=== PATIENT | male | born 1930 | race Caucasian/White ===

== ENCOUNTER → 2016-10-19 | Outpatient (CLI) | payer MEDICARE ==
[~2016-10-19] MED LIST: ASPI-875 PO; CARV6.252 PO; HCTZ12.5T PO; HYDR-757 PO; LISI20TA PO; METR500T PO; MTF500T PO; MULT-963 PO; OMEG-12 PO; ROSU10TA12 PO; ROSU5TAB PO; TRAM50TA2 PO
--- NOTE | 2016-10-19 14:56 | Diagnostic Imaging Report ---
INDICATION: Pneumonia and abnormal lung sounds. PA and lateral views of the chest are obtained. Comparison is made to study of 02/14/2016. Overall heart size is within normal limits. There is air trapping bilaterally with persistent prominent interstitial markings throughout the lungs. There is no evidence of pneumothorax or significant pleural fluid. Overall, there has been no significant change. 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 No acute abnormality is identified. Dictated by: Dictated on workstation # [id number]
[2016-10-19 15:03] LABS: BASOPHILS % (AUTO) 0 % (0-10); EOSINOPHILS # (AUTO) 0.8 10^3/uL (0.0-0.3); EOSINOPHILS % (AUTO) 9 % (0-10); LYMPHOCYTES # (AUTO) 1.5 X 10^3 (1.0-4.0); LYMPHOCYTES % (AUTO) 16 % (12-44); MEAN CORPUSCULAR HEMOGLOBIN 32 PG (25-34); MEAN CORPUSCULAR HGB CONC 34 G/DL (32-36); MEAN CORPUSCULAR VOLUME 94 FL (80-99); MEAN PLATELET VOLUME 11.2 FL (7.4-10.4); MONOCYTES # (AUTO) 0.9 X 10^3 (0.0-1.0); MONOCYTES % (AUTO) 10 % (0-12); NEUTROPHILS # (AUTO) 6.1 X 10^3 (1.8-7.8); NEUTROPHILS % (AUTO) 65 % (42-75); PLATELET COUNT 164 10^3/uL (130-400); RED BLOOD COUNT 4.28 10^6/uL (4.35-5.85); RED CELL DISTRIBUTION WIDTH 13.5 % (10.0-14.5); WHITE BLOOD COUNT 9.3 10^3/uL (4.3-11.0)
[2016-10-19 15:25] LABS: ALANINE AMINOTRANSFERASE 22 U/L (0-55); ALBUMIN 4.2 GM/DL (3.2-4.5); ANION GAP 16 MMOL/L (5-14); ASPARTATE AMINO TRANSFERASE 18 U/L (5-34); BILIRUBIN,TOTAL 0.6 MG/DL (0.1-1.0); BLOOD UREA NITROGEN 16 MG/DL (7-18); BUN/CREATININE RATIO 16; CALCIUM 9.4 MG/DL (8.5-10.1); CARBON DIOXIDE 22 MMOL/L (21-32); CHLORIDE 98 MMOL/L (98-107); CREATININE SERUM 0.98 MG/DL (0.60-1.30); GFR ESTIMATED > 60; GLUCOSE 165 MG/DL (70-105); POTASSIUM 4.5 MMOL/L (3.6-5.0); SODIUM 136 MMOL/L (135-145)
== END ==
LOC: RAD 14:24
PROVIDERS: ATTEND Internal Medicine
DX: R06.02 Shortness of breath (principal); R53.83 Other fatigue; R60.9 Edema, unspecified
CPT/HCPCS: 36415; 71020; 80053; 83880; 85025

== ENCOUNTER → 2016-11-06 | Outpatient (CLI) | payer MEDICARE | LOC: RT 13:01 | PROVIDERS: ATTEND Nurse Practitioner | DX: R53.83 Other fatigue (principal); R06.02 Shortness of breath | CPT/HCPCS: 94060; 94726; 94729 ==

== ENCOUNTER 2016-12-11 13:39 | Outpatient (CLI) | payer MEDICARE ==
[~2016-12-11] VITALS: Ht 172.7 cm; Wt 75.3 kg
[2016-12-11 13:53] VITALS: BP 161/70
[2016-12-11] MEDS ORDERED: ATOR20TA66 PO (13:59)
[2016-12-11] MEDS ORDERED: OMEG-126 PO (13:59)
[2016-12-11] MEDS ORDERED: CARV6.252 PO (13:59)
[2016-12-11] MEDS ORDERED: HYDR12.5 PO (13:59)
[2016-12-11] MEDS ORDERED: METF1000 PO (13:59)
[2016-12-11] MEDS ORDERED: ASPI-999 PO (13:59)
[2016-12-11] MEDS ORDERED: CINN1CAP PO (13:59)
[2016-12-11] MEDS ORDERED: UBIQ75CA PO (13:59)
[2016-12-11] MEDS ORDERED: MULT1CAP27 PO (13:59)
[2016-12-11] MEDS ORDERED: SAW450CA4 PO (13:59)
[2016-12-11 14:28] LABS: BASOPHILS % (AUTO) 1 % (0-10); EOSINOPHILS # (AUTO) 0.4 10^3/uL (0.0-0.3); EOSINOPHILS % (AUTO) 4 % (0-10); LYMPHOCYTES # (AUTO) 1.1 X 10^3 (1.0-4.0); LYMPHOCYTES % (AUTO) 14 % (12-44); MEAN CORPUSCULAR HEMOGLOBIN 32 PG (25-34); MEAN CORPUSCULAR HGB CONC 34 G/DL (32-36); MEAN CORPUSCULAR VOLUME 94 FL (80-99); MEAN PLATELET VOLUME 11.3 FL (7.4-10.4); MONOCYTES # (AUTO) 0.7 X 10^3 (0.0-1.0); MONOCYTES % (AUTO) 9 % (0-12); NEUTROPHILS # (AUTO) 6.1 X 10^3 (1.8-7.8); NEUTROPHILS % (AUTO) 73 % (42-75); PLATELET COUNT 176 10^3/uL (130-400); RED BLOOD COUNT 4.03 10^6/uL (4.35-5.85); RED CELL DISTRIBUTION WIDTH 13.4 % (10.0-14.5); WHITE BLOOD COUNT 8.4 10^3/uL (4.3-11.0)
[2016-12-11 14:45] LABS: ANION GAP 9 MMOL/L (5-14); BLOOD UREA NITROGEN 13 MG/DL (7-18); BUN/CREATININE RATIO 15; CALCIUM 9.3 MG/DL (8.5-10.1); CARBON DIOXIDE 27 MMOL/L (21-32); CHLORIDE 97 MMOL/L (98-107); CREATININE SERUM 0.85 MG/DL (0.60-1.30); GFR ESTIMATED > 60; GLUCOSE 178 MG/DL (70-105); POTASSIUM 4.2 MMOL/L (3.6-5.0); SODIUM 133 MMOL/L (135-145)
== END 2016-12-11 14:20 | disposition home or self-care (01) ==
LOC: PREOP 13:39
PROVIDERS: ATTEND Otolaryngology Otolaryngology/Facial Plastic Surgery
DX: Z01.818 Encounter for other preprocedural examination (principal); L98.9 Disorder of the skin and subcutaneous tissue, unspecified
CPT/HCPCS: 36415; 80048; 85025; 87081; 93005

== ENCOUNTER 2016-12-14 06:53 | Day surgery (SDC) | payer MEDICARE ==
[~2016-12-14] VITALS: Ht 172.7 cm; Wt 75.3 kg
[~2016-12-14 06:53] MED LIST changes: +ASPI-999 PO; +ATOR20TA66 PO; +CINN1CAP PO; +HYDR12.5 PO; +METF1000 PO; +MULT1CAP27 PO; +OMEG-126 PO; +SAW450CA4 PO; +UBIQ75CA PO
[2016-12-14] MEDS ORDERED: LACTATED RINGERS 1,000 ML IV PRN (07:13)
--- NOTE | 2016-12-14 07:44 | Progress Note-Pre Operative ---
Pre-Operative Progress Note H&P Reviewed The H&P was reviewed, patient examined and no changes noted. Date Seen by Provider: Dec 14, 2016 Time Seen by Provider: 07:30 Date H&P Reviewed: Dec 14, 2016 Time H&P Reviewed: :30 Pre-Operative Diagnosis: Posterior SCalp Lesion MAIA REYES MD Dec 14, 2016 7:44 am
[2016-12-14] MEDS ORDERED: MIDAZOLAM 2 MG/2 ML (VERSED) VIAL ONE (07:56)
[2016-12-14 08:00] VITALS: BP 175/104
[2016-12-14] MEDS ORDERED: LIDOCAINE/EPI 1%-1:200,000 (XYLOCAINE) 10 ML VIAL ONE (08:00)
[2016-12-14] MEDS ORDERED: MUPIROCIN 2% OINT 22 GM (BACTROBAN) TUBE ONE (08:00)
[2016-12-14] MEDS ORDERED: MIDAZOLAM 2 MG/2 ML (VERSED) VIAL IV ONE (08:15)
[2016-12-14] MEDS ORDERED: LACTATED RINGERS 1,000 ML IV ONE (08:47)
[2016-12-14] MEDS ORDERED: proPOfol 200 MG/20 ML (DIPRIVAN) VIAL IV ONE (08:47)
[2016-12-14] MEDS ORDERED: LIDOCAINE PF 2% 5 ML (XYLOCAINE) VIAL ONE (08:47)
[2016-12-14] MEDS ORDERED: ONDANSETRON 4 MG/2 ML (SDV) Z0FRAN ONE (08:47)
[2016-12-14] MEDS ORDERED: fentaNYL INJECTION 100 MCG/2 ML AMP ONE (08:48)
--- NOTE | 2016-12-14 10:23 | Progress Note-Post Operative ---
Post-Operative Progess Note Surgeon (s)/Graphic Design Teacher (s) Surgeon MAIA REYES MD Graphic Design Teacher n/a Pre-Operative Diagnosis Posterior Scalp Lesion Post-Operative Diagnosis same Post-Op Procedure Note Date of Procedure: Dec 14, 2016 Name of Procedure Performed: Excision of Posterior Scalp Mass, Complex Repair Description & Findings Description and Findings: n/a Anesthesia Type lma Estimated Blood Loss minimal Packing none. Specimen(s) collected/removed posterior scalp mass for frozen MAIA REYES MD Dec 14, 2016 10:23 am
[2016-12-14] MEDS ORDERED: HYDROcodone/APAP 5 MG/325 MG (LORTAB) TAB PO PRN (10:30)
[2016-12-14] MEDS ORDERED: ACETAMINOPHEN 325 MG TABLET/CAPLET (TYLENOL) PO PRN (10:30)
[2016-12-14] MEDS ORDERED: morphine INJ 10 MG/ML 1ML (SYR OR VIAL) IVP PRN (10:45)
[2016-12-14] MEDS ORDERED: ONDANSETRON 4 MG/2 ML (SDV) Z0FRAN IVP PRN (10:45)
[2016-12-14] MEDS ORDERED: SEVOFLURANE (ULTANE) 15 ML INHAL SOLN ONE (10:49)
[2016-12-14 11:35] VITALS: BP 133/74
[2016-12-14] MEDS ORDERED: MUPI22OI2 TP (11:54)
[2016-12-14] MEDS ORDERED: HYDR-3812 PO (11:54)
[2016-12-14 12:05] VITALS: BP 141/71
[2016-12-14 12:35] VITALS: BP 147/78
== END 2016-12-14 12:40 | disposition home or self-care (01) ==
LOC: SDC 06:53
PROVIDERS: ATTEND Otolaryngology Otolaryngology/Facial Plastic Surgery
DX: C44.42 Squamous cell carcinoma of skin of scalp and neck (principal); I25.10 Atherosclerotic heart disease of native coronary artery without angina pectoris; I10 Essential (primary) hypertension; E11.42 Type 2 diabetes mellitus with diabetic polyneuropathy; K21.9 Gastro-esophageal reflux disease without esophagitis; Z79.84 Long term (current) use of oral hypoglycemic drugs; Z79.899 Other long term (current) drug therapy; Z87.891 Personal history of nicotine dependence; Z95.5 Presence of coronary angioplasty implant and graft
CPT/HCPCS: 82962; 88305; 88331; 88332

== ENCOUNTER 2017-07-12 08:00 | Outpatient (RCR) | payer MEDICARE ==
[~2017-07-12 08:00] MED LIST changes: +ACHD5005 PO; -METF1000 PO; +METF10002 PO; +MUPI22OI2 TP; -SAW450CA4 PO; +SAW450CA7 PO
== END 2017-11-07 | disposition home or self-care (01) ==
LOC: DSME 08:00
PROVIDERS: ATTEND Nurse Practitioner
DX: E11.65 Type 2 diabetes mellitus with hyperglycemia (principal); I10 Essential (primary) hypertension

== ENCOUNTER 2017-12-19 13:27 | Outpatient (RCR) | payer MEDICARE ==
[~2017-12-19 13:27] MED LIST changes: +HYDR-4226 PO; -HYDR-757 PO; +METF-399 PO; -METF10002 PO
== END 2018-01-16 13:12 | disposition home or self-care (01) ==
PROVIDERS: ATTEND Internal Medicine
DX: M25.511 Pain in right shoulder (principal)

== ENCOUNTER 2018-01-16 13:35 | Outpatient (RCR) | payer MEDICARE | END 2018-01-16 14:25 | disposition home or self-care (01) | PROVIDERS: ATTEND Internal Medicine | DX: M25.511 Pain in right shoulder (principal) ==

== ENCOUNTER → 2018-03-27 | Outpatient (CLI) | payer MEDICARE ==
--- NOTE | 2018-03-27 10:26 | Diagnostic Imaging Report ---
Clinical indication: Patient with cough for past week. Evaluate for pneumonia. Exam: Chest x-ray PA and lateral views. Comparisons: Chest x-ray dated 10/19/2016. Findings: Lungs/pleura: Stable appearance of the chest with increased lung markings throughout which is worse in the left lung base. Slight low lung volumes are again seen. There is no pneumothorax. There is no pleural effusion. Mediastinum: Unremarkable. Pulmonary vasculature: Unremarkable. Heart: Unremarkable. Bones/extrathoracic soft tissue: There are mildly hypertrophic degenerative osteophytes scattered throughout the thoracic spine. Impression: 1: Stable chest x-ray exam with no interval radiographic evidence of acute cardiopulmonary process. 2: Stable increased lung markings throughout both lungs with the left lung base affected the most. There is also slight low lung volumes seen. These findings may related to chronic interstitial lung disease. Dictated by: Dictated on workstation # [id number]
== END ==
LOC: RAD 09:54
PROVIDERS: ATTEND Nurse Practitioner
DX: J18.9 Pneumonia, unspecified organism (principal); R91.8 Other nonspecific abnormal finding of lung field
CPT/HCPCS: 71046

== ENCOUNTER → 2018-04-02 | Outpatient (CLI) | payer MEDICARE | LOC: CARD 14:09 | PROVIDERS: ATTEND Nurse Practitioner | DX: R00.1 Bradycardia, unspecified (principal) | CPT/HCPCS: 93225; 93226 ==

== ENCOUNTER → 2018-04-17 | Emergency (ER) | payer MEDICARE ==
[~2018-04-17] VITALS: Ht 167.6 cm; Wt 74.8 kg
[~2018-04-17] MED LIST changes: +FAMO40TA6; +TETANUS,DIPTH,PERTUSS P/F (BOOSTRIX) 0.5 ML VIAL IM ONE
--- NOTE | 2018-04-17 15:19 | ED Head Injury ---
General Chief Complaint: Trauma-Non Activation Stated Complaint: HEAD INJ Nursing Triage Note: PT SENT OVER FROM DR BALLARD OFFICE FOR FALL. PT STATES HE TRIPPED WALKING ALONG THE SIDEWALK ON THE WAY TO APPOINTMENT. STATES HE FELL AND HIT HEAD. DENIES LOC. HAS SMALL LACERATION TO RIGHT EYE BROW. DRESSING PLACED BY NELLIE JACKSON. Source: patient Exam Limitations: no limitations History of Present Illness Date Seen by Provider: Apr 17, 2018 Time Seen by Provider: 15:15 Initial Comments To ER with reports of a head injury. He was walking into his doctor's office and there was some uneven sidewalk, he stumbled over this falling face first. He struck the right lateral eyebrow where there is no laceration. He went on into the doctor's office, they cleaned his wounds, glued laceration and placed Steri-Strips over it. Comes here for head CT. Did not lose consciousness, has no neck pain, has no headache, no dizziness no vision changes and no nausea. He is on aspirin daily. Tetanus is not up-to-date. Occurred: just prior to arrival Severity: mild Location: frontal Method of Injury: fell Loss of Consciousness: no loss of consciousness Associated Systoms: No Headaches, No Nausea/Vomiting Allergies and Home Medications Allergies Coded Allergies: No Known Drug Allergies (Unverified , 03/29/12) Home Medications Aspirin 81 Mg Tab.chew, 81 MG PO DAILY, (Reported) Atorvastatin Calcium 20 Mg Tablet, 20 MG PO HS, (Reported) Carvedilol 6.25 Mg Tablet, 6.25 MG PO BID, (Reported) Cinnamon Bark/Chromium Picolin 1 Each Capsule, 1 EACH PO DAILY, (Reported) Hydrochlorothiazide 12.5 Mg Capsule, 12.5 MG PO DAILY, (Reported) Hydrocodone Bit/Acetaminophen 1 Each Tablet, 1 TAB PO Q4H PRN for PAIN Prescribed by: MATTEO SCHUSTER on 12/14/16 1154 Lisinopril 20 Mg Tablet, 20 MG PO DAILY, (Reported) Metformin HCl 1,000 Mg Tablet, 1,000 MG PO BID, (Reported) Multivitamin 1 Each Capsule, 1 EACH PO DAILY, (Reported) Mupirocin 22 Gm Oint...g., 0.5 GM TP BID Prescribed by: MATTEO SCHUSTER on 12/14/16 1154 [place]-3/Dha/Epa/Fish Oil 1 Each Capsule.dr, 1 EACH PO DAILY, (Reported) Saw [place] Fruit 450 Mg Capsule, 450 MG PO BID, (Reported) Ubidecarenone 75 Mg Capsule, 75 MG PO DAILY, (Reported) Patient Home Medication List Home Medication List Reviewed: Yes Review of Systems Review of Systems Constitutional: see HPI Eyes: No Symptoms Reported Ears, Nose, Mouth, Throat: no symptoms reported Respiratory: no symptoms reported Cardiovascular: no symptoms reported Genitourinary: no symptoms reported Musculoskeletal: no symptoms reported Skin: no symptoms reported Psychiatric/Neurological: No Symptoms Reported Past Mlyfixh-Nokdai-Kttadv Hx Patient Social History Alcohol Use: Denies Use Recreational Drug Use: No Smoking Status: Former Smoker Type Used: Pipe Former Smoker, Quit: Dec 11, 1977 Recent Foreign Travel: No Contact w/Someone Who Travel: No Recent Infectious Disease Expo: No Recent Hopitalizations: No Immunizations Up To Date Tetanus Booster (TDap): Unknown Date of Pneumonia Vaccine: Mar 29, 2009 Date of Influenza Vaccine: Dec 25, 2011 Seasonal Allergies Seasonal Allergies: Yes Past Medical History Surgeries: Yes (CYST REMOVED FROM BACK OF NECK) Tonsillectomy, Vasectomy Respiratory: Yes (RECENT PFT) Cardiac: Yes (STENT PLACED) High Cholesterol, Hypertension, Irregular Heartbeat Neurological: Yes Neuropathy Reproductive Disorders: No Gastrointestinal: Yes Diverticulosis Musculoskeletal: Yes Arthritis Endocrine: Yes Diabetes, Non-Insulin dep Cataract Loss of Vision: Denies Hearing Impairment: Denies Cancer: Yes Skin Psychosocial: No Integumentary: Yes (SCALP LESION) Blood Disorders: No Physical Exam Vital Signs Vital Signs - First Documented 04/17/18 15:05 Pulse 58 Resp 16 B/P (MAP) 188/108 (134) Pulse Ox 96 O2 Delivery Room Air Capillary Refill : Less Than 3 Seconds Height, Weight, BMI Height: 5'6.00" Weight: 165lbs. 0.0oz. 74.211386gi; 25.2 BMI Method:Stated General Appearance: WD/WN, no apparent distress HEENT: PERRL/EOMI, normal ENT inspection, TMs normal, other (1 cm laceration over the lateral eyebrow on the right that has been clean, glued and covered with 2 Steri-Strips. No active bleeding.) Neck: non-tender, full range of motion; No tender lateral, No tender midline; other (full range of motion of the neck) Respiratory: normal breath sounds, no respiratory distress, no accessory muscle use Extremities: normal range of motion, non-tender Psychiatric: alert, oriented x 3 Crainal Nerves: normal hearing, normal speech Motor/Sensory: no motor deficit Skin: normal color, warm/dry Ambulatory to room 5. [place] Coma Score Best Eye Response: (4) Open Spontaneously Best Verbal Response: (5) Oriented Best Motor Response: (6) Obeys Commands [place] Total: 15 Procedures/Interventions Suture Size: 5-0 Progress/Results/Core Measures Results/Orders My Orders Orders - CARMEN GRIMM APRN Ct Head/Cervical Spine Wo (04/17/18 15:15) Vital Signs/I&O 04/17/18 15:05 Pulse 58 Resp 16 B/P (MAP) 188/108 (134) Pulse Ox 96 O2 Delivery Room Air Blood Pressure Mean: 134 Departure Impression Primary Impression: Closed head injury Qualified Codes: S09.90XA - Unspecified injury of head, initial encounter Disposition: HOME, SELF-CARE Condition: Stable Departure-Patient Inst. Decision time for Depature: 15:18 Referrals: ANNA CABAN MD (PCP/Family) Primary Care Physician Patient Instructions: Minor Head Injury (DC) Add. Discharge Instructions: 1. ER for any severe headache, any confusion vomiting or other concerns. Follow- up with your doctor next week for recheck. All discharge instructions reviewed with patient and/or family. Voiced understanding. CARMEN GRIMM APRN Apr 17, 2018 15:19
--- NOTE | 2018-04-17 15:39 | Diagnostic Imaging Report ---
PROCEDURE: CT head and CT cervical spine without contrast. TECHNIQUE: Multiple contiguous axial images were obtained through the brain and cervical spine without the use of intravenous contrast. Sagittal and coronal reformations through the cervical spine were then performed. INDICATION: Fall with head and neck injury. COMPARISON: No prior studies are available for comparison. CT HEAD: The ventricles and sulci are consistent with the patient's age. No sulcal effacement, midline shift or hemorrhage is detected. Cisterns are patent. Visualized paranasal sinuses are clear. IMPRESSION: No acute intracranial process is detected. CT CERVICAL SPINE: Curvature and alignment of the cervical spine is normal. There is multilevel degenerative disc and facet disease. There is variable disc space narrowing and marginal spurring. Vacuum disc is seen at the C5-6 and C6-7 levels. No fractures are identified. The prevertebral tissues are within normal limits. Odontoid appears intact. IMPRESSION: Cervical spondylosis. No acute bony abnormality is detected. Dictated by: Dictated on workstation # [id number]
[2018-04-17 16:04] VITALS: BP 168/73
== END | disposition home or self-care (01) ==
LOC: EDUNIT# 14:59 → ER 15:00
DX: S09.90XA Unspecified injury of head, initial encounter (principal); E78.00 Pure hypercholesterolemia, unspecified; I10 Essential (primary) hypertension; E11.40 Type 2 diabetes mellitus with diabetic neuropathy, unspecified; R40.2142 Coma scale, eyes open, spontaneous, at arrival to emergency department; R40.2252 Coma scale, best verbal response, oriented, at arrival to emergency department; R40.2362 Coma scale, best motor response, obeys commands, at arrival to emergency department; Z87.19 Personal history of other diseases of the digestive system; Z85.828 Personal history of other malignant neoplasm of skin; Z79.82 Long term (current) use of aspirin; Z79.84 Long term (current) use of oral hypoglycemic drugs; Z87.891 Personal history of nicotine dependence; Z98.890 Other specified postprocedural states; Z90.89 Acquired absence of other organs; Z98.52 Vasectomy status; Z95.5 Presence of coronary angioplasty implant and graft; W01.198A Fall on same level from slipping, tripping and stumbling with subsequent striking against other object, initial encounter; Y92.480 Sidewalk as the place of occurrence of the external cause
CPT/HCPCS: 70450; 72125; 90715

== ENCOUNTER → 2018-04-29 | Outpatient (CLI) | payer MEDICARE ==
[~2018-04-29] MED LIST changes: -TETANUS,DIPTH,PERTUSS P/F (BOOSTRIX) 0.5 ML VIAL IM ONE
== END ==
LOC: CARD 12:47
PROVIDERS: ATTEND Internal Medicine Cardiovascular Disease
DX: I25.10 Atherosclerotic heart disease of native coronary artery without angina pectoris (principal); I10 Essential (primary) hypertension; E78.2 Mixed hyperlipidemia; I49.1 Atrial premature depolarization; I49.3 Ventricular premature depolarization; E11.9 Type 2 diabetes mellitus without complications; I08.1 Rheumatic disorders of both mitral and tricuspid valves
CPT/HCPCS: 93306

== ENCOUNTER → 2018-05-01 | Outpatient (CLI) | payer MEDICARE ==
[~2018-05-01] MED LIST changes: +CATHETER FLUSH 10 ML SYR IV PRN; +REGADENOSON 0.4 MG/5 ML SYR (LEXISCAN) IV ONE
[2018-05-01 09:05] VITALS: BP 212/90
[2018-05-01 09:08] VITALS: BP 160/82
--- NOTE | 2018-05-01 14:34 | STRESS TEST ---
DATE OF SERVICE: 05/01/2018 LEXISCAN MYOVIEW STRESS TEST REPORT REFERRING PHYSICIAN: Dr. Huang. Baseline heart rate is 56, baseline blood pressure 212/90. Baseline EKG is sinus rhythm with occasional PVCs. In summary, the patient was injected with 10.8 mCi of technetium-99 Myoview and the resting images were obtained. Then, the patient received 0.4 mg of Lexiscan followed by 29.4 mCi of technetium-99 Myoview. Throughout the test, there were no EKG changes. The resting and stress images were reviewed and compared in the short axis, horizontal long axis, and vertical long axis views. Review of the images showed diaphragmatic attenuation with decreased uptake involving the basal to mid inferior wall, inferolateral wall and anterolateral wall with mild reversibility. SSS is 16. SDS is 4. TID value 1.07. On the gated images, the left ventricle appeared to be normal size with hypokinesia of the inferior wall. Calculated ejection fraction 58%. CONCLUSION: 1. The patient tolerated Lexiscan well. 2. Fixed defect involving the whole inferior wall and inferolateral wall with mild reversibility involving the inferolateral and anterolateral wall. 3. Normal left ventricular size with mild hypokinesia in the inferior wall, still have some preserved contractility. Calculated ejection fraction 58%. Job ID: [id number] DocumentID: [id number] Dictated Date: 05/01/2018 14:01:38 Station Baggage Agent Date: 05/01/2018 14:34:06 Dictated By: DEWEY CARLOS MD
== END ==
LOC: CARD 07:15
PROVIDERS: ATTEND Internal Medicine Cardiovascular Disease
DX: I25.10 Atherosclerotic heart disease of native coronary artery without angina pectoris (principal); I10 Essential (primary) hypertension; E78.2 Mixed hyperlipidemia; I49.1 Atrial premature depolarization; I49.3 Ventricular premature depolarization; E11.9 Type 2 diabetes mellitus without complications
CPT/HCPCS: 78452; 93017

== ENCOUNTER 2018-05-08 11:46 | Day surgery (SDC) | payer MEDICARE ==
[~2018-05-08] VITALS: Ht 172.7 cm; Wt 73.9 kg
[2018-05-08] VITALS (9 sets, daily range): BP systolic 132–197; BP diastolic 66–82
[~2018-05-08 11:46] MED LIST changes: -CATHETER FLUSH 10 ML SYR IV PRN; -REGADENOSON 0.4 MG/5 ML SYR (LEXISCAN) IV ONE
[2018-05-08] MEDS ORDERED: LIDOCAINE 1% INJ 20 ML 20 ML VIAL ONE (11:50)
[2018-05-08] MEDS ORDERED: NS IV 1000 ML 1,000 ML ONE (11:50)
[2018-05-08] MEDS ORDERED: HEParin (CATH LAB) 2,000 ML IV ONE (11:51)
[2018-05-08] MEDS ORDERED: NS IV 1000 ML 1,000 ML IV SCH ×2 (11:58→14:23)
[2018-05-08 12:30] LABS: HEMOGLOBIN 13.7 G/DL (13.3-17.7); MEAN PLATELET VOLUME 10.9 FL (7.4-10.4); RED CELL DISTRIBUTION WIDTH 13.8 % (10.0-14.5); WHITE BLOOD COUNT 8.9 10^3/uL (4.3-11.0)
[2018-05-08 12:35] LABS: BILIRUBIN,URINE NEGATIVE (NEGATIVE); CLARITY,URINE CLEAR; COLOR,URINE YELLOW; GLUCOSE, URINE (UA) NEGATIVE (NEGATIVE); KETONES,URINE NEGATIVE (NEGATIVE); LEUKOCYTE ESTERASE ,URINE NEGATIVE (NEGATIVE); NITRITE,URINE NEGATIVE (NEGATIVE); PH,URINE 6 (5-9); PROTEIN,URINE 1+ (NEGATIVE); UROBILINOGEN,URINE NORMAL (NORMAL)
[2018-05-08] MEDS ORDERED: AMLO5TAB9 PO (12:42)
[2018-05-08] MEDS ORDERED: CARV12.52 PO (12:42)
[2018-05-08 12:43] LABS: BACTERIA,URINE NEGATIVE /HPF
[2018-05-08 12:45] LABS: PROTHROMBIN TIME PATIENT 13.5 SEC (12.2-14.7)
[2018-05-08 12:49] LABS: ALANINE AMINOTRANSFERASE 22 U/L (0-55); ALBUMIN 4.5 GM/DL (3.2-4.5); ALKALINE PHOSPHATASE 57 U/L (40-136); BILIRUBIN,TOTAL 0.8 MG/DL (0.1-1.0); BUN/CREATININE RATIO 14; CALCIUM 9.7 MG/DL (8.5-10.1); CARBON DIOXIDE 26 MMOL/L (21-32); CHLORIDE 97 MMOL/L (98-107); CHOLESTEROL 107 MG/DL (< 200); CREATININE SERUM 0.92 MG/DL (0.60-1.30); GFR ESTIMATED > 60; GLUCOSE 158 MG/DL (70-105); HDL CHOLESTEROL 53 MG/DL (40-60); POTASSIUM 4.2 MMOL/L (3.6-5.0); SODIUM 134 MMOL/L (135-145); TOTAL PROTEIN 7.5 GM/DL (6.4-8.2); TRIGLYCERIDES 78 MG/DL (<150); VLDL CHOLESTEROL 16 MG/DL (5-40)
--- NOTE | 2018-05-08 12:50 | Diagnostic Imaging Report ---
EXAMINATION: Portable erect AP chest at 12:23 p.m. INDICATION: Preop heart cath. FINDINGS: The heart size is within normal limits and stable when compared to 03/27/2018. The chronic pulmonary changes involving the lung bases seen previously are again evident. The upper lungs remain clear. There is no sign of a pleural effusion. The mediastinum is not widened. The osseous structures are intact. IMPRESSION: Stable chest. There has been no adverse change since the prior exam. Dictated by: Dictated on workstation # [id number]
[2018-05-08] MEDS ORDERED: MIDAZOLAM 5 MG/5 ML (VERSED) VIAL ONE (13:22)
[2018-05-08] MEDS ORDERED: fentaNYL INJECTION 100 MCG/2 ML AMP ONE (13:22)
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
--- NOTE | 2018-05-08 14:25 | Discharge Inst-Post CATH ---
Discharge Inst-CATH/EP Post Cardiac Cath/EP D/C Inst Follow Up/Plan Hold metformin for [address] Hernandez's office in 4 weeks CARDIAC CATH DISCHARGE INSTRUCTIONS *Hold Metformin for 48 hours post heart cath. ACTIVITY * Go Home directly and rest. * Limit activity of the leg (or wrist if it was used) for 7 days including aerobics, swimming, jogging, bicycling, etc. * Restrict stair-climbing for 7 days if possible, if not, climb up with your non -cath leg, then bring together on the same step. * Avoid lifting, pushing, pulling or excessive movement of the affected extremity for 7 days. * Customary sexual activity may be resumed after 2 days-use caution not to use a position that strains or causes pain to the affected extremity. * No driving for 24 hours. * NO SMOKING. * Avoid straining for bowel movements for 7 days. * Gentle walking on level ground is allowed. * Returning to work will depend on the type of procedure and the results. Your doctor will discuss this with you. CALL YOUR DOCTOR FOR ANY OF THE FOLLOWING: *If bleeding from the puncture site occurs- Apply gentle pressure to site with clean cloth and call your doctor or EMS. * If a knot or lump forms under the skin, increases in size, or causes pain. * If bruising appears to be worsening or moving further down your leg instead of disappearing. * Temperature above 101 F. CARE OF YOUR GROIN INCISION; * Bruising or purple discoloration of the skin near the puncture site is common. * You may shower only, no bathtub bathing for 5 days. Be careful to avoid slipping as your leg may feel stiff. * If a closure device was used on your femoral artery, please see the attached guide regarding care of the device and your leg. * Leave the dressing on, until removed by office staff. CARE OF YOUR WRIST INCISION; * Bruising or purple discoloration of the skin near the puncture site is common. * You may shower. * DO NOT submerge wrist. * Leave dressing on, until removed by office staff.. DEWEY HERNANDEZ MD May 08, 2018 14:25
[2018-05-08] MEDS ORDERED: PATIENT MAY USE OWN MEDS, ALL PO SCH (14:30)
--- NOTE | 2018-05-08 14:30 | Cardiac Cath Report ---
Cardiac Cath Report Physician (s)/Pharmacy Cashier (s) Physician DEWEY CARLOS MD Pre-Procedure Diagnosis Pre-Procedure Diagnosis: coronary artery disease Post-Procedure Note Procedure Start Date: May 08, 2018 Name of Procedure: left heart catheterization Findings/Procedure Note PROCEDURE NOTE: 87 years old gentleman with history of coronary artery disease, had an abnormal stress test, scheduled for cardiac catheterization. ExcellentAfter explaining the procedure to the patient, all pros and cons were explained, all questions were answered. The patient signed the consent and then he was placed on the cardiac catheterization laboratory. Groin was prepped SL fashion local anesthesia was used. Sheath placed in the right femoral artery. Ani right and left catheter were used to access the coronary system. Pigtail was used to access the left ventricular cavity. Left ventriculogram was done Aortic arch angiogram was done At the end of the procedure the sheath was removed. Closure device was used FINDINGS: Hemodynamics LV 167/16, end-diastolic pressure of 16 Aorta 165/60 mean of 93 ANATOMY: Left Main has a stent with 50-60 percent in-stent restenosis Left Anterior Descending has moderate disease, nonobstructive disease Left Circumflex has veac-ms-hzfgpiqd disease nonobstructive disease Right Coronory Artery is totally occluded proximally with collaterals filling the right coronary artery from the left system LV Gram is prominent with inferior wall hypokinesia, estimated ejection fraction 45 percent Aorta evaluation done with aortic arch angiogram which showed hypertensive changes in the aortic arch, origin of the innominate artery showed some tortuosity, no dissection, no obstructive disease, left carotid artery and left subclavian arteries has some tortuosity with mild disease no obstructive disease , aortic arch evaluation showed no dissection or aneurysm CONCLUSION: 1. Patent stent in the left main coronary artery with 50-60 percent in-stent restenosis, close monitoring is recommended 2. 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 Mild hypokinesia at the inferior wall with preserved systolic function and ejection fraction 45 percent 4. 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
--- NOTE | 2018-05-08 19:26 | NUR ---
PATIENT DISCHARGED, LEFT UNIT VIA WHEELCHAIR, HAD PERSONAL BELONGINGS IN HAND. AT TIME OF DISCHARGE, RT GROIN HAD NO SWELLING OR DRAINAGE, DRESSING CLEAN DRY AND INTACT. PATIENT VERBALIZED UNDERSTANDING OF ALL DISCHARGE INSTRUCTIONS, HAS APPT WITH BREANNA IN 4 WEEKS. PATIENT STABLE FOR DISCHARGE.
== END 2018-05-08 18:55 | disposition home or self-care (01) ==
LOC: CATH 11:46 → ICU 14:40 → CATH 18:55
PROVIDERS: ATTEND Internal Medicine Cardiovascular Disease
DX: I25.10 Atherosclerotic heart disease of native coronary artery without angina pectoris (principal); I11.0 Hypertensive heart disease with heart failure; I50.22 Chronic systolic (congestive) heart failure; I25.5 Ischemic cardiomyopathy; E78.2 Mixed hyperlipidemia; E11.9 Type 2 diabetes mellitus without complications; R55 Syncope and collapse; I49.1 Atrial premature depolarization; Z79.82 Long term (current) use of aspirin; Z79.899 Other long term (current) drug therapy; Z79.84 Long term (current) use of oral hypoglycemic drugs; I25.2 Old myocardial infarction; Z87.891 Personal history of nicotine dependence; I65.23 Occlusion and stenosis of bilateral carotid arteries; J44.9 Chronic obstructive pulmonary disease, unspecified; Z85.828 Personal history of other malignant neoplasm of skin; Z11.2 Encounter for screening for other bacterial diseases
CPT/HCPCS: 36221; 36415; 71045; 80053; 80061; 81000; 85027; 85610; 85730; 87081; 93458

== ENCOUNTER 2019-03-19 16:27 | Inpatient (IN) | payer MEDICARE ==
[~2019-03-19] VITALS: Ht 172.7 cm; Wt 70.5 kg
[~2019-03-19 16:27] MED LIST changes: +AMLO5TAB9 PO; +CARV12.52 PO
--- NOTE | 2019-03-19 16:55 | ED GI ---
General Chief Complaint: Rect Problems Stated Complaint: BLEEDING FROM ANUS Nursing Triage Note: Pt amb to room #6 with c/o rectal bleeding. 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 Pt denies pain or fever and reports light headedness. Pt reports hx diverticulitis. Sepsis Screen: No Definite Risk Source of Information: Patient Exam Limitations: No Limitations History of Present Illness Date Seen by Provider: Mar 19, 2019 Time Seen by Provider: 16:53 Initial Comments Rectal bleeding onset just prior to arrival. He felt the urge to have a bowel movement, did so and noticed the toilet to be filled with blood. No fevers or chills, he did have some periumbilical abdominal discomfort earlier today that has resolved. He does have a history of diverticulitis, most recent colonoscopy about 3 years ago. Only anticoagulant medication is aspirin Timing/Duration: 1-2 Days Severity/Quality: Moderate Location: Periumbilical Radiation: No Radiation Activities at Onset: None Associated Symptoms: Denies Symptoms Allergies and Home Medications Allergies Coded Allergies: No Known Drug Allergies (Unverified , 03/29/12) Home Medications Amlodipine Besylate 5 Mg Tablet, 5 MG PO DAILY, (Reported) Aspirin 81 Mg Tab.chew, 81 MG PO DAILY, (Reported) Atorvastatin Calcium 20 Mg Tablet, 20 MG PO HS, (Reported) Carvedilol 12.5 Mg Tablet, 12.5 MG PO BID, (Reported) Hydrochlorothiazide 12.5 Mg Capsule, 12.5 MG PO DAILY, (Reported) Lisinopril 20 Mg Tablet, 20 MG PO DAILY, (Reported) Multivitamin 1 Each Capsule, 1 EACH PO DAILY, (Reported) [place]-3/Dha/Epa/Fish Oil 1 Each Capsule.dr, 1 EACH PO DAILY, (Reported) Ubidecarenone 75 Mg Capsule, 75 MG PO DAILY, (Reported) Patient Home Medication List Home Medication List Reviewed: Yes Review of Systems Review of Systems Constitutional: see HPI; No chills, No fever EENTM: No Symptoms Reported Respiratory: No Symptoms Reported Cardiovascular: No Symptoms Reported Gastrointestinal: See HPI, Abdominal Pain; Denies Constipated, Denies Diarrhea, Denies Nausea; Rectal Bleeding Genitourinary: No Symptoms Reported Musculoskeletal: no symptoms reported Skin: no symptoms reported Psychiatric/Neurological: No Symptoms Reported Endocrine: No Symptoms Reported Hematologic/Lymphatic: No Symptoms Reported Past Mbxckkl-Aagqwc-Zomhqy Hx Patient Social History Type Used: Pipe Former Smoker, Quit: Dec 11, 1977 Recent Foreign Travel: No Contact w/Someone Who Travel: No Recent Infectious Disease Expo: No Recent Hopitalizations: No Immunizations Up To Date Tetanus Booster (TDap): Unknown Date of Pneumonia Vaccine: Mar 29, 2016 Date of Influenza Vaccine: Jan 17, 2018 Seasonal Allergies Seasonal Allergies: Yes Past Medical History Surgeries: Yes (CYST REMOVED FROM BACK OF NECK) Tonsillectomy, Vasectomy Respiratory: No Cardiac: Yes (STENT PLACED) High Cholesterol, Hypertension, Irregular Heartbeat Neurological: Yes Neuropathy Reproductive Disorders: No Gastrointestinal: Yes Diverticulosis Musculoskeletal: Yes Arthritis Endocrine: Yes Diabetes, Non-Insulin dep Cataract Loss of Vision: Denies Hearing Impairment: Denies Cancer: Yes Skin Psychosocial: No Integumentary: Yes (SCALP LESION) Blood Disorders: No Physical Exam Vital Signs Vital Signs - First Documented 03/19/19 16:45 Temp 36.2 Pulse 67 Resp 17 B/P (MAP) 173/72 (105) Pulse Ox 97 O2 Delivery Room Air Capillary Refill : Less Than 3 Seconds Height/Weight/BMI Height: 5'8.00" Weight: 163lbs. 0.2oz. [age]yo; 25.00 BMI Method:Stated General Appearance: WD/WN, no apparent distress Respiratory: no respiratory distress, no accessory muscle use Cardiovascular: regular rate, rhythm, no murmur Gastrointestinal: normal bowel sounds, non tender, soft; No tenderness Extremities: normal range of motion, non-tender Neurologic/Psychiatric: alert, normal mood/affect, oriented x 3 Skin: normal color, warm/dry Procedures/Interventions Suture Size: 5-0 Progress/Results/Core Measures Results/Orders Lab Results Laboratory Tests Test 03/19/19 17:05 Range/Units White Blood Count 8.5 4.3-11.0 10^3/uL Red Blood Count 3.92 L 4.35-5.85 10^6/uL Hemoglobin 12.3 L 13.3-17.7 G/DL Hematocrit 37 L 40-54 % Mean Corpuscular Volume 94 80-99 FL Mean Corpuscular Hemoglobin 31 25-34 PG Mean Corpuscular Hemoglobin Concent 34 32-36 G/DL Red Cell Distribution Width 13.7 10.0-14.5 % Platelet Count 200 130-400 10^3/uL Mean Platelet Volume 11.2 H 7.4-10.4 FL Neutrophils (%) (Auto) 66 42-75 % Lymphocytes (%) (Auto) 20 12-44 % Monocytes (%) (Auto) 10 0-12 % Eosinophils (%) (Auto) 5 0-10 % Basophils (%) (Auto) 0 0-10 % Neutrophils # (Auto) 5.6 1.8-7.8 X 10^3 Lymphocytes # (Auto) 1.7 1.0-4.0 X 10^3 Monocytes # (Auto) 0.8 0.0-1.0 X 10^3 Eosinophils # (Auto) 0.4 H 0.0-0.3 10^3/uL Basophils # (Auto) 0.0 0.0-0.1 10^3/uL Prothrombin Time 13.5 12.2-14.7 SEC INR Comment 1.0 0.8-1.4 Sodium Level 135 135-145 MMOL/L Potassium Level 4.5 3.6-5.0 MMOL/L Chloride Level 101 98-107 MMOL/L Carbon Dioxide Level 18 L 21-32 MMOL/L Anion Gap 16 H 5-14 MMOL/L Blood Urea Nitrogen 13 7-18 MG/DL Creatinine 0.97 0.60-1.30 MG/DL Estimat Glomerular Filtration Rate > 60 BUN/Creatinine Ratio 13 Glucose Level 161 H 70-105 MG/DL Calcium Level 9.1 8.5-10.1 MG/DL Corrected Calcium 9.0 8.5-10.1 MG/DL Total Bilirubin 0.4 0.1-1.0 MG/DL Aspartate Amino Transf (AST/SGOT) 26 5-34 U/L Alanine Aminotransferase (ALT/SGPT) 16 0-55 U/L Alkaline Phosphatase 55 40-136 U/L Total Protein 7.4 6.4-8.2 GM/DL Albumin 4.1 3.2-4.5 GM/DL My Orders Orders - CARMEN GRIMM DIRECT SALES CONSULTANT Cbc With Automated Diff (03/19/19 16:49) Comprehensive Metabolic Panel (03/19/19 16:49) Ed Iv/Invasive Line Start (03/19/19 16:49) Ct Abdomen/Pelvis Wo (03/19/19 16:49) Red Cells Leukocytes Reduced (03/19/19 16:49) Protime With Inr (03/19/19 16:49) Type And Screen (03/19/19 16:49) Piperacillin Sodium/Tazobactam (Zosyn Vi (03/19/19 18:00) Medications Given in ED Current Medications Medications Dose Ordered Sig/Ameya Route Start Time Stop Time Status Last Admin Dose Admin Piperacillin Sod/ Tazobactam Sod 4.5 gm/Sodium Chloride 100 ml @ 200 mls/hr ONCE ONCE IV 03/19/19 18:00 03/19/19 18:29 03/19/19 18:12 200 MLS/HR Vital Signs/I&O 03/19/19 16:45 Temp 36.2 Pulse 67 Resp 17 B/P (MAP) 173/72 (105) Pulse Ox 97 O2 Delivery Room Air Blood Pressure Mean: 105 Diagnostic Imaging Diagonstic Imaging: CT Comments NAME: DAVID JACOBSON [facility] REC#: [id number] PT STATUS: REG ER : 06/03/1987 PHYSICIAN: CARMEN GRIMM APRN ADMIT DATE: 03/19/19/ER Draft Date of Exam:03/19/19 FOOT, RIGHT, 3 VIEW INDICATION: Kicking injury with pain, greatest at the 2nd toe. EXAMINATION: Three views of the right foot. FINDINGS: Hind and midfoot appear normal. The only abnormalities found at the level of the 2nd toe, where there is a fracture of what is believed to be the proximal portion of the middle phalanx. Its dislocation could not be excluded. Dedicated toe radiographs recommended. The distal phalanx appears unremarkable. The 2nd metatarsal unremarkable. The MTP normal. IMPRESSION: 2nd toe fracture and joint disorganization across the PIP with fracture involving the middle phalanx. The remaining portions of the hind, mid, forefoot and ankle appear otherwise unremarkable. Dictated on workstation # [id number] Dict: 03/19/191725 Trans: 03/19/191731 [facility] [id number] Interpreted by: ISABEL PALMER Electronically signed by: Departure Communication (Admissions) Time/Spoke to Admitting Phy: 18:[address] Mcrae, will admit, consult Dr. Santoro. Spoke with him as well, agrees to consult. Treating with Shakeel, recheck labs in the morning. Family Conversation 1821--begrudgingly, he has agreed to stay overnight for observation, recheck labs in the morning and vitals overnight. I'm not so much worried about the infection as I am the bleeding. He is only on aspirin however. 1800-I discussed with him the findings of mild diverticulitis on CT with essentially unremarkable labs. However he has been to the bathroom twice since he got here each of these times he's had a small amount of bleeding. I discussed with him that given the persistence of bleeding I would recommend admission to the hospital overnight for repeat labs in the morning and evaluation overnight. He states he'll think about it, he would prefer to go home however. Impression Primary Impression: Diverticulitis Additional Impression: Lower GI bleed Disposition: ADMITTED INPATIENT Condition: Stable Admissions Decision to Admit Reason: Admit from ER (General) Decision to Admit/Date: Mar 19, 2019 Time/Decision to Admit Time: 18:23 Departure-Patient Inst. Referrals: ANNA CABAN MD (PCP/Family) Primary Care Physician CARMEN GRIMM APRN Mar 19, 2019 16:55
[2019-03-19 17:13] LABS: BASOPHILS % (AUTO) 0 % (0-10); EOSINOPHILS # (AUTO) 0.4 10^3/uL (0.0-0.3); EOSINOPHILS % (AUTO) 5 % (0-10); HEMATOCRIT 37 % (40-54); HEMOGLOBIN 12.3 G/DL (13.3-17.7); LYMPHOCYTES # (AUTO) 1.7 X 10^3 (1.0-4.0); LYMPHOCYTES % (AUTO) 20 % (12-44); MEAN CORPUSCULAR HEMOGLOBIN 31 PG (25-34); MEAN CORPUSCULAR HGB CONC 34 G/DL (32-36); MEAN CORPUSCULAR VOLUME 94 FL (80-99); MEAN PLATELET VOLUME 11.2 FL (7.4-10.4); MONOCYTES # (AUTO) 0.8 X 10^3 (0.0-1.0); MONOCYTES % (AUTO) 10 % (0-12); NEUTROPHILS # (AUTO) 5.6 X 10^3 (1.8-7.8); NEUTROPHILS % (AUTO) 66 % (42-75); PLATELET COUNT 200 10^3/uL (130-400); RED CELL DISTRIBUTION WIDTH 13.7 % (10.0-14.5); WHITE BLOOD COUNT 8.5 10^3/uL (4.3-11.0)
[2019-03-19 17:24] LABS: PROTHROMBIN TIME PATIENT 13.5 SEC (12.2-14.7)
[2019-03-19 17:33] LABS: ALANINE AMINOTRANSFERASE 16 U/L (0-55); ALBUMIN 4.1 GM/DL (3.2-4.5); ALKALINE PHOSPHATASE 55 U/L (40-136); BILIRUBIN,TOTAL 0.4 MG/DL (0.1-1.0); BUN/CREATININE RATIO 13; CALCIUM 9.1 MG/DL (8.5-10.1); CARBON DIOXIDE 18 MMOL/L (21-32); CHLORIDE 101 MMOL/L (98-107); CREATININE SERUM 0.97 MG/DL (0.60-1.30); GFR ESTIMATED > 60; GLUCOSE 161 MG/DL (70-105); POTASSIUM 4.5 MMOL/L (3.6-5.0); SODIUM 135 MMOL/L (135-145); TOTAL PROTEIN 7.4 GM/DL (6.4-8.2)
--- NOTE | 2019-03-19 17:43 | Diagnostic Imaging Report ---
PROCEDURE: CT abdomen and pelvis without contrast. TECHNIQUE: Multiple contiguous axial images were obtained through the abdomen and pelvis without the use of intravenous contrast. Auto Exposure Controls were utilized during the CT exam to meet ALARA standards for radiation dose reduction. INDICATION: Rectal bleeding. FINDINGS: Consistent with a relatively mild focal sigmoid diverticulitis near the junction of the descending and sigmoid colon where there are multiple diverticuli and mild regional pericolonic edema and inflammatory change no extraluminal air or perforation. No abscess or bowel obstruction. Diverticular disease is seen scattered throughout the length of the colon but no other segmental inflammatory process. The air-containing appendix is visualized and normal. There is no bowel obstruction. There are diffuse atherosclerotic vascular calcifications without aneurysm. Kidneys are unobstructed. The remaining unopacified abdominopelvic solid and hollow viscera appear unremarkable. IMPRESSION: Findings most suggestive of mild acute proximal sigmoid diverticulitis without perforation, obstruction or abscess. Dictated by: Dictated on workstation # [id number]
[2019-03-19] MEDS ORDERED: PIPERACILLIN SODIUM/TAZOBACTAM 4.5 GM in NS (IVPB) 100 ML IV ONE (18:00)
--- NOTE | 2019-03-19 18:45 | NUR ---
Report called to [facility] @ 3995 for pt admission to #[id number].
--- NOTE | 2019-03-19 19:50 | NUR ---
KATALINAMAGUE admitted to room 410-1, with an admitting diagnosis of GI BLEED AND DIVERTICULITIS, on 03/19/19 from ED via , accompanied by ED STAFF AND . MAGUE DARDEN introduced to surroundings, call light, bed controls, phone, TV, temperature control, lights, meal times, smoking policy, visitor policy, side rail policy, bathrooms and showers. Patient Rights given to patient in the handbook. MAGUE DARDEN verbalizes understanding that [facility] is not responsible for the loss or damage to any personal effects or valuables that are kept in the patients posession during their hospitalization. MAGUE DARDEN verbalizes understanding of Interdisciplinary Patient Education. Patient and/or family were informed about the Rapid Response Team and its purpose.
[2019-03-19 19:54] VITALS: BP 137/68
[2019-03-19 23:24] VITALS: BP 102/64
[2019-03-19] MEDS ORDERED: NS (IVPB) 100 ML ONE (23:38)
[2019-03-19] MEDS ORDERED: PIPERACILLIN/TAZO 4.5 GM VIAL (ZOSYN) IV ONE (23:38)
[2019-03-20] VITALS (8 sets, daily range): BP systolic 104–154; BP diastolic 59–77
[2019-03-20] MEDS ORDERED: AMLO10TA7 PO (00:30)
[2019-03-20] MEDS ORDERED: METF-399 PO (00:30)
[2019-03-20] MEDS ORDERED: ROSU5TAB13 PO (00:30)
[2019-03-20] MEDS ORDERED: UBID100C7 PO (04:00)
[2019-03-20] MEDS ORDERED: MULT1CAP21 PO (04:03)
[2019-03-20 05:57] LABS: BASOPHILS % (AUTO) 0 % (0-10); EOSINOPHILS # (AUTO) 0.2 10^3/uL (0.0-0.3); EOSINOPHILS % (AUTO) 3 % (0-10); HEMATOCRIT 27 % (40-54); LYMPHOCYTES # (AUTO) 1.3 X 10^3 (1.0-4.0); LYMPHOCYTES % (AUTO) 20 % (12-44); MEAN CORPUSCULAR HEMOGLOBIN 31 PG (25-34); MEAN CORPUSCULAR HGB CONC 33 G/DL (32-36); MEAN CORPUSCULAR VOLUME 94 FL (80-99); MEAN PLATELET VOLUME 11.4 FL (7.4-10.4); MONOCYTES # (AUTO) 0.7 X 10^3 (0.0-1.0); MONOCYTES % (AUTO) 12 % (0-12); NEUTROPHILS # (AUTO) 4.1 X 10^3 (1.8-7.8); NEUTROPHILS % (AUTO) 65 % (42-75); PLATELET COUNT 153 10^3/uL (130-400); RED CELL DISTRIBUTION WIDTH 13.4 % (10.0-14.5); WHITE BLOOD COUNT 6.3 10^3/uL (4.3-11.0)
[2019-03-20 06:21] LABS: ALANINE AMINOTRANSFERASE 12 U/L (0-55); ALBUMIN 3.2 GM/DL (3.2-4.5); ALKALINE PHOSPHATASE 37 U/L (40-136); BILIRUBIN,TOTAL 0.5 MG/DL (0.1-1.0); BUN/CREATININE RATIO 15; CALCIUM 8.4 MG/DL (8.5-10.1); CARBON DIOXIDE 22 MMOL/L (21-32); CHLORIDE 105 MMOL/L (98-107); CREATININE SERUM 0.98 MG/DL (0.60-1.30); GFR ESTIMATED > 60; GLUCOSE 135 MG/DL (70-105); POTASSIUM 3.9 MMOL/L (3.6-5.0); SODIUM 138 MMOL/L (135-145); TOTAL PROTEIN 5.3 GM/DL (6.4-8.2)
[2019-03-20] MEDS: PIPERACILLIN/TAZO 4.5 GM/NS 100 ML IV SCH ×6 (08:23→16:41)
[2019-03-20] MEDS ORDERED: BETA15CR37 TOP (09:14)
[2019-03-20] MEDS ORDERED: CARV12.53 PO (09:14)
[2019-03-20] MEDS ORDERED: ASPI-983 PO (09:14)
[2019-03-20] MEDS ORDERED: OMEP40CA36 PO (09:14)
[2019-03-20] MEDS ORDERED: LISI-552 PO (09:14)
--- NOTE | 2019-03-20 09:15 | NUR ---
WENT OVER THE EXT MED HX WITH THE PATIENT AND HE VERIFIED HOW HE TAKES HIS MEDICATIONS. HE TAKES THE FOLLOWING OTC: CO Q 10 DAILY FISH OIL DAILY MTV DAILY URINOZINC 2 DAILY ASPIRIN 81MG DAILY
--- NOTE | 2019-03-20 12:45 | NUR ---
BRIGHT RED LIQUID NOTED IN STOOL. CLEAR LIQUID TRAY SERVED FOR LUNCH CONTAINED RED JELL-O AND A RED POPSICLE.
--- NOTE | 2019-03-20 13:05 | NUR ---
CALLED THE KITCH[facility] TO REQUEST NO RED OR PURPLE FOODS TO BE SENT ON HIS CLEAR LIQUID TRAY.
[2019-03-20] MEDS ORDERED: ACETAMINOPHEN 325 MG TABLET PO PRN (13:30)
--- NOTE | 2019-03-20 14:18 | NUR ---
PATIENT REPORTS FEELING FAINT AFTER HAVING A BLOODY BM. VITALS TAKEN AND CHARTED BLOOD SUGAR TAKEN (220). DR ANDRES NOTIFIED. HEMOGLOBIN ORDERED.
[2019-03-20 14:33] LABS: HEMOGLOBIN 8.7 G/DL (13.3-17.7)
--- NOTE | 2019-03-20 14:57 | NUR ---
PATIENT REPORTS THAT HE FEELS THOUGH HE HAS TO BREATH REALLY DEEP SOMETIMES. VITALS STABLE, O2 SAT 96% ON ROOM AIR, RESP. 20 BPM. WHEN ASKED, PATIENT ADMITS TO FEELING ANXIOUS AT TIMES.
[2019-03-20] MEDS ORDERED: ONDANSETRON 4 MG (ZOFRAN) ORAL DISSOLVE TAB PO PRN (15:00)
[2019-03-20] MEDS ORDERED: POLYETHYLENE GLYCOL 17 GM (MIRALAX) PACK PO PRN (15:00)
[2019-03-20] MEDS ORDERED: ONDANSETRON 4 MG/2 ML (SDV) Z0FRAN IV PRN (15:00)
--- NOTE | 2019-03-20 15:08 | History & Physical-Hospitalist ---
History of Present Illness HPI/Chief Complaint Antolin Reyes is an 88-year-old male with past medical history of hypertension, hyperlipidemia, type II diabetes mellitus, who presented with bright red blood per rectum. He reports having several bloody bowel movements prior to coming to the emergency room. He also reports some abdominal pain which is now resolved. He denies any fevers or chills. He denies any lightheadedness or dizziness. He denies any chest pain or shortness of breath. He reports that he has not had any bloody bowel movements since yesterday evening. He reports having a bowel movement this morning that was nonbloody. Source: patient Exam Limitations: no limitations Date Seen 03/20/19 Time Seen by a Provider: 09:00 Attending Physician Maria Antonia Mcrae John D MD Referring Physician Date of Admission Mar 19, 2019 at 18:19 Home Medications & Allergies Home Medications Reviewed patient Home Medication Reconciliation performed by pharmacy medication reconciliations biodiesel production technician and/or nursing. Patients Allergies have been reviewed. Allergies Allergies Coded Allergies No Known Drug Allergies (Unverified03/29/12) Past Religln-Hvmtkh-Pvdzdk Hx Past Med/Social Hx: Reviewed Nursing Past Med/Soc Hx Patient Social History Alcohol Use: Denies Use Recreational Drug Use: No Smoking Status: Never a Smoker Former Smoker, Quit: Dec 11, 1977 Type Used: Pipe Recent Foreign Travel: No Contact w/other who traveled: No Recent Hopitalizations: No Recent Infectious Disease Expo: No Immunizations Up To Date Tetanus Booster (TDap): Unknown Date of Pneumonia Vaccine: Mar 29, 2016 Date of Influenza Vaccine: Jan 08, 2019 Seasonal Allergies Seasonal Allergies: Yes Past Medical History Surgeries: Tonsillectomy, Vasectomy Cardiac: High Cholesterol, Hypertension, Irregular Heartbeat Neurological: Neuropathy Reproductive: No Gastrointestinal: Diverticulosis Musculoskeletal: Arthritis Endocrine: Diabetes, Non-Insulin dep HEENT: Cataract Loss of Vision: Denies Hearing Impairment: Denies Cancer: Skin History of Blood Disorders: No Review of Systems Constitutional: no symptoms reported EENTM: no symptoms reported Respiratory: no symptoms reported Cardiovascular: no symptoms reported Gastrointestinal: abdominal pain, other (Hematochezia) Genitourinary: no symptoms reported Musculoskeletal: no symptoms reported Skin: no symptoms reported Psychiatric/Neurological: No Symptoms Reported Physical Exam Physical Exam Vital Signs Vital Signs - First Documented 03/19/19 16:45 Temp 36.2 Pulse 67 Resp 17 B/P (MAP) 173/72 (105) Pulse Ox 97 O2 Delivery Room Air Capillary Refill : Less Than 3 Seconds Height, Weight, BMI Height: 5'8.00" Weight: 163lbs. 0.0oz. 73.741309kl; 23.63 BMI Method:Stated General Appearance: No Apparent Distress, WD/WN HEENT: PERRL/EOMI, Pharynx Normal Neck: Normal Inspection, Supple Respiratory: Lungs Clear, Normal Breath Sounds, No Respiratory Distress Cardiovascular: Regular Rate, Rhythm, No Edema, No Murmur Gastrointestinal: No Organomegaly, Non Tender, Soft Extremity: Normal Capillary Refill, Normal Inspection, Non Tender, No Pedal Edema Neurologic/Psychiatric: Alert, Oriented x3, No Motor/Sensory Deficits, Normal Mood/Affect Skin: Normal Color, Warm/Dry Lymphatic: No Adenopathy Results Results/Procedures Labs Laboratory Tests 03/19/19 17:05 03/20/19 05:01 03/20/19 14:23 Patient resulted labs reviewed. Imaging: Reviewed Imaging Report Assessment/Plan Admission Diagnosis Acute lower GI bleeding Admission Status: Inpatient Order (span 2 midnights) Reason for Inpatient Admission: Acute GI bleeding requiring further surgical evaluation Assessment and Plan Acute lower GI bleeding Likely diverticular bleed Diverticulitis Acute blood loss anemia Hemoglobin 12.7 on admission, trended down to [address] abdomen revealed a sigmoid diverticulitis Monitor on telemetry Consult surgery Continue to monitor H&H Clear liquid diet, nothing by mouth at midnight Hypertension Continue Coreg Hold lisinopril, amlodipine, and hydrochlorothiazide IV Hydralazine as needed for systolics greater than 200 Type II diabetes mellitus Hold metformin Sliding scale insulin Hyperlipidemia Continue statin DVT prophylaxis: Holding pharmacologic prophylaxis due to her active major bleeding Diagnosis/Problems Diagnosis/Problems (1) Diverticulitis of colon with bleeding Status: Acute Clinical Quality Measures DVT/VTE Risk/Contraindication: Risk Factor Score Per Nursin RFS Level Per Nursing on Admit: 2=Moderate PAWAN ANDRES MD Mar 20, 2019 15:08
--- NOTE | 2019-03-20 15:12 | Consultation - Surgery ---
History of Present Illness History of Present Illness Patient Consulted On(nya/time) 03/20/19 10:06 Date Seen by Provider: Mar 20, 2019 Time Seen by Provider: 10:06 History of Present Illness consult requested by Dr. Mcrae for gi bleed/diverticulitis Patient is an 88 year old male that began having bright red blood per rectum starting yesterday. He had several and was concerned so went to emergency dept for further evaluation. He was also experiencing pain in the left side of abdomen. Aching pain that has now gone away. Nothing that he knew of made it go away. Nothing really made it worse. He rated the pain about 4/10. Today he has not had any further bleeding. He denies any nausea or vomiting. Denies fever sweats chills shortness of breath or chest pain. Patient had a ct scan consistent with proximal sigmoid diverticulitis. Allergies and Home Medications Allergies Coded Allergies: No Known Drug Allergies (Unverified , 03/29/12) Home Medications Amlodipine Besylate 10 Mg Tablet, 10 MG PO DAILY, (Reported) Aspirin 81 Mg Tablet.dr, 81 MG PO DAILY, (Reported) Betamethasone/Propylene Glyc 15 Gm Cream..g., TOP MoWeFr, (Reported) Carvedilol 12.5 Mg Tablet, 12.5 MG PO BID, (Reported) Hydrochlorothiazide 12.5 Mg Capsule, 12.5 MG PO DAILY, (Reported) Lisinopril 20 Mg Tablet, 20 MG PO DAILY, (Reported) Metformin HCl 1,000 Mg Tablet, 1,000 MG PO BID, (Reported) Multivit-Min/Hrb Cb121 1 Each Capsule, 2 CAP PO DAILY, (Reported) Multivitamin 1 Each Capsule, 1 CAP PO DAILY, (Reported) [place]-3/Dha/Epa/Fish Oil 1 Each Capsule.dr, 1,200 MG PO DAILY, (Reported) Omeprazole 40 Mg Capsule.dr, 40 MG PO DAILY, (Reported) Rosuvastatin Calcium 5 Mg Tablet, 5 MG PO DAILY, (Reported) Ubidecarenone 100 Mg Capsule, 100 MG PO DAILY, (Reported) Patient Home Medication List Home Medication List Reviewed: Yes Past Jcijvgw-Pwmsjg-Oljgny Hx Patient Social History Alcohol Use: Denies Use Recreational Drug Use: No Smoking Status: Never a Smoker Former Smoker, Quit: Dec 11, 1977 Type Used: Pipe Recent Foreign Travel: No Contact w/Someone Who Travel: No Recent Infectious Disease Expo: No Recent Hopitalizations: No Immunizations Up To Date Tetanus Booster (TDap): Unknown Date of Pneumonia Vaccine: Mar 29, 2016 Date of Influenza Vaccine: Jan 08, 2019 Seasonal Allergies Seasonal Allergies: Yes Surgeries History of Surgeries: Yes (CYST REMOVED FROM BACK OF NECK) Surgeries: Tonsillectomy, Vasectomy Respiratory History of Respiratory Disorde: No Cardiovascular History of Cardiac Disorders: Yes (STENT PLACED) Cardiac Disorders: High Cholesterol, Hypertension, Irregular Heartbeat Neurological History of Neurological Disord: Yes Neurological Disorders: Neuropathy Reproductive System Hx Reproductive Disorders: No Gastrointestinal History of Gastrointestinal Di: Yes Gastrointestinal Disorders: Diverticulosis Musculoskeletal History of Musculoskeletal Dis: Yes Musculoskeletal Disorders: Arthritis Endocrine History of Endocrine Disorders: Yes Endocrine Disorders: Diabetes, Non-Insulin dep HEENT HEENT Disorders: Cataract Loss of Vision: Denies Hearing Impairment: Denies Cancer History of Cancer: Yes Cancer: Skin Psychosocial History of Psychiatric Problem: No Integumentary History of Skin or Integumenta: Yes (SCALP LESION) Blood Transfusions History of Blood Disorders: No Reviewed Nursing Assessment Reviewed/Agree w Nursing PMH: Yes Family Medical History Significant Family History: No Pertinent Family Hx Review of Systems-General Constitutional: no symptoms reported EENTM: no symptoms reported Respiratory: no symptoms reported Cardiovascular: no symptoms reported Gastrointestinal: see HPI Genitourinary: no symptoms reported Musculoskeletal: no symptoms reported Skin: no symptoms reported Psychiatric/Neurological: No Symptoms Reported Physical Exam-General Problems Physical Exam Vital Signs Vital Signs - First Documented 03/19/19 16:45 Temp 36.2 Pulse 67 Resp 17 B/P (MAP) 173/72 (105) Pulse Ox 97 O2 Delivery Room Air Capillary Refill : Less Than 3 Seconds General Appearance: WD/WN, no apparent distress HEENT: PERRL/EOMI Neck: non-tender, full range of motion, supple Respiratory: chest non-tender, no respiratory distress, no accessory muscle use Cardiovascular: regular rate, rhythm Gastrointestinal: soft, no organomegaly, tenderness (minimal left side) Rectal: deferred Back: no CVA tenderness Extremities: normal range of motion, non-tender 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, no motor/sensory deficits, alert, normal mood/affect, oriented x 3 Skin: normal color, warm/dry Lymphatic: no adenopathy Data Review Labs Laboratory Tests 03/19/19 17:05: White Blood Count 8.5, Red Blood Count 3.92L, Hemoglobin 12.3L, Hematocrit 37L, Mean Corpuscular Volume 94, Mean Corpuscular Hemoglobin 31, Mean Corpuscular Hemoglobin Concent 34, Red Cell Distribution Width 13.7, Platelet Count 200, Mean Platelet Volume 11.2H, Neutrophils (%) (Auto) 66, Lymphocytes (%) (Auto) 20, Monocytes (%) (Auto) 10, Eosinophils (%) (Auto) 5, Basophils (%) (Auto) 0, Neutrophils # (Auto) 5.6, Lymphocytes # (Auto) 1.7, Monocytes # (Auto) 0.8, Eosinophils # (Auto) 0.4H, Basophils # (Auto) 0.0, Prothrombin Time 13.5, INR Comment 1.0, Sodium Level 135, Potassium Level 4.5, Chloride Level 101, Carbon Dioxide Level 18L, Anion Gap 16H, Blood Urea Nitrogen 13, Creatinine 0.97, Estimat Glomerular Filtration Rate > 60, BUN/Creatinine Ratio 13, Glucose Level 161H, Calcium Level 9.1, Corrected Calcium 9.0, Total Bilirubin 0.4, Aspartate Amino Transf (AST/SGOT) 26, Alanine Aminotransferase (ALT/SGPT) 16, Alkaline Phosphatase 55, Total Protein 7.4, Albumin 4.1 03/19/19 20:51: Glucometer 224H 03/20/19 05:01: White Blood Count 6.3, Red Blood Count 2.86L, Hemoglobin 9.0#L, Hematocrit 27L, Mean Corpuscular Volume 94, Mean Corpuscular Hemoglobin 31, Mean Corpuscular Hemoglobin Concent 33, Red Cell Distribution Width 13.4, Platelet Count 153, Mean Platelet Volume 11.4H, Neutrophils (%) (Auto) 65, Lymphocytes (%) (Auto) 20, Monocytes (%) (Auto) 12, Eosinophils (%) (Auto) 3, Basophils (%) (Auto) 0, N eutrophils # (Auto) 4.1, Lymphocytes # (Auto) 1.3, Monocytes # (Auto) 0.7, Eosinophils # (Auto) 0.2, Basophils # (Auto) 0.0, Sodium Level 138, Potassium Level 3.9, Chloride Level 105, Carbon Dioxide Level 22, Anion Gap 11, Blood Urea Nitrogen 15, Creatinine 0.98, Estimat Glomerular Filtration Rate > 60, BUN/Creatinine Ratio 15, Glucose Level 135H, Calcium Level 8.4L, Corrected Calcium 9.0, Total Bilirubin 0.5, Aspartate Amino Transf (AST/SGOT) 13, Alanine Aminotransferase (ALT/SGPT) 12, Alkaline Phosphatase 37L, Total Protein 5.3L, Albumin 3.2 03/20/19 14:14: Glucometer 220H 03/20/19 14:23: Hemoglobin 8.7L, Hematocrit 26L Assessment/Plan Assessment/Plan Assessment/Plan lower gi bleed diverticulitis anemia secondary to GI bleed patient npo, no longer having bleeding. conservative measures at this time, on zosyn, npo will start clears transfuse prbc as needed follow hgb will need colonoscopy outpatient. Clinical Quality Measures DVT/VTE Risk/Contraindication: Risk Factor Score Per Nursin RFS Level Per Nursing on Admit: 2=Moderate JANICE SANCHEZ DO Mar 20, 2019 15:11
[2019-03-20] MEDS ORDERED: CATHETER FLUSH 10 ML SYR IV PRN (15:15)
[2019-03-20] MEDS: LACTATED RINGERS 1,000 ML IV SCH (15:18)
--- NOTE | 2019-03-20 16:07 | NUR ---
PATIENT NOTIFIED THAT HIS WILL NEED TO BRING COQ10 MEDICATION FROM HOME. PATIENT STATED THAT HE WILL CALL HER.
[2019-03-20] MEDS: inSUlin ASPART (NovoLOG) 1 UNIT/0.01 ML (CHARGE PER UNIT) SC SCH ×2 (16:33→21:22)
[2019-03-20] MEDS ORDERED: PATIENT MAY USE OWN MEDS, ALL MC SCH (17:00)
[2019-03-20] MEDS ORDERED: inSUlin ASPART (NovoLOG) 1 UNIT/0.01 ML (CHARGE PER UNIT) SC SCH (19:30)
[2019-03-20] MEDS: CARVEDILOL 12.5 MG (COREG) TABLET PO SCH (21:35)
[2019-03-21] VITALS (11 sets, daily range): BP systolic 118–155; BP diastolic 61–80
[2019-03-21] MEDS: PIPERACILLIN/TAZO 4.5 GM/NS 100 ML IV SCH ×8 (00:30→23:55)
[2019-03-21] MEDS: LACTATED RINGERS 1,000 ML IV SCH ×3 (01:24→21:11)
[2019-03-21 05:18] LABS: MEAN PLATELET VOLUME 10.9 FL (7.4-10.4); RED CELL DISTRIBUTION WIDTH 13.6 % (10.0-14.5); WHITE BLOOD COUNT 6.8 10^3/uL (4.3-11.0)
[2019-03-21] MEDS: inSUlin ASPART (NovoLOG) 1 UNIT/0.01 ML (CHARGE PER UNIT) SC SCH ×4 (05:20→21:11)
[2019-03-21 06:05] LABS: HEMOGLOBIN 6.5 G/DL (13.3-17.7)
[2019-03-21] MEDS ORDERED: NS IV 500 ML 500 ML IV SCH (06:30)
[2019-03-21 06:42] LABS: BUN/CREATININE RATIO 12; CALCIUM 7.9 MG/DL (8.5-10.1); CARBON DIOXIDE 22 MMOL/L (21-32); CHLORIDE 106 MMOL/L (98-107); CREATININE SERUM 0.86 MG/DL (0.60-1.30); GFR ESTIMATED > 60; GLUCOSE 138 MG/DL (70-105); SODIUM 138 MMOL/L (135-145)
--- NOTE | 2019-03-21 06:53 | NUR ---
dr. phelps ordered to transfuse blood to pt, pt is requesting to speak with dr. phelps himself before signing the consent & agreeing to the blood transfusion. dr. phelps notified of this patient's concerns
--- NOTE | 2019-03-21 07:05 | NUR ---
pt called this rn to the room to inform me that he has spoke with his & is agreeing to proceed with the blood transfusion. dr. phelps notified.
--- NOTE | 2019-03-21 08:09 | NUR ---
TAKEN DOWN FOR STRESS TEST Addendum: 03/21/19 at 0993 by ERNST CLEVELAND RN ran corona
[2019-03-21] MEDS ORDERED: NON-FORMULARY MEDICATION 1 EA EA (Omeprazole 40 MG) PO SCH (09:00)
[2019-03-21] MEDS: CARVEDILOL 12.5 MG (COREG) TABLET PO SCH ×2 (12:38→20:30)
[2019-03-21] MEDS: PANTOPRAZOLE 40 MG (PROTONIX) TAB PO SCH (12:38)
[2019-03-21] MEDS: ROSUVASTATIN 5 MG (CRESTOR) TABLET PO SCH (12:38)
--- NOTE | 2019-03-21 13:12 | Progress Note - Surgery ---
Subjective Date Seen by a Provider: Mar 21, 2019 Time Seen by a Provider: 13:09 Subjective/Events-last exam Patient no abdominal pain. Some bright red blood this morning. Drop in hgb. Denies n/v fever sweats chills shortness of breath or chest pain. Being transfused 2 units PRBC. Objective Exam Vital Signs Date Time Temp Pulse Resp B/P (MAP) Pulse Ox O2 Delivery O2 Flow Rate FiO2 03/21/19 12:46 36.4 52 20 152/65 Room Air 03/21/19 12:31 36.4 63 18 144/72 97 Room Air 03/21/19 12:08 36.3 60 18 155/72 (99) 97 Room Air 03/21/19 11:49 36.4 63 18 144/72 97 Room Air 03/21/19 09:46 36.4 62 20 152/79 Room Air 03/21/19 09:29 36.4 61 18 149/80 97 Room Air 03/21/19 08:01 Room Air 03/21/19 07:50 36.4 61 18 149/80 (103) 97 Room Air 03/21/19 03:34 36.2 57 20 118/61 (80) 95 Room Air 03/20/19 23:44 36.1 62 18 132/59 (83) 95 Room Air 03/20/19 21:35 58 110/60 (77) 03/20/19 21:20 Room Air 03/20/19 19:43 35.8 74 22 104/62 (76) 98 Room Air 03/20/19 19:00 85 03/20/19 16:03 35.8 77 18 127/71 (89) 95 Room Air 03/20/19 14:19 35.8 70 18 154/77 (102) 97 Room Air I & O 03/21/19 07:00 Intake Total 2840 ml Balance 2840 ml Capillary Refill : Less Than 3 Seconds General Appearance: No Apparent Distress, WD/WN HEENT: PERRL/EOMI, Pharynx Normal Neck: Normal Inspection, Supple Respiratory: Lungs Clear, Normal Breath Sounds, No Respiratory Distress Cardiovascular: Regular Rate, Rhythm, No Edema, No Murmur Gastrointestinal: non tender, soft, no organomegaly Extremity: Normal Capillary Refill, Normal Inspection, Non Tender, No Pedal Edema Neurologic/Psychiatric: Alert, Oriented x3, No Motor/Sensory Deficits, Normal Mood/Affect Skin: Normal Color, Warm/Dry Lymphatic: No Adenopathy Results Lab Laboratory Tests 03/20/19 14:14: Glucometer 220H 03/20/19 14:23: Hemoglobin 8.7L, Hematocrit 26L 03/20/19 16:11: Glucometer 194H 03/20/19 20:37: Glucometer 217H 03/21/19 04:35: Sodium Level 138, Potassium Level 4.0, Chloride Level 106, Carbon Dioxide Level 22, Anion Gap 10, Blood Urea Nitrogen 10, Creatinine 0.86, Estimat Glomerular Filtration Rate > 60, BUN/Creatinine Ratio 12, Glucose Level 138H, Calcium Level 7.9L 03/21/19 04:55: White Blood Count 6.8, Red Blood Count 2.08L, Hemoglobin 6.5#*L, Hematocrit 20*L , Mean Corpuscular Volume 95, Mean Corpuscular Hemoglobin 31, Mean Corpuscular Hemoglobin Concent 33, Red Cell Distribution Width 13.6, Platelet Count 131, Mean Platelet Volume 10.9H 03/21/19 05:13: Glucometer 152H 03/21/19 11:09: Glucometer 183H Assessment/Plan Assessment/Plan Assessment/Plan lower gi bleed diverticulitis anemia secondary to GI bleed on clears conservative measures at this time, on zosyn, transfuse prbc as needed follow hgb will need colonoscopy outpatient once diverticulitis resolves. Clinical Quality Measures DVT/VTE Risk/Contraindication: Risk Factor Score Per Nursin RFS Level Per Nursing on Admit: 2=Moderate JANICE SANCHEZ DO Mar 21, 2019 13:11
--- NOTE | 2019-03-21 13:40 | Progress Note - Hospitalist ---
Subjective HPI/CC On Admission Date Seen by Provider: Mar 21, 2019 Time Seen by Provider: 09:00 Antolin Reyes is an 88-year-old male with past medical history of hypertension, hyperlipidemia, type II diabetes mellitus, who presented with bright red blood per rectum. He reports having several bloody bowel movements prior to coming to the emergency room. He also reports some abdominal pain which is now resolved. He denies any fevers or chills. He denies any lightheadedness or dizziness. He denies any chest pain or shortness of breath. He reports that he has not had any bloody bowel movements since yesterday evening. He reports having a bowel movement this morning that was nonbloody. Subjective/Events-last exam He reports having more bright red blood per rectum yesterday afternoon. He says his last bowel movement was at that time. He denies any lightheadedness or dizziness. He denies any chest pain or shortness of breath. He denies any abdominal pain, nausea, or vomiting. Objective Exam Vital Signs Vital Signs Date Time Temp Pulse Resp B/P (MAP) Pulse Ox O2 Delivery O2 Flow Rate FiO2 03/21/19 12:46 36.4 52 20 152/65 Room Air 03/21/19 12:31 97 Capillary Refill : Less Than 3 Seconds General Appearance: No Apparent Distress, WD/WN HEENT: PERRL/EOMI, Pharynx Normal Neck: Normal Inspection, Supple Respiratory: Lungs Clear, Normal Breath Sounds, No Respiratory Distress Cardiovascular: Regular Rate, Rhythm, No Edema, No Murmur Gastrointestinal: Normal Bowel Sounds, Non Tender, Soft Extremity: Normal Inspection, Non Tender, No Pedal Edema Neurologic/Psychiatric: Alert, Oriented x3, No Motor/Sensory Deficits, Normal Mood/Affect Skin: Normal Color, Warm/Dry Lymphatic: No Adenopathy Results/Procedures Lab Laboratory Tests 03/20/19 14:23 03/21/19 04:35 03/21/19 04:55 Patient resulted labs reviewed. Imaging: Reviewed Imaging Report Assessment/Plan Assessment and Plan Assess & Plan/Chief Complaint Acute lower GI bleeding Likely diverticular bleed Diverticulitis Acute blood loss anemia Hemoglobin 12.7 on admission, trended down to 6.5 this morning Transfuse 2 units PRBC this morning and repeat H&H afterward CT abdomen revealed sigmoid diverticulitis Continue Zosyn Surgery following Continue clear liquid diet Hypertension Continue Coreg Hold lisinopril, amlodipine, and hydrochlorothiazide IV Hydralazine as needed for systolics greater than 200 Type II diabetes mellitus Hold metformin Sliding scale insulin Hyperlipidemia Continue statin DVT prophylaxis: Holding pharmacologic prophylaxis due to her active major bleeding Diagnosis/Problems Diagnosis/Problems (1) Diverticulitis of colon with bleeding Status: Acute Clinical Quality Measures DVT/VTE Risk/Contraindication: Risk Factor Score Per Nursin RFS Level Per Nursing on Admit: 2=Moderate PAWAN ANDRES MD Mar 21, 2019 13:40
[2019-03-21] MEDS ORDERED: lisINopril 40 MG (PRINIVIL) TABLET PO NR (13:45)
[2019-03-21 17:10] LABS: HEMOGLOBIN 9.5 G/DL (13.3-17.7)
[2019-03-22 00:44] VITALS: BP 113/64
[2019-03-22 04:48] VITALS: BP 136/68
[2019-03-22 05:36] LABS: HEMOGLOBIN 8.9 G/DL (13.3-17.7)
[2019-03-22] MEDS: inSUlin ASPART (NovoLOG) 1 UNIT/0.01 ML (CHARGE PER UNIT) SC SCH ×2 (06:13→11:51)
[2019-03-22 08:08] VITALS: BP 166/72
[2019-03-22] MEDS: CARVEDILOL 12.5 MG (COREG) TABLET PO SCH (08:19)
[2019-03-22] MEDS: PIPERACILLIN/TAZO 4.5 GM/NS 100 ML IV SCH ×2 (08:19)
[2019-03-22] MEDS: PANTOPRAZOLE 40 MG (PROTONIX) TAB PO SCH (08:19)
[2019-03-22] MEDS: ROSUVASTATIN 5 MG (CRESTOR) TABLET PO SCH (08:29)
[2019-03-22] MEDS ORDERED: lisINopril 20 MG (PRINIVIL) TABLET PO SCH (09:00)
--- NOTE | 2019-03-22 09:00 | NUR ---
UNDER TRANSFUSIONS STATED BLOOD WAS READY. NO ORDER FOUND THAT WAS PLACED FOR PT TO HAVE TRANSFUSION THIS AM. CLARIFIED THIS WITH DR ANDRES WHO STATED HE DID NOT ORDER ONE.
[2019-03-22] MEDS ORDERED: METR500T PO ×2 (10:21→14:31)
[2019-03-22] MEDS ORDERED: CIPR-225 PO ×2 (10:21→14:31)
[2019-03-22 13:00] VITALS: BP 150/70
--- NOTE | 2019-03-22 13:44 | Discharge Summary ---
Discharge Summary Hospital Course Was the Problem List Reviewed?: Yes Problems/Dx: (1) Diverticulitis of colon with bleeding Status: Acute Hospital Course Date of Admission: Mar 20, 2019 at 15:08 Admission Diagnosis : diverticulitis with diverticular bleeding Family Physician/Provider: Roger Huang MD Date of Discharge: 03/22/19 Discharge Diagnosis: diverticulitis with diverticular bleeding Hospital Course: Antolin Reyes is an 88-year-old male who presented with bright red blood per rectum. Further evaluation revealed a sigmoid diverticulitis. He was started on Zosyn for antibiotics while in the hospital. His transition to Cipro and Flagyl on discharge. His diverticular bleed resulted in a significant drop in his hemoglobin from 12.7 on arrival down to 6.5. He required 2 units PRBCs to be transfused during his hospital stay. On discharge his hemoglobin remained stable at 8.9 and his bleeding had resolved. Surgery plans to do a colonoscopy as an outpatient. He should follow-up with Dr. Huang in about a week. He should get a repeat hemoglobin check on Sunday. Labs and Pending Lab Test: Laboratory Tests 03/21/19 15:42: Glucometer 183H 03/21/19 16:59: Hemoglobin 9.5#L, Hematocrit 28L 03/21/19 20:42: Glucometer 161H 03/22/19 04:55: Hemoglobin 8.9L, Hematocrit 26L 03/22/19 06:11: Glucometer 145H 03/22/19 11:10: Glucometer 171H Home Meds Active Flagyl (Metronidazole) 500 Mg Tablet 500 Mg PO TID 4 Days Cipro (Ciprofloxacin HCl) 500 Mg Tablet 500 Mg PO BID 4 Days Reported Lisinopril 20 Mg Tablet 20 Mg PO DAILY Omeprazole 40 Mg Capsule. 40 Mg PO DAILY Betamethasone Dp Aug 0.05% Crm (Betamethasone/Propylene Glyc) 15 Gm Cream..g. TOP MOWEFR Carvedilol 12.5 Mg Tablet 12.5 Mg PO BID Aspirin EC (Aspirin) 81 Mg Tablet. 81 Mg PO DAILY Urinozinc Prostate Formula Cap (Multivit-Min/Hrb Cb121) 1 Each Capsule 2 Cap PO DAILY Co Q10 (Ubidecarenone) 100 Mg Capsule 100 Mg PO DAILY Rosuvastatin Calcium 5 Mg Tablet 5 Mg PO DAILY Metformin HCl 1,000 Mg Tablet 1,000 Mg PO BID Amlodipine Besylate 10 Mg Tablet 10 Mg PO DAILY Fish Oil EC 1,200 mg Softgel ([place]-3/Dha/Epa/Fish Oil) 1 Each Capsule. 1,200 Mg PO DAILY Multivitamins (Multivitamin) 1 Each Capsule 1 Cap PO DAILY Hydrochlorothiazide 12.5 Mg Capsule 12.5 Mg PO DAILY Assessment/Pt Instructions Take medications as prescribed. Get lab work done on Sunday to follow-up in her hemoglobin. Follow up with Dr. Huang in about a week. Follow up with surgery for a colonoscopy. Discharge Planning: <30 minutes discharge planning Discharge Instructions Discharge Diet: No Restrictions Activity as Tolerated: Yes Consultations surgery Discharge Physical Examination Vital Signs Vital Signs Date Time Temp Pulse Resp B/P (MAP) Pulse Ox O2 Delivery O2 Flow Rate FiO2 03/22/19 08:40 97 Room Air 03/22/19 08:08 36.5 64 18 166/72 (103) General Appearance: No Apparent Distress, WD/WN HEENT: PERRL/EOMI, Pharynx Normal Respiratory: Lungs Clear, Normal Breath Sounds, No Respiratory Distress Cardiovascular: Regular Rate, Rhythm, No Edema, No Murmur Gastrointestinal: Normal Bowel Sounds, Non Tender, Soft Extremity: Normal Inspection, Non Tender, No Pedal Edema Skin: Normal Color, Warm/Dry Neurologic/Psychiatric: Alert, Oriented x3, No Motor/Sensory Deficits, Normal Mood/Affect Allergies: Coded Allergies: No Known Drug Allergies (Unverified , 03/29/12) Discharge Summary Date of Admission Mar 20, 2019 at 15:08 Date of Discharge Discharge Date: Mar 22, 2019 Discharge Time: 12:00 Admission Diagnosis Acute lower GI bleeding Consults/Procedures Consulations surgery Discharge Diagnosis Diverticulitis with diverticular bleeding (1) Diverticulitis of colon with bleeding Status: Acute Clinical Quality Measures DVT/VTE Risk/Contraindication: Risk Factor Score Per Nursin RFS Level Per Nursing on Admit: 2=Moderate PAWAN ANDRES MD Mar 22, 2019 13:44
--- NOTE | 2019-03-22 13:49 | Progress Note - Surgery ---
Subjective Time Seen by a Provider: 13:24 Subjective/Events-last exam Pt seen and examined, denies abdominal pain. Tolerating diet. Review of Systems General: No Chills, No Night Sweats Pulmonary: No Dyspnea, No Cough Cardiovascular: No: Chest Pain, Palpitations Gastrointestinal: No: Nausea, Vomiting Objective Exam Vital Signs Date Time Temp Pulse Resp B/P (MAP) Pulse Ox O2 Delivery O2 Flow Rate FiO2 03/22/19 08:40 97 Room Air 03/22/19 08:08 36.5 64 18 166/72 (103) 97 Room Air 03/22/19 04:48 36.6 56 20 136/68 (90) 96 Room Air 03/22/19 00:44 36.4 53 20 113/64 (80) 95 Room Air 03/21/19 20:30 36.2 58 20 147/71 (96) 96 Room Air 03/21/19 20:20 Room Air 03/21/19 16:17 36.0 58 18 154/72 (99) 98 Room Air 03/21/19 15:08 36.0 58 18 154/72 98 Room Air I & O 03/22/19 07:00 Intake Total 2550 ml Balance 2550 ml Capillary Refill : Less Than 3 Seconds General Appearance: No Apparent Distress, WD/WN HEENT: PERRL/EOMI, Pharynx Normal Respiratory: Lungs Clear, Normal Breath Sounds, No Respiratory Distress Cardiovascular: Regular Rate, Rhythm, No Edema, No Murmur Gastrointestinal: non tender, soft, no organomegaly Extremity: Normal Inspection, Non Tender, No Pedal Edema Neurologic/Psychiatric: Alert, Oriented x3 Results Lab Laboratory Tests 03/21/19 15:42: Glucometer 183H 03/21/19 16:59: Hemoglobin 9.5#L, Hematocrit 28L 03/21/19 20:42: Glucometer 161H 03/22/19 04:55: Hemoglobin 8.9L, Hematocrit 26L 03/22/19 06:11: Glucometer 145H 03/22/19 11:10: Glucometer 171H Assessment/Plan Assessment/Plan Assessment/Plan Hematochezia Diverticulitis -mild with Diverticulosis Anemia Pt is ok to go home today and do colonoscopy as outpatient; if anything changes or bleeding gets worse can come back in to do something sooner. Call office sunday for appt. Clinical Quality Measures DVT/VTE Risk/Contraindication: Risk Factor Score Per Nursin RFS Level Per Nursing on Admit: 2=Moderate MARY TAVARES DO Mar 22, 2019 13:49
[2019-03-22 15:55] VITALS: BP 150/70
== END 2019-03-22 15:55 | disposition home or self-care (01) | DRG 378 ==
LOC: EDUNIT# 16:27 → ER 16:28 → 4TH 18:19 → OBSVTOIN 03-20 15:08
PROVIDERS: ADMIT Internal Medicine; ATTEND Internal Medicine
DX: K57.31 Diverticulosis of large intestine without perforation or abscess with bleeding (principal); D62 Acute posthemorrhagic anemia; E78.5 Hyperlipidemia, unspecified; E78.00 Pure hypercholesterolemia, unspecified; I10 Essential (primary) hypertension; E11.40 Type 2 diabetes mellitus with diabetic neuropathy, unspecified; M19.90 Unspecified osteoarthritis, unspecified site; Z79.4 Long term (current) use of insulin; Z79.82 Long term (current) use of aspirin
CPT/HCPCS: 36415; 74176; 80048; 80053; 82962; 85014; 85018; 85025; 85027; 85610; 86850; 86900; 86901; 86920; 96365; G0378

== ENCOUNTER → 2019-03-24 | Outpatient (CLI) | payer MEDICARE ==
[~2019-03-24] MED LIST changes: +AMLO10TA7 PO; +ASPI-983 PO; +BETA15CR37 TOP; +CARV12.53 PO; +CIPR-225 PO; +LISI-552 PO; +MULT1CAP21 PO; +OMEP40CA36 PO; +ROSU5TAB13 PO; +UBID100C7 PO
[2019-03-24 09:59] LABS: HEMOGLOBIN 10.2 G/DL (13.3-17.7)
== END ==
LOC: LAB 09:47
PROVIDERS: ATTEND Internal Medicine
DX: K57.33 Diverticulitis of large intestine without perforation or abscess with bleeding (principal)
CPT/HCPCS: 36415; 85014; 85018

== ENCOUNTER 2019-04-22 05:37 | Outpatient (CLI) | payer MEDICARE ==
[~2019-04-22] VITALS: Ht 172 cm; Wt 72.5 kg
[~2019-04-22 05:37] MED LIST changes: +BETA15CR14 TOP; -BETA15CR37 TOP; +OMEP40CA27 PO; -OMEP40CA36 PO
== END 2019-04-22 12:14 | disposition home or self-care (01) ==
LOC: PREOP 05:37
PROVIDERS: ATTEND Surgery
DX: Z01.818 Encounter for other preprocedural examination (principal)

== ENCOUNTER 2019-08-25 14:21 | Emergency (ER) | payer MEDICARE ==
[~2019-08-25] VITALS: Ht 172 cm; Wt 68.0 kg
--- NOTE | 2019-08-25 14:59 | ED General ---
General Chief Complaint: General Problems/Pain Stated Complaint: SOA Nursing Triage Note: Pt amb to ED room 10. Pt here w/ complaints of "fullness" in bilat ears x1 week. Pt also reports some SOA for past several months with exertion but denies SOA upon arrival to ED. Pt also complaints of stomach discomfort that is relieved after eating a meal. Nursing Sepsis Screen: No Definite Risk Source of Information: Patient Exam Limitations: No Limitations History of Present Illness Date Seen by Provider: Aug 25, 2019 Time Seen by Provider: 14:56 Initial Comments To ER with reports of "my get up and go got up and went". He states that he's had fatigue and dyspnea on exertion intermittently since April when he had a second urinary stent placed and a blood transfusion. He denies any shortness of breath currently. He does report some dizziness and a full sensation in his right ear. Timing/Duration: 1-2 Days Severity: Moderate Associated Systoms: Denies Symptoms Allergies and Home Medications Allergies Coded Allergies: No Known Drug Allergies (Unverified , 04/22/19) Home Medications Amlodipine Besylate 10 Mg Tablet, 10 MG PO DAILY, (Reported) Aspirin 81 Mg Tablet.dr, 81 MG PO DAILY, (Reported) Betamethasone/Propylene Glyc 15 Gm Cream..g., TOP MoWeFr, (Reported) Carvedilol 12.5 Mg Tablet, 12.5 MG PO BID, (Reported) Hydrochlorothiazide 12.5 Mg Capsule, 12.5 MG PO DAILY, (Reported) Lisinopril 20 Mg Tablet, 20 MG PO DAILY, (Reported) Metformin HCl 1,000 Mg Tablet, 1,000 MG PO BID, (Reported) Metronidazole 500 Mg Tablet, 500 MG PO TID Prescribed by: PAWAN ANDRES on 03/22/19 1431 Multivit-Min/Hrb Cb121 1 Each Capsule, 2 CAP PO DAILY, (Reported) Multivitamin 1 Each Capsule, 1 CAP PO DAILY, (Reported) [place]-3/Dha/Epa/Fish Oil 1 Each Capsule.dr, 1,200 MG PO DAILY, (Reported) Omeprazole 40 Mg Capsule.dr, 40 MG PO DAILY, (Reported) Rosuvastatin Calcium 5 Mg Tablet, 5 MG PO DAILY, (Reported) Ubidecarenone 100 Mg Capsule, 100 MG PO DAILY, (Reported) Patient Home Medication List Home Medication List Reviewed: Yes Review of Systems Review of Systems Constitutional: see HPI EENTM: see HPI Respiratory: no symptoms reported Genitourinary: no symptoms reported Musculoskeletal: no symptoms reported Skin: no symptoms reported Psychiatric/Neurological: No Symptoms Reported Hematologic/Lymphatic: No Symptoms Reported Immunological/Allergic: no symptoms reported (1) Past Vknztap-Ykxbvt-Zdeuja Hx Patient Social History Alcohol Use: Rarely Uses Alcohol Beverage of Choice: Wine Recreational Drug Use: No Smoking Status: Former Smoker Type Used: Pipe Former Smoker, Quit: Dec 11, 1977 2nd Hand Smoke Exposure: No Recent Foreign Travel: No Contact w/Someone Who Travel: No Recent Infectious Disease Expo: No Recent Hopitalizations: No Immunizations Up To Date Tetanus Booster (TDap): Unknown Date of Pneumonia Vaccine: Mar 29, 2016 Date of Influenza Vaccine: Jan 08, 2019 Seasonal Allergies Seasonal Allergies: No Past Medical History Surgeries: Yes (CYST REMOVED FROM BACK OF NECK, heart cath, colonoscopy) Tonsillectomy, Vasectomy Respiratory: No Currently Using CPAP: No Currently Using BIPAP: No Cardiac: Yes (STENT PLACED x2) High Cholesterol, Hypertension, Irregular Heartbeat Neurological: Yes Neuropathy Reproductive Disorders: No Sexually Transmitted Disease: No HIV/AIDS: No Genitourinary: No Gastrointestinal: Yes Gastrointestinal Bleed, Diverticulosis Musculoskeletal: Yes Arthritis Endocrine: Yes Diabetes, Non-Insulin dep HEENT: Yes (GLASSES) Cataract Loss of Vision: Denies Hearing Impairment: Denies Cancer: Yes Skin Psychosocial: No Integumentary: Yes (SCALP LESION) Blood Disorders: No Adverse Reaction/Blood Tranf: No (HAS HAD BLOOD WITH NO REACTION) Family Medical History No Pertinent Family Hx Physical Exam Vital Signs Vital Signs - First Documented 08/25/19 14:35 Temp 36.7 Pulse 66 Resp 18 B/P (MAP) 156/86 (109) Pulse Ox 95 O2 Delivery Room Air Capillary Refill : Less Than 3 Seconds Height, Weight, BMI Height: 5'8.00" Weight: 163lbs. 0.0oz. 73.064234iv; 22.00 BMI Method:Stated General Appearance: No Apparent Distress, WD/WN Eyes: Bilateral Eye Normal Inspection, Bilateral Eye PERRL, Bilateral Eye EOMI HEENT: PERRL/EOMI, Other (cerumen impaction in the right ear obscuring tympanic membrane) Neck: Full Range of Motion, Normal Inspection Respiratory: No Accessory Muscle Use, No Respiratory Distress Cardiovascular: Regular Rate, Rhythm, Normal Peripheral Pulses Gastrointestinal: Non Tender, Soft Extremity: Normal Capillary Refill, Normal Inspection Neurologic/Psychiatric: Alert, Oriented x3 Skin: Normal Color, Warm/Dry Procedures/Interventions Suture Size: 5-0 Progress/Results/Core Measures Suspected Sepsis Recent Fever Within 48 Hours: No Infection Criteria Present: None New/Unexplained Altered Menta: No Sepsis Screen: No Definite Risk SIRS Temperature: Pulse: 66 Respiratory Rate: 18 Laboratory Tests 08/25/19 15:00: White Blood Count 7.6 Blood Pressure 156 /86 Mean: 109 Laboratory Tests 08/25/19 15:00: Creatinine 0.85, Platelet Count 215, Total Bilirubin 0.4 Results/Orders Lab Results Laboratory Tests Test 08/25/19 15:00 08/25/19 15:55 Range/Units White Blood Count 7.6 4.3-11.0 10^3/uL Red Blood Count 3.75 L 4.35-5.85 10^6/uL Hemoglobin 11.2 L 13.3-17.7 G/DL Hematocrit 33 L 40-54 % Mean Corpuscular Volume 88 80-99 FL Mean Corpuscular Hemoglobin 30 25-34 PG Mean Corpuscular Hemoglobin Concent 34 32-36 G/DL Red Cell Distribution Width 15.3 H 10.0-14.5 % Platelet Count 215 130-400 10^3/uL Mean Platelet Volume 9.9 7.4-10.4 FL Neutrophils (%) (Auto) 67 42-75 % Lymphocytes (%) (Auto) 15 12-44 % Monocytes (%) (Auto) 14 H 0-12 % Eosinophils (%) (Auto) 3 0-10 % Basophils (%) (Auto) 0 0-10 % Neutrophils # (Auto) 5.0 1.8-7.8 X 10^3 Lymphocytes # (Auto) 1.1 1.0-4.0 X 10^3 Monocytes # (Auto) 1.1 H 0.0-1.0 X 10^3 Eosinophils # (Auto) 0.3 0.0-0.3 10^3/uL Basophils # (Auto) 0.0 0.0-0.1 10^3/uL Sodium Level 130 L 135-145 MMOL/L Potassium Level 4.8 3.6-5.0 MMOL/L Chloride Level 96 L 98-107 MMOL/L Carbon Dioxide Level 23 21-32 MMOL/L Anion Gap 11 5-14 MMOL/L Blood Urea Nitrogen 17 7-18 MG/DL Creatinine 0.85 0.60-1.30 MG/DL Estimat Glomerular Filtration Rate > 60 BUN/Creatinine Ratio 20 Glucose Level 116 H 70-105 MG/DL Calcium Level 9.1 8.5-10.1 MG/DL Corrected Calcium 9.3 8.5-10.1 MG/DL Total Bilirubin 0.4 0.1-1.0 MG/DL Aspartate Amino Transf (AST/SGOT) 16 5-34 U/L Alanine Aminotransferase (ALT/SGPT) 16 0-55 U/L Alkaline Phosphatase 53 40-136 U/L Troponin I < 0.028 <0.028 NG/ML B-Type Natriuretic Peptide 88.5 <100.0 PG/ML Total Protein 6.6 6.4-8.2 GM/DL Albumin 3.8 3.2-4.5 GM/DL Thyroid Stimulating Hormone (TSH) 1.38 0.35-4.94 UIU/ML Free Thyroxine 1.06 0.70-1.48 NG/DL My Orders Orders - CARMEN GRIMM APRN Thyroid Stimulating Hormone (08/25/19 14:54) Free T4 (Free Thyroxine) (08/25/19 14:54) Cbc With Automated Diff (08/25/19 14:54) Comprehensive Metabolic Panel (08/25/19 14:54) Ua Culture If Indicated (08/25/19 14:54) BNP (08/25/19 14:54) Troponin I (08/25/19 14:54) Ekg Tracing (08/25/19 14:54) Chest Pa/Lat (2 View) (08/25/19 15:12) Vital Signs/I&O 08/25/19 14:35 Temp 36.7 Pulse 66 Resp 18 B/P (MAP) 156/86 (109) Pulse Ox 95 O2 Delivery Room Air Capillary Refill : Less Than 3 Seconds Blood Pressure Mean: 109 Departure Impression Primary Impression: Impacted cerumen of right ear Additional Impression: Fatigue Disposition: 01 HOME, SELF-CARE Condition: Stable Departure-Patient Inst. Decision time for Depature: 16:24 Referrals: ANNA CABAN MD (PCP/Family) Primary Care Physician Patient Instructions: Fatigue (DC) Add. Discharge Instructions: 1. Follow-up with your doctor later this week for recheck. Return to ER for any worsening. All discharge instructions reviewed with patient and/or family. Voiced understanding. CARMEN GRIMM [employer]MENT [employer]ACHINERY [employer]ER Aug 25, 2019 14:59
[2019-08-25 15:16] LABS: BASOPHILS % (AUTO) 0 % (0-10); EOSINOPHILS # (AUTO) 0.3 10^3/uL (0.0-0.3); EOSINOPHILS % (AUTO) 3 % (0-10); HEMATOCRIT 33 % (40-54); HEMOGLOBIN 11.2 G/DL (13.3-17.7); LYMPHOCYTES # (AUTO) 1.1 X 10^3 (1.0-4.0); LYMPHOCYTES % (AUTO) 15 % (12-44); MEAN CORPUSCULAR HEMOGLOBIN 30 PG (25-34); MEAN CORPUSCULAR HGB CONC 34 G/DL (32-36); MEAN CORPUSCULAR VOLUME 88 FL (80-99); MEAN PLATELET VOLUME 9.9 FL (7.4-10.4); MONOCYTES # (AUTO) 1.1 X 10^3 (0.0-1.0); MONOCYTES % (AUTO) 14 % (0-12); NEUTROPHILS % (AUTO) 67 % (42-75); PLATELET COUNT 215 10^3/uL (130-400); RED CELL DISTRIBUTION WIDTH 15.3 % (10.0-14.5); WHITE BLOOD COUNT 7.6 10^3/uL (4.3-11.0)
[2019-08-25 15:29] LABS: ALBUMIN 3.8 GM/DL (3.2-4.5); CHLORIDE 96 MMOL/L (98-107); POTASSIUM 4.8 MMOL/L (3.6-5.0); SODIUM 130 MMOL/L (135-145)
[2019-08-25 15:31] LABS: CALCIUM 9.1 MG/DL (8.5-10.1)
[2019-08-25 15:32] LABS: GLUCOSE 116 MG/DL (70-105); TOTAL PROTEIN 6.6 GM/DL (6.4-8.2)
[2019-08-25 15:33] LABS: BILIRUBIN,TOTAL 0.4 MG/DL (0.1-1.0); CARBON DIOXIDE 23 MMOL/L (21-32)
[2019-08-25 15:35] LABS: ALKALINE PHOSPHATASE 53 U/L (40-136); CREATININE SERUM 0.85 MG/DL (0.60-1.30); GFR ESTIMATED > 60
[2019-08-25 15:36] LABS: BUN/CREATININE RATIO 20
[2019-08-25 15:38] LABS: ALANINE AMINOTRANSFERASE 16 U/L (0-55)
[2019-08-25 15:59] LABS: FREE T4 (FREE THYROXINE) 1.06 NG/DL (0.70-1.48)
[2019-08-25 16:04] LABS: BILIRUBIN,URINE NEGATIVE (NEGATIVE); CLARITY,URINE CLEAR; COLOR,URINE YELLOW; GLUCOSE, URINE (UA) NEGATIVE (NEGATIVE); KETONES,URINE NEGATIVE (NEGATIVE); LEUKOCYTE ESTERASE ,URINE NEGATIVE (NEGATIVE); NITRITE,URINE NEGATIVE (NEGATIVE); PROTEIN,URINE NEGATIVE (NEGATIVE)
--- NOTE | 2019-08-25 16:17 | Diagnostic Imaging Report ---
CLINICAL INDICATION: Patient with dizziness and shortness of air. EXAM: Chest x-ray, PA and lateral views. COMPARISON: Chest x-ray dated 04/27/2018. CT scan of the chest, abdomen, and pelvis dated 04/12/2015. FINDINGS: There is slight decreased lung volume involving both lungs compared to the prior study. There is slight increased amorphous airspace opacities in both lung bases. This may represent atelectasis or scarring. Progression of chronic interstitial lung disease may also be considered. There is no pleural effusion or pneumothorax. The pulmonary vasculature and cardiac silhouette are within normal limits. There are degenerative spurs involving the thoracic spine and mild right curvature of the thoracic spine. IMPRESSION: There are slightly decreased lung volumes compared to the prior study with progression of amorphous airspace opacities in both lung bases (left side more than the right). These findings may represent progression of atelectasis. Subtle infiltrate at the left lung base cannot be completely excluded but is suspected to be less likely. Progression of interstitial lung disease may also be considered. Dictated by: Dictated on workstation # [id number]
[2019-08-25 16:30] LABS: BACTERIA,URINE NEGATIVE /HPF
[2019-08-25 16:53] VITALS: BP 142/85
== END 2019-08-25 16:53 | disposition home or self-care (01) ==
LOC: EDUNIT# 14:21 → ER 14:21
DX: H61.21 Impacted cerumen, right ear (principal); R53.83 Other fatigue; I10 Essential (primary) hypertension; E11.40 Type 2 diabetes mellitus with diabetic neuropathy, unspecified; E78.00 Pure hypercholesterolemia, unspecified; Z85.828 Personal history of other malignant neoplasm of skin; Z79.82 Long term (current) use of aspirin; Z79.84 Long term (current) use of oral hypoglycemic drugs; Z87.891 Personal history of nicotine dependence; Z95.5 Presence of coronary angioplasty implant and graft
CPT/HCPCS: 36415; 71046; 80053; 81000; 83880; 84439; 84443; 84484; 85025; 93005

== ENCOUNTER 2019-09-01 10:18 | Emergency (ER) | payer MEDICARE ==
[~2019-09-01] VITALS: Ht 172.7 cm; Wt 72.7 kg
[2019-09-01] MEDS ORDERED: LIDOCAINE/EPI 1%-1:200,000 (XYLOCAINE) 30 ML VIAL INJ ONE (10:45)
[2019-09-01] MEDS ORDERED: TETANUS,DIPTH,PERTUSS P/F (BOOSTRIX) 0.5 ML VIAL IM ONE (10:45)
--- NOTE | 2019-09-01 10:47 | ED Head Injury ---
General Chief Complaint: Trauma-Non Activation Stated Complaint: FALL Nursing Triage Note: Laceration noted to R superior eye with active bleeding noted. Pressure applied to wound et ABD pressure drsg applied. Source: patient Exam Limitations: no limitations History of Present Illness Date Seen by Provider: Sep 01, 2019 Time Seen by Provider: 10:47 Initial Comments To ER with reports of a laceration just above the right eye with bleeding after a fall at home. He did strike his head, no loss of consciousness no vomiting. He is on aspirin. Location Injury Occurred: HOME Occurred: just prior to arrival Severity: moderate Location: frontal Loss of Consciousness: no loss of consciousness Associated Systoms: Denies Symptoms Allergies and Home Medications Allergies Coded Allergies: No Known Drug Allergies (Unverified , 04/22/19) Home Medications Amlodipine Besylate 10 Mg Tablet, 10 MG PO DAILY, (Reported) Aspirin 81 Mg Tablet.dr, 81 MG PO DAILY, (Reported) Betamethasone/Propylene Glyc 15 Gm Cream..g., TOP MoWeFr, (Reported) Carvedilol 12.5 Mg Tablet, 12.5 MG PO BID, (Reported) Hydrochlorothiazide 12.5 Mg Capsule, 12.5 MG PO DAILY, (Reported) Lisinopril 20 Mg Tablet, 20 MG PO DAILY, (Reported) Metformin HCl 1,000 Mg Tablet, 1,000 MG PO BID, (Reported) Metronidazole 500 Mg Tablet, 500 MG PO TID Prescribed by: PAWAN ANDRES on 03/22/19 1431 Multivit-Min/Hrb Cb121 1 Each Capsule, 2 CAP PO DAILY, (Reported) Multivitamin 1 Each Capsule, 1 CAP PO DAILY, (Reported) [place]-3/Dha/Epa/Fish Oil 1 Each Capsule.dr, 1,200 MG PO DAILY, (Reported) Omeprazole 40 Mg Capsule.dr, 40 MG PO DAILY, (Reported) Rosuvastatin Calcium 5 Mg Tablet, 5 MG PO DAILY, (Reported) Ubidecarenone 100 Mg Capsule, 100 MG PO DAILY, (Reported) Patient Home Medication List Home Medication List Reviewed: Yes Review of Systems Review of Systems Constitutional: see HPI Eyes: No Symptoms Reported Ears, Nose, Mouth, Throat: no symptoms reported Respiratory: no symptoms reported Cardiovascular: no symptoms reported Genitourinary: no symptoms reported Musculoskeletal: no symptoms reported Skin: no symptoms reported Psychiatric/Neurological: No Symptoms Reported Endocrine: No Symptoms Reported Hematologic/Lymphatic: No Symptoms Reported Past Bhzbphw-Lkmisq-Pnstaq Hx Patient Social History Alcohol Use: Denies Use Number of Drinks Today: Alcohol Beverage of Choice: Wine Recreational Drug Use: No Smoking Status: Former Smoker Type Used: Pipe Former Smoker, Quit: Dec 11, 1977 2nd Hand Smoke Exposure: No Recent Foreign Travel: No Contact w/Someone Who Travel: No Recent Infectious Disease Expo: No Recent Hopitalizations: No Immunizations Up To Date Tetanus Booster (TDap): Unknown Date of Pneumonia Vaccine: Mar 29, 2016 Date of Influenza Vaccine: Jan 08, 2019 Seasonal Allergies Seasonal Allergies: No Past Medical History Surgeries: Yes (CYST REMOVED FROM BACK OF NECK, heart cath, colonoscopy) Tonsillectomy, Vasectomy Respiratory: No Currently Using CPAP: No Currently Using BIPAP: No Cardiac: Yes (STENT PLACED x2) High Cholesterol, Hypertension, Irregular Heartbeat Neurological: Yes Neuropathy Reproductive Disorders: No Sexually Transmitted Disease: No HIV/AIDS: No Genitourinary: No Gastrointestinal: Yes Gastrointestinal Bleed, Diverticulosis Musculoskeletal: Yes Arthritis Endocrine: Yes Diabetes, Non-Insulin dep HEENT: Yes (GLASSES) Cataract Loss of Vision: Denies Hearing Impairment: Denies Cancer: Yes Skin Psychosocial: No Integumentary: Yes (SCALP LESION) Blood Disorders: No Adverse Reaction/Blood Tranf: No (HAS HAD BLOOD WITH NO REACTION) Family Medical History No Pertinent Family Hx Physical Exam Vital Signs Vital Signs - First Documented 09/01/19 10:18 Temp 36.5 Pulse 61 Resp 20 B/P (MAP) 144/108 (120) Pulse Ox 97 O2 Delivery Room Air Capillary Refill : Less Than 3 Seconds Height, Weight, BMI Height: 5'8.00" Weight: 163lbs. 0.0oz. 73.688636eg; 24.00 BMI Method:Stated General Appearance: WD/WN, no apparent distress HEENT: PERRL/EOMI, other (large right periorbital ecchymosis with laceration with active bleeding, there is also a right auricular hematoma) Neck: non-tender, full range of motion Respiratory: no respiratory distress, no accessory muscle use Gastrointestinal: normal bowel sounds, non tender Psychiatric: alert, oriented x 3 [place] Nerves: normal hearing, normal speech, PERRL Skin: normal color, warm/dry [place] Coma Score Best Eye Response: (4) Open Spontaneously Best Verbal Response: (5) Oriented Best Motor Response: (6) Obeys Commands [place] Total: 15 Procedures/Interventions Wound Location: Face Wound Length (cm): 3 Wound's Depth, Shape: linear Anesthesia: Lidocaine w/ Epi Suture: Prolene Suture Size: 5-0 Number of Sutures: 1 (Continuous) Layer Closure?: 1 Number Deep Layer Sutures: 0 Right lateral eyebrow anesthetized with lidocaine with epinephrine totaling 2 mL. Wound was closed with one continuous suture size 5-0 Prolene. This achieved hemostasis. Auricular hematoma drainage: He also has a right auricular hematoma. I used lidocaine without epinephrine totaling 0.5 mL to anesthetized the overlying skin, then used an 11 blade scalpel to incise the area over this hematoma, unable to express any clot. This area was covered with Xeroform, gauze rolled up behind the ear and over the ear to create a pressure dressing on the ear. Progress/Results/Core Measures Results/Orders Lab Results Laboratory Tests Test 09/01/19 11:40 Range/Units White Blood Count 10.0 4.3-11.0 10^3/uL Red Blood Count 3.83 L 4.35-5.85 10^6/uL Hemoglobin 11.4 L 13.3-17.7 G/DL Hematocrit 34 L 40-54 % Mean Corpuscular Volume 88 80-99 FL Mean Corpuscular Hemoglobin 30 25-34 PG Mean Corpuscular Hemoglobin Concent 34 32-36 G/DL Red Cell Distribution Width 14.9 H 10.0-14.5 % Platelet Count 217 130-400 10^3/uL Mean Platelet Volume 9.9 7.4-10.4 FL Neutrophils (%) (Auto) 78 H 42-75 % Lymphocytes (%) (Auto) 11 L 12-44 % Monocytes (%) (Auto) 9 0-12 % Eosinophils (%) (Auto) 2 0-10 % Basophils (%) (Auto) 0 0-10 % Neutrophils # (Auto) 7.9 H 1.8-7.8 X 10^3 Lymphocytes # (Auto) 1.1 1.0-4.0 X 10^3 Monocytes # (Auto) 0.9 0.0-1.0 X 10^3 Eosinophils # (Auto) 0.2 0.0-0.3 10^3/uL Basophils # (Auto) 0.0 0.0-0.1 10^3/uL Prothrombin Time 13.9 12.2-14.7 SEC INR Comment 1.0 0.8-1.4 Sodium Level 130 L 135-145 MMOL/L Potassium Level 4.7 3.6-5.0 MMOL/L Chloride Level 96 L 98-107 MMOL/L Carbon Dioxide Level 23 21-32 MMOL/L Anion Gap 11 5-14 MMOL/L Blood Urea Nitrogen 14 7-18 MG/DL Creatinine 0.82 0.60-1.30 MG/DL Estimat Glomerular Filtration Rate > 60 BUN/Creatinine Ratio 17 Glucose Level 153 H 70-105 MG/DL Calcium Level 9.3 8.5-10.1 MG/DL Corrected Calcium 9.5 8.5-10.1 MG/DL Total Bilirubin 0.6 0.1-1.0 MG/DL Aspartate Amino Transf (AST/SGOT) 19 5-34 U/L Alanine Aminotransferase (ALT/SGPT) 16 0-55 U/L Alkaline Phosphatase 51 40-136 U/L Total Protein 6.7 6.4-8.2 GM/DL Albumin 3.8 3.2-4.5 GM/DL My Orders Orders - CARMEN GRIMM APRN Ct Head/Cervical Spine Wo (09/01/19 10:42) Lidocaine/Epi 1% 1:200,00 (Xylocaine/Epi (09/01/19 10:45) Dipht,Pertuss(Acell),Tet Adult (Boostrix (09/01/19 10:45) Lidocaine/Epi 2% 1:100,000 (Xylocaine/Ep (09/01/19 10:57) Cbc With Automated Diff (09/01/19 11:45) Comprehensive Metabolic Panel (09/01/19 11:45) Protime With Inr (09/01/19 11:45) Medications Given in ED Current Medications Medications Dose Ordered Sig/Ameya Route Start Time Stop Time Status Last Admin Dose Admin Diphtheria/ Tetanus/Acell Pertussis 0.5 ml ONCE ONCE IM 09/01/19 10:45 09/01/19 10:46 DC 09/01/19 11:04 0.5 ML Lidocaine/ Epinephrine 20 ml STK-MED ONCE .ROUTE 09/01/19 10:57 09/01/19 10:59 DC 09/01/19 11:40 20 ML Vital Signs/I&O 09/01/19 10:18 Temp 36.5 Pulse 61 Resp 20 B/P (MAP) 144/108 (120) Pulse Ox 97 O2 Delivery Room Air Blood Pressure Mean: 120 Departure Communication (Admissions) Family Conversation Spoke with Dr. Santoro on-call for trauma here notified him of the need for transfer. He agrees. Spoke with Dr. Bragg from neurosurgery and Dr. Uriarte from ER, both of whom accept pt in transfer. NAME: MAGUE DARDEN [facility] REC#: [id number] PT STATUS: REG ER : 1932 PHYSICIAN: CARMEN GRIMM APRN ADMIT DATE: 09/01/19/ER Draft Date of Exam:09/01/19 CT HEAD/CERVICAL SPINE WO PROCEDURE: CT head and CT cervical spine without contrast. TECHNIQUE: Multiple contiguous axial images were obtained through the brain and cervical spine without the use of intravenous contrast. Sagittal and coronal reformations through the cervical spine were then performed. Auto Exposure Controls were utilized during the CT exam to meet ALARA standards for radiation dose reduction. INDICATION: Fall with large laceration on left side of the head. COMPARISON: Correlation is made with prior CT from 04/17/2018. FINDINGS: CT head: Ventricular size and sulcal pattern are stable. There is a small amount of acute subarachnoid hemorrhage along the right temporal and frontal convexity. No definite subdural or epidural hematoma is seen. No intraventricular hemorrhage is identified. There is no midline shift. Cisterns are patent. There is some fluid in the right maxillary sinus. Right scalp laceration in temporal frontal region is noted. No depressed calvarial fracture is seen. IMPRESSION: Small amount of acute subarachnoid hemorrhage along the right frontal and temporal convexity. There is no midline shift. No other significant abnormality is detected. CT cervical spine: Curvature and alignment of the cervical spine is normal. No fractures are seen. The prevertebral tissues are within normal limits. Odontoid appears to be intact. Multilevel spondylosis with variable disc space narrowing and marginal osteophyte formation is noted. There is multilevel facet arthropathy. IMPRESSION: Spondylosis. No acute bony abnormality is detected. Dictated on workstation # [id number] Dict: 09/01/19 1126 Trans: 09/01/19 1133 [facility] [facility] [employer] [id number] Interpreted by: ENIO CARRASCO MD Electronically signed by: Impression Primary Impression: Facial laceration Qualified Codes: S01.81XA - Laceration without foreign body of other part of head, initial encounter Additional Impressions: Fall at home Qualified Codes: W19.XXXA - Unspecified fall, initial encounter; Y92.009 - Unspecified place in unspecified non-institutional (private) residence as the place of occurrence of the external cause Hematoma of auricle or pinna ICH (intracerebral hemorrhage) Disposition: 01 HOME, SELF-CARE Condition: Stable Departure-Patient Inst. Referrals: ANNA CABAN MD (PCP/Family) Primary Care Physician Add. Discharge Instructions: 1. Return to ER for any severe headache, vomiting, confusion. Otherwise she can shower starting tonight leading water run over this briefly, return to ER in about 5-7 days to have stitches removed. All discharge instructions reviewed with patient and/or family. Voiced understanding. CARMEN GRIMM [employer] B[employer]ER Sep 01, 2019 10:47
[2019-09-01] MEDS ORDERED: LIDOCAINE/EPI 2% 1:100,00 (XYLOCAINE) 20 ML VIAL ONE (10:57)
--- NOTE | 2019-09-01 11:34 | Diagnostic Imaging Report ---
PROCEDURE: CT head and CT cervical spine without contrast. TECHNIQUE: Multiple contiguous axial images were obtained through the brain and cervical spine without the use of intravenous contrast. Sagittal and coronal reformations through the cervical spine were then performed. Auto Exposure Controls were utilized during the CT exam to meet ALARA standards for radiation dose reduction. INDICATION: Fall with large laceration on left side of the head. COMPARISON: Correlation is made with prior CT from 04/17/2018. FINDINGS: CT head: Ventricular size and sulcal pattern are stable. There is a small amount of acute subarachnoid hemorrhage along the right temporal and frontal convexity. No definite subdural or epidural hematoma is seen. No intraventricular hemorrhage is identified. There is no midline shift. Cisterns are patent. There is some fluid in the right maxillary sinus. Right scalp laceration in temporal frontal region is noted. No depressed calvarial fracture is seen. IMPRESSION: Small amount of acute subarachnoid hemorrhage along the right frontal and temporal convexity. There is no midline shift. No other significant abnormality is detected. CT cervical spine: Curvature and alignment of the cervical spine is normal. No fractures are seen. The prevertebral tissues are within normal limits. Odontoid appears to be intact. Multilevel spondylosis with variable disc space narrowing and marginal osteophyte formation is noted. There is multilevel facet arthropathy. IMPRESSION: Spondylosis. No acute bony abnormality is detected. Dictated by: Dictated on workstation # [id number]
[2019-09-01 11:52] LABS: BASOPHILS % (AUTO) 0 % (0-10); EOSINOPHILS # (AUTO) 0.2 10^3/uL (0.0-0.3); EOSINOPHILS % (AUTO) 2 % (0-10); HEMATOCRIT 34 % (40-54); HEMOGLOBIN 11.4 G/DL (13.3-17.7); LYMPHOCYTES # (AUTO) 1.1 X 10^3 (1.0-4.0); LYMPHOCYTES % (AUTO) 11 % (12-44); MEAN CORPUSCULAR HEMOGLOBIN 30 PG (25-34); MEAN CORPUSCULAR HGB CONC 34 G/DL (32-36); MEAN CORPUSCULAR VOLUME 88 FL (80-99); MEAN PLATELET VOLUME 9.9 FL (7.4-10.4); MONOCYTES # (AUTO) 0.9 X 10^3 (0.0-1.0); MONOCYTES % (AUTO) 9 % (0-12); NEUTROPHILS # (AUTO) 7.9 X 10^3 (1.8-7.8); NEUTROPHILS % (AUTO) 78 % (42-75); PLATELET COUNT 217 10^3/uL (130-400); RED CELL DISTRIBUTION WIDTH 14.9 % (10.0-14.5)
[2019-09-01 11:54] LABS: ALBUMIN 3.8 GM/DL (3.2-4.5); CHLORIDE 96 MMOL/L (98-107); POTASSIUM 4.7 MMOL/L (3.6-5.0); SODIUM 130 MMOL/L (135-145)
[2019-09-01 11:55] LABS: CALCIUM 9.3 MG/DL (8.5-10.1)
[2019-09-01 11:57] LABS: GLUCOSE 153 MG/DL (70-105); PROTHROMBIN TIME PATIENT 13.9 SEC (12.2-14.7); TOTAL PROTEIN 6.7 GM/DL (6.4-8.2)
[2019-09-01 11:58] LABS: BILIRUBIN,TOTAL 0.6 MG/DL (0.1-1.0); CARBON DIOXIDE 23 MMOL/L (21-32)
[2019-09-01 12:00] LABS: ALKALINE PHOSPHATASE 51 U/L (40-136); CREATININE SERUM 0.82 MG/DL (0.60-1.30); GFR ESTIMATED > 60
[2019-09-01 12:01] LABS: BUN/CREATININE RATIO 17
[2019-09-01 12:03] LABS: ALANINE AMINOTRANSFERASE 16 U/L (0-55)
--- NOTE | 2019-09-01 12:05 | NUR ---
Per pt request, Lor, contacted by this RN et updated regading findings et pt transfer to [facility]. Lor reports pt has been experiencing "balance issues" for approx x1wk. Lor voices no further questions or concerns at this time.
--- NOTE | 2019-09-01 12:13 | NUR ---
Pt report called to commercial center manager at [facility], for ER-ER transfer.
[2019-09-01 12:45] VITALS: BP 128/71
--- OUTSIDE RECORDS SUMMARY | 2019-09-01 12:57 | XMS REPORT | Continuity of Care Document ---
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 PERSONAL HISTORY OF NICOTINE DEPENDENCE 05/[facility] 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 Results Test Result Range Complete blood count (CBC) with automate d white blood cell (WBC) differential - 10/19/16 14:55 Blood leukocytes automated count (number/volume) 9.3 10*3/uL 4.3-11.0 Blood erythrocytes automated count (number/volume) 4.28 10*6/uL 4.35-5.85 Venous blood hemoglobin measurement (mass/volume) 13.7 g/dL 13.3-17.7 Blood hematocrit (volume fraction) 40 % 40-54 Automated erythrocyte mean corpuscular volume 94 [ foz_us] 80-99 Automated erythrocyte mean corpuscular h emoglobin (mass per erythrocyte) 32 pg 25-34 Automated erythrocyte mean corpuscular h emoglobin concentration measurement (mass/volume) 34 g/dL 32-36 Automated erythrocyte distribution width ratio 13. 5 % 10.0- 14.5 Automated blood platelet count (count/volume) 164 10*3/uL [...] 10*3 1.0-4.0 Blood monocytes automated count (number/volume) 0. 9 10*3 0.0-1.0 Automated eosinophil count 0.8 10*3/uL 0 .0-0.3 Automated blood basophil count (count/volume) 0.0 10*3/uL 0.0-0.1 Comprehensive metabolic panel - 10/19/16 14:55 Serum or plasma sodium measurement (moles/volume) 136 mmol/L 135-145 Serum or plasma potassium measurement (moles/volume) 4.5 mmol/L 3.6-5.0 Serum or plasma chloride measurement (moles/volume) 98 mmol/L 98-107 Carbon dioxide 22 mmol/L 21-32 Serum or plasma anion gap determination (moles/volume) 16 mmol/L 5-14 Serum or plasma urea nitrogen measurement (mass/volume ) 16 mg/dL 7-18 Serum or plasma creatinine measurement (mass/volume) 0.98 mg/dL 0.60-1.30 Serum or plasma urea nitrogen/creatinine mass ratio 16 NRG Serum or plasma creatinine measurement w ith calculation of estimated glomerular filtration rate > NRG Serum or plasma glucose measurement (mass/volume) 165 mg/dL 70-105 Serum or plasma calcium measurement (mass/volume) 9.4 mg/dL 8.5-10.1 Serum or plasma total bilirubin measurement (mass/volu me) 0.6 mg/dL 0.1-1.0 Serum or plasma alkaline phosphatase jose r surement (enzymatic activity/volume) 48 U/L 40-136 Serum or plasma aspartate aminotransfera se measurement (enzymatic activity/volume) 18 U/L 5-34 Serum or plasma alanine aminotransferase measurement (enzymatic activity/volume) 22 U/L 0-55 Serum or plasma protein measurement (mass/volume) 7.0 g/dL 6.4-8.2 Serum or plasma albumin measurement (mass/volume) 4.2 g/dL 3.2-4.5 Serum or plasma lithium measurement (mol es/volume) - 10/19/16 14:55 BNP level 135.7 pg/mL <100.0 Complete blood count (CBC) with automate d white blood cell (WBC) differential - 12/11/16 14:08 Blood leukocytes automated count (number/volume) 8.4 10*3/uL 4.3-11.0 Blood erythrocytes automated count (number/volume) 4.03 10*6/uL 4.35-5.85 Venous blood hemoglobin measurement (mass/volume) 12.9 g/dL 13.3-17.7 Blood hematocrit (volume fraction) 38 % 40-54 Automated erythrocyte mean corpuscular volume 94 [ foz_us] 80-99 Automated erythrocyte mean corpuscular h emoglobin (mass per erythrocyte) 32 pg 25-34 Automated erythrocyte mean corpuscular h emoglobin concentration measurement (mass/volume) 34 g/dL 32-36 Automated erythrocyte distribution width ratio 13. 4 % 10.0- 14.5 Automated blood platelet count (count/volume) 176 10*3/uL [...] 10*3 1.0-4.0 Blood monocytes automated count (number/volume) 0. 7 10*3 0.0-1.0 Automated eosinophil count 0.4 10*3/uL 0 .0-0.3 Automated blood basophil count (count/volume) 0.0 10*3/uL 0.0-0.1 Whole blood basic metabolic panel - 11/24 11/09 14:08 Serum or plasma sodium measurement (moles/volume) 133 mmol/L 135-145 Serum or plasma potassium measurement (moles/volume) 4.2 mmol/L 3.6-5.0 Serum or plasma chloride measurement (moles/volume) 97 mmol/L 98-107 Carbon dioxide 27 mmol/L 21-32 Serum or plasma anion gap determination (moles/volume) 9 mmol/L 5-14 Serum or plasma urea nitrogen measurement (mass/volume ) 13 mg/dL 7-18 Serum or plasma creatinine measurement (mass/volume) 0.85 mg/dL 0.60-1.30 Serum or plasma urea nitrogen/creatinine mass ratio 15 NRG Serum or plasma creatinine measurement w ith calculation of estimated glomerular filtration rate > NRG Serum or plasma glucose measurement (mass/volume) 178 mg/dL 70-105 Serum or plasma calcium measurement (mass/volume) 9.3 mg/dL 8.5-10.1 Methicillin resistant Staphylococcus aur eus (MRSA) screening culture - 12/11/16 14:08 Methicillin resistant Staphylococcus aureus (MRSA) scr eening culture NEG NRG Capillary blood glucose measurement by g lucometer (mass/volume) - 12/14/16 07:10 Capillary blood glucose measurement by glucometer (mas s/volume) 186 mg/dL 70-110 Complete urinalysis with reflex to cultu re - 05/08/18 12:15 Urine color determination YELLOW NRG Urine clarity determination CLEAR NR G Urine pH measurement by test strip 6 5-9 Specific gravity of urine by test strip 1.015 1.016-1.022 Urine protein assay by test strip, semi-quantitative 1+ NEGATIVE Urine glucose detection by automated test strip NE GATIVE NEGATIVE Erythrocytes detection in urine sediment by light micr oscopy NEGATIVE NEGATIVE Urine ketones detection by automated test strip NE GATIVE NEGATIVE Urine nitrite detection by test strip NEGATIVE NEGATIVE Urine total bilirubin detection by test strip NEGA TIVE NEGATIVE Urine urobilinogen measurement by automated test strip (mass/volume) NORMAL NORMAL Urine leukocyte esterase detection by dipstick NEG ATIVE NEGATIVE Automated urine sediment erythrocyte cou nt by microscopy (number/high power field) NONE NRG Automated urine sediment leukocyte count by microscopy (number/high power field) NONE NRG Bacteria detection in urine sediment by light microsco py NEGATIVE NRG Crystals detection in urine sediment by light microsco py NONE NRG Casts detection in urine sediment by light microscopy NONE NRG Mucus detection in urine sediment by light microscopy NEGATIVE NRG Complete urinalysis with reflex to culture NO NRG Methicillin resistant Staphylococcus aur eus (MRSA) screening culture - 05/08/18 12:15 Methicillin resistant Staphylococcus aureus (MRSA) scr eening culture NEG NRG Automated blood complete blood count (he mogram) panel - 05/08/18 12:25 Blood leukocytes automated count (number/volume) 8.9 10*3/uL 4.3-11.0 Blood erythrocytes automated count (number/volume) 4.33 10*6/uL 4.35-5.85 Venous blood hemoglobin measurement (mass/volume) 13.7 g/dL 13.3-17.7 Blood hematocrit (volume fraction) 40 % 40-54 Automated erythrocyte mean corpuscular volume 92 [ foz_us] 80-99 Automated erythrocyte mean corpuscular h emoglobin (mass per erythrocyte) 32 pg 25-34 Automated erythrocyte mean corpuscular h emoglobin concentration measurement (mass/volume) 34 g/dL 32-36 Automated erythrocyte distribution width ratio 13. 8 % 10.0- 14.5 Automated blood platelet count (count/volume) 201 10*3/uL 130-400 Automated blood platelet mean volume measurement 10.9 [foz_us] 7.4-10.4 PT panel in platelet poor plasma by coag ulation assay - 05/08/18 12:25 Prothrombin time (PT) in platelet poor plasma by coagu lation assay 13.5 s 12.2-14.7 INR in platelet poor plasma or blood by coagulation as say 1.0 0.8-1.4 Activated partial thromboplastin time (a PTT) in platelet poor plasma bycoagulation assay - 05/08/18 12:25 Activated partial thromboplastin time (a PTT) in platelet poor plasma bycoagulation assay 34 s 24-35 Comprehensive metabolic panel - 05/08/18 12:25 Serum or plasma sodium measurement (moles/volume) 134 mmol/L 135-145 Serum or plasma potassium measurement (moles/volume) 4.2 mmol/L 3.6-5.0 Serum or plasma chloride measurement (moles/volume) 97 mmol/L 98-107 Carbon dioxide 26 mmol/L 21-32 Serum or plasma anion gap determination (moles/volume) 11 mmol/L 5-14 Serum or plasma urea nitrogen measurement (mass/volume ) 13 mg/dL 7-18 Serum or plasma creatinine measurement (mass/volume) 0.92 mg/dL 0.60-1.30 Serum or plasma urea nitrogen/creatinine mass ratio 14 NRG Serum or plasma creatinine measurement w ith calculation of estimated glomerular filtration rate > NRG Serum or plasma glucose measurement (mass/volume) 158 mg/dL 70-105 Serum or plasma calcium measurement (mass/volume) 9.7 mg/dL 8.5-10.1 Serum or plasma total bilirubin measurement (mass/volu me) 0.8 mg/dL 0.1-1.0 Serum or plasma alkaline phosphatase jose r surement (enzymatic activity/volume) 57 U/L 40-136 Serum or plasma aspartate aminotransfera se measurement (enzymatic activity/volume) 22 U/L 5-34 Serum or plasma alanine aminotransferase measurement (enzymatic activity/volume) 22 U/L 0-55 Serum or plasma protein measurement (mass/volume) 7.5 g/dL 6.4-8.2 Serum or plasma albumin measurement (mass/volume) 4.5 g/dL 3.2-4.5 CALCIUM CORRECTED 9.3 mg/dL 8.5-10.1 Lipid 1996 panel - 05/08/18 12:25 Serum or plasma triglyceride measurement (mass/volume) 78 mg/dL <150 Serum or plasma cholesterol measurement (mass/volume) 107 mg/dL < 200 Serum or plasma cholesterol in HDL measurement (mass/v olume) 53 mg/dL 40-60 Cholesterol in LDL [mass/volume] in serum or plasma by direct assay 34 mg/dL 1-129 Serum or plasma cholesterol in VLDL measurement (mass/ volume) 16 mg/dL 5-40 Complete blood count (CBC) with automate d white blood cell (WBC) differential - 03/19/19 17:05 Blood leukocytes automated count (number/volume) 8.5 10*3/uL 4.3-11.0 Blood erythrocytes automated count (number/volume) 3.92 10*6/uL 4.35-5.85 Venous blood hemoglobin measurement (mass/volume) 12.3 g/dL 13.3-17.7 Blood hematocrit (volume fraction) 37 % 40-54 Automated erythrocyte mean corpuscular volume 94 [ foz_us] 80-99 Automated erythrocyte mean corpuscular h emoglobin (mass per erythrocyte) 31 pg 25-34 Automated erythrocyte mean corpuscular h emoglobin concentration measurement (mass/volume) 34 g/dL 32-36 Automated erythrocyte distribution width ratio 13. 7 % 10.0- 14.5 Automated blood platelet count (count/volume) 200 10*3/uL 130-400 Automated blood platelet mean volume measurement 11.2 [foz_us] 7.4-10.4 Automated blood neutrophils/100 leukocytes 66 % 42-75 Automated blood lymphocytes/100 leukocytes 20 % 12-44 Blood monocytes/100 leukocytes 10 % 0-12 Automated blood eosinophils/100 leukocytes 5 % 0-10 Automated blood basophils/100 leukocytes 0 % 0-10 Blood neutrophils automated count (number/volume) 5.6 10*3 1.8-7.8 Blood lymphocytes automated count (number/volume) 1.7 10*3 1.0-4.0 Blood monocytes automated count (number/volume) 0. 8 10*3 0.0-1.0 Automated eosinophil count 0.4 10*3/uL 0 .0-0.3 Automated blood basophil count (count/volume) 0.0 10*3/uL 0.0-0.1 PT panel in platelet poor plasma by coag ulation assay - 03/19/19 17:05 Prothrombin time (PT) in platelet poor plasma by coagu lation assay 13.5 s 12.2-14.7 INR in platelet poor plasma or blood by coagulation as say 1.0 0.8-1.4 Comprehensive metabolic panel - 03/19/19 17:05 Serum or plasma sodium measurement (moles/volume) 135 mmol/L 135-145 Serum or plasma potassium measurement (moles/volume) 4.5 mmol/L 3.6-5.0 Serum or plasma chloride measurement (moles/volume) 101 mmol/L 98-107 Carbon dioxide 18 mmol/L 21-32 Serum or plasma anion gap determination (moles/volume) 16 mmol/L 5-14 Serum or plasma urea nitrogen measurement (mass/volume ) 13 mg/dL 7-18 Serum or plasma creatinine measurement (mass/volume) 0.97 mg/dL 0.60-1.30 Serum or plasma urea nitrogen/creatinine mass ratio 13 NRG Serum or plasma creatinine measurement w ith calculation of estimated glomerular filtration rate > NRG Serum or plasma glucose measurement (mass/volume) 161 mg/dL 70-105 Serum or plasma calcium measurement (mass/volume) 9.1 mg/dL 8.5-10.1 Serum or plasma total bilirubin measurement (mass/volu me) 0.4 mg/dL 0.1-1.0 Serum or plasma alkaline phosphatase jose r surement (enzymatic activity/volume) 55 U/L 40-136 Serum or plasma aspartate aminotransfera se measurement (enzymatic activity/volume) 26 U/L 5-34 Serum or plasma alanine aminotransferase measurement (enzymatic activity/volume) 16 U/L 0-55 Serum or plasma protein measurement (mass/volume) 7.4 g/dL 6.4-8.2 Serum or plasma albumin measurement (mass/volume) 4.1 g/dL 3.2-4.5 CALCIUM CORRECTED 9.0 mg/dL 8.5-10.1 RED CELLS LEUKO REDUCED AS1 - 03/19/19 1 7:34 RED CELLS LEUKO REDUCED AS1 N OT AVAILABLE NRG Blood type T Indirect antibody screen pa radhika - 03/19/19 17:34 WRISTBAND NUMBER [id number] NRG ABO+Rh group OP NRG Blood group antibody screen NEGATIVE NR G Capillary blood glucose measurement by g lucometer (mass/volume) - 03/19/19 20:51 Capillary blood glucose measurement by glucometer (mas s/volume) 224 mg/dL 70-110 Complete blood count (CBC) with automate d white blood cell (WBC) differential - 03/20/19 05:01 Blood leukocytes automated count (number/volume) 6.3 10*3/uL 4.3-11.0 Blood erythrocytes automated count (number/volume) 2.86 10*6/uL 4.35-5.85 Venous blood hemoglobin measurement (mass/volume) 9.0 g/dL 13.3-17.7 Blood hematocrit (volume fraction) 27 % 40-54 Automated erythrocyte mean corpuscular volume 94 [ foz_us] 80-99 Automated erythrocyte mean corpuscular h emoglobin (mass per erythrocyte) 31 pg 25-34 Automated erythrocyte mean corpuscular h emoglobin concentration measurement (mass/volume) 33 g/dL 32-36 Automated erythrocyte distribution width ratio 13. 4 % 10.0- 14.5 Automated blood platelet count (count/volume) 153 10*3/uL 130-400 Automated blood platelet mean volume measurement 11.4 [foz_us] 7.4-10.4 Automated blood neutrophils/100 leukocytes 65 % 42-75 Automated blood lymphocytes/100 leukocytes 20 % 12-44 Blood monocytes/100 leukocytes 12 % 0-12 Automated blood eosinophils/100 leukocytes 3 % 0-10 Automated blood basophils/100 leukocytes 0 % 0-10 Blood neutrophils automated count (number/volume) 4.1 10*3 1.8-7.8 Blood lymphocytes automated count (number/volume) 1.3 10*3 1.0-4.0 Blood monocytes automated count (number/volume) 0. 7 10*3 0.0-1.0 Automated eosinophil count 0.2 10*3/uL 0 .0-0.3 Automated blood basophil count (count/volume) 0.0 10*3/uL 0.0-0.1 Comprehensive metabolic panel - 03/20/19 05:01 Serum or plasma sodium measurement (moles/volume) 138 mmol/L 135-145 Serum or plasma potassium measurement (moles/volume) 3.9 mmol/L 3.6-5.0 Serum or plasma chloride measurement (moles/volume) 105 mmol/L 98-107 Carbon dioxide 22 mmol/L 21-32 Serum or plasma anion gap determination (moles/volume) 11 mmol/L 5-14 Serum or plasma urea nitrogen measurement (mass/volume ) 15 mg/dL 7-18 Serum or plasma creatinine measurement (mass/volume) 0.98 mg/dL 0.60-1.30 Serum or plasma urea nitrogen/creatinine mass ratio 15 NRG Serum or plasma creatinine measurement w ith calculation of estimated glomerular filtration rate > NRG Serum or plasma glucose measurement (mass/volume) 135 mg/dL 70-105 Serum or plasma calcium measurement (mass/volume) 8.4 mg/dL 8.5-10.1 Serum or plasma total bilirubin measurement (mass/volu me) 0.5 mg/dL 0.1-1.0 Serum or plasma alkaline phosphatase jose r surement (enzymatic activity/volume) 37 U/L 40-136 Serum or plasma aspartate aminotransfera se measurement (enzymatic activity/volume) 13 U/L 5-34 Serum or plasma alanine aminotransferase measurement (enzymatic activity/volume) 12 U/L 0-55 Serum or plasma protein measurement (mass/volume) 5.3 g/dL 6.4-8.2 Serum or plasma albumin measurement (mass/volume) 3.2 g/dL 3.2-4.5 CALCIUM CORRECTED 9.0 mg/dL 8.5-10.1 Capillary blood glucose measurement by g lucometer (mass/volume) - 03/20/19 14:14 Capillary blood glucose measurement by glucometer (mas s/volume) 220 mg/dL 70-110 Whole blood hemoglobin and hematocrit pa radhika - 03/20/19 14:23 Venous blood hemoglobin measurement (mass/volume) 8.7 g/dL 13.3-17.7 Blood hematocrit (volume fraction) 26 % 40-54 Capillary blood glucose measurement by g lucometer (mass/volume) - 03/20/19 16:11 Capillary blood glucose measurement by glucometer (mas s/volume) 194 mg/dL 70-110 Capillary blood glucose measurement by g lucometer (mass/volume) - 03/20/19 20:37 Capillary blood glucose measurement by glucometer (mas s/volume) 217 mg/dL 70-110 Whole blood basic metabolic panel - 02/24 10/11 04:35 Serum or plasma sodium measurement (moles/volume) 138 mmol/L 135-145 Serum or plasma potassium measurement (moles/volume) 4.0 mmol/L 3.6-5.0 Serum or plasma chloride measurement (moles/volume) 106 mmol/L 98-107 Carbon dioxide 22 mmol/L 21-32 Serum or plasma anion gap determination (moles/volume) 10 mmol/L 5-14 Serum or plasma urea nitrogen measurement (mass/volume ) 10 mg/dL 7-18 Serum or plasma creatinine measurement (mass/volume) 0.86 mg/dL 0.60-1.30 Serum or plasma urea nitrogen/creatinine mass ratio 12 NRG Serum or plasma creatinine measurement w ith calculation of estimated glomerular filtration rate > NRG Serum or plasma glucose measurement (mass/volume) 138 mg/dL 70-105 Serum or plasma calcium measurement (mass/volume) 7.9 mg/dL 8.5-10.1 Automated blood complete blood count (he mogram) panel - 03/21/19 04:55 Blood leukocytes automated count (number/volume) 6.8 10*3/uL 4.3-11.0 Blood erythrocytes automated count (number/volume) 2.08 10*6/uL 4.35-5.85 Venous blood hemoglobin measurement (mass/volume) 6.5 g/dL 13.3-17.7 Blood hematocrit (volume fraction) 20 % 40-54 Automated erythrocyte mean corpuscular volume 95 [ foz_us] 80-99 Automated erythrocyte mean corpuscular h emoglobin (mass per erythrocyte) 31 pg 25-34 Automated erythrocyte mean corpuscular h emoglobin concentration measurement (mass/volume) 33 g/dL 32-36 Automated erythrocyte distribution width ratio 13. 6 % 10.0- 14.5 Automated blood platelet count (count/volume) 131 10*3/uL 130-400 Automated blood platelet mean volume measurement 10.9 [foz_us] 7.4-10.4 Capillary blood glucose measurement by g lucometer (mass/volume) - 03/21/19 05:13 Capillary blood glucose measurement by glucometer (mas s/volume) 152 mg/dL 70-110 Capillary blood glucose measurement by g lucometer (mass/volume) - 03/21/19 11:09 Capillary blood glucose measurement by glucometer (mas s/volume) 183 mg/dL 70-110 Capillary blood glucose measurement by g lucometer (mass/volume) - 03/21/19 15:42 Capillary blood glucose measurement by glucometer (mas s/volume) 183 mg/dL 70-110 Whole blood hemoglobin and hematocrit pa radhika - 03/21/19 16:59 Venous blood hemoglobin measurement (mass/volume) 9.5 g/dL 13.3-17.7 Blood hematocrit (volume fraction) 28 % 40-54 Capillary blood glucose measurement by g lucometer (mass/volume) - 03/21/19 20:42 Capillary blood glucose measurement by glucometer (mas s/volume) 161 mg/dL 70-110 Whole blood hemoglobin and hematocrit pa radhika - 03/22/19 04:55 Venous blood hemoglobin measurement (mass/volume) 8.9 g/dL 13.3-17.7 Blood hematocrit (volume fraction) 26 % 40-54 Capillary blood glucose measurement by g lucometer (mass/volume) - 03/22/19 06:11 Capillary blood glucose measurement by glucometer (mas s/volume) 145 mg/dL 70-110 Capillary blood glucose measurement by g lucometer (mass/volume) - 03/22/19 11:10 Capillary blood glucose measurement by glucometer (mas s/volume) 171 mg/dL 70-110 Capillary blood glucose measurement by g lucometer (mass/volume) - 04/29/19 13:25 Capillary blood glucose measurement by glucometer (mas s/volume) 173 mg/dL 70-110 Complete blood count (CBC) with automate d white blood cell (WBC) differential - 08/25/19 15:00 Blood leukocytes automated count (number/volume) 7.6 10*3/uL 4.3-11.0 Blood erythrocytes automated count (number/volume) 3.75 10*6/uL 4.35-5.85 Venous blood hemoglobin measurement (mass/volume) 11.2 g/dL 13.3-17.7 Blood hematocrit (volume fraction) 33 % 40-54 Automated erythrocyte mean corpuscular volume 88 [ foz_us] 80-99 Automated erythrocyte mean corpuscular h emoglobin (mass per erythrocyte) 30 pg 25-34 Automated erythrocyte mean corpuscular h emoglobin concentration measurement (mass/volume) 34 g/dL 32-36 Automated erythrocyte distribution width ratio 15. 3 % 10.0- 14.5 Automated blood platelet count (count/volume) 215 10*3/uL 130-400 Automated blood platelet mean volume measurement 9.9 [foz_us] 7.4-10.4 Automated blood neutrophils/100 leukocytes 67 % 42-75 Automated blood lymphocytes/100 leukocytes 15 % 12-44 Blood monocytes/100 leukocytes 14 % 0-12 Automated blood eosinophils/100 leukocytes 3 % 0-10 Automated blood basophils/100 leukocytes 0 % 0-10 Blood neutrophils automated count (number/volume) 5.0 10*3 1.8-7.8 Blood lymphocytes automated count (number/volume) 1.1 10*3 1.0-4.0 Blood monocytes automated count (number/volume) 1. 1 10*3 0.0-1.0 Automated eosinophil count 0.3 10*3/uL 0 .0-0.3 Automated blood basophil count (count/volume) 0.0 10*3/uL 0.0-0.1 Comprehensive metabolic panel - 08/25/19 15:00 Serum or plasma sodium measurement (moles/volume) 130 mmol/L 135-145 Serum or plasma potassium measurement (moles/volume) 4.8 mmol/L 3.6-5.0 Serum or plasma chloride measurement (moles/volume) 96 mmol/L 98-107 Carbon dioxide 23 mmol/L 21-32 Serum or plasma anion gap determination (moles/volume) 11 mmol/L 5-14 Serum or plasma urea nitrogen measurement (mass/volume ) 17 mg/dL 7-18 Serum or plasma creatinine measurement (mass/volume) 0.85 mg/dL 0.60-1.30 Serum or plasma urea nitrogen/creatinine mass ratio 20 NRG Serum or plasma creatinine measurement w ith calculation of estimated glomerular filtration rate > NRG Serum or plasma glucose measurement (mass/volume) 116 mg/dL 70-105 Serum or plasma calcium measurement (mass/volume) 9.1 mg/dL 8.5-10.1 Serum or plasma total bilirubin measurement (mass/volu me) 0.4 mg/dL 0.1-1.0 Serum or plasma alkaline phosphatase jose r surement (enzymatic activity/volume) 53 U/L 40-136 Serum or plasma aspartate aminotransfera se measurement (enzymatic activity/volume) 16 U/L 5-34 Serum or plasma alanine aminotransferase measurement (enzymatic activity/volume) 16 U/L 0-55 Serum or plasma protein measurement (mass/volume) 6.6 g/dL 6.4-8.2 Serum or plasma albumin measurement (mass/volume) 3.8 g/dL 3.2-4.5 CALCIUM CORRECTED 9.3 mg/dL 8.5-10.1 Serum or plasma troponin i.cardiac measu rement (mass/volume) - 08/25/19 15:00 Serum or plasma troponin i.cardiac measurement (mass/v olume) < ng/mL <0.028 THYROID STIMULATING HORMONE - 08/25/19 1 5:00 THYROID STIMULATING HORMONE 1.38 u[iU]/mL 0.35-4.94 Serum or plasma thyroxine (T4) free danny urement (mass/volume) - 08/25/19 15:00 Serum or plasma thyroxine (T4) free measurement (mass/ volume) 1.06 ng/dL 0.70-1.48 Serum or plasma lithium measurement (mol es/volume) - 08/25/19 15:00 BNP PT 88.5 pg/mL <100.0 Complete urinalysis with reflex to cultu re - 08/25/19 15:55 Urine color determination YELLOW NRG Urine clarity determination CLEAR NR G Urine pH measurement by test strip 7.0 5-9 Specific gravity of urine by test strip 1.015 1.016-1.022 Urine protein assay by test strip, semi-quantitative NEGATIVE NEGATIVE Urine glucose detection by automated test strip NE GATIVE NEGATIVE Erythrocytes detection in urine sediment by light micr oscopy TRACE-I NEGATIVE Urine ketones detection by automated test strip NE GATIVE NEGATIVE Urine nitrite detection by test strip NEGATIVE NEGATIVE Urine total bilirubin detection by test strip NEGA TIVE NEGATIVE Urine urobilinogen measurement by automated test strip (mass/volume) 0.2 mg/dL < = 1.0 Urine leukocyte esterase detection by dipstick NEG ATIVE NEGATIVE Automated urine sediment erythrocyte cou nt by microscopy (number/high power field) NONE NRG Automated urine sediment leukocyte count by microscopy (number/high power field) NONE NRG Bacteria detection in urine sediment by light microsco py NEGATIVE NRG Squamous epithelial cells detection in u rine sediment by light microscopy NONE NRG Crystals detection in urine sediment by light microsco py NONE NRG Casts detection in urine sediment by light microscopy NONE NRG Mucus detection in urine sediment by light microscopy NEGATIVE NRG Complete urinalysis with reflex to culture NO NRG Encounters ACCT No. Visit Date/Time Discharge Status Pt. Type Provider Facility Loc./Unit Complaint [id number] 04/09/2014 14:05:26 04/09/2014 23:59: 59 CLS Outpatient Mily Durham [id number] 12/04/2013 14:22:48 12/04/2013 23:59: 59 CLS Outpatient Mily Durham [id number] 05/28/2013 09:20:03 05/28/2013 23:59: 59 CLS Outpatient Erik Melendez [id number] 04/22/2013 15:25:29 04/22/2013 23:59: 59 CLS Outpatient Erik Melendez [id number] 08/25/2019 14:21:00 16:53:00 DIS Outpatient CARMEN GRIMM FLOORPERSON Via [facility] ER SOA [id number] 04/29/2019 13:00:00 16:50:00 DIS Outpatient JANICE SANCHEZ DO [facility] ENDO LOWER GI BLEED [id number] 04/22/2019 05:37:00 12:14:00 DIS Outpatient JANICE SANCHEZ DO [facility] PREOP COLONOSCOPY [id number] 03/20/2019 15:08:00 15:55:00 DIS Inpatient PIERCELUKAS ROBERSON DO, V ia [facility] 4TH GI BLEED,DIVERTICULITIS [id number] 05/08/2018 11:46:00 18:55:00 DIS Outpatient DEWEY CARLOS MD [facility] CATH ABD STRESS,CAD,DM,HTN,H LP [id number] 05/01/2018 07:15:00 23:59:59 CLS Outpatient DEWEY CARLOS MD Via [facility] CARD CAD [id number] 04/29/2018 12:47:00 23:59:59 CLS Outpatient DEWEY CARLOS MD [facility] CARD CAD [id number] 04/17/2018 15:00:00 16:04:00 DIS Emergency CARMEN GRIMM FLOORPERSON Via [facility] ER HEAD INJ [id number] 04/02/2018 14:09:00 23:59:59 CLS Outpatient CELINE BINGHAM FLOORPERSON Via [facility] CARD BRADYCARDIA [id number] 03/27/2018 09:54:00 23:59:59 CLS Outpatient CELINE BINGHAM FLOORPERSON Via [facility] RAD PNEUMONIA [id number] 01/16/2018 13:35:00 14:25:00 DIS Outpatient ANNA CABAN MD [facility] REHAB R SHOULDER PAIN [id number] 12/19/2017 13:27:00 23:59:59 CLS Outpatient ANNA CABAN MD [facility] REHAB R SHOULDER PAIN [id number] 07/12/2017 10:00:00 23:59:59 CLS Outpatient CELINE BINGHAM APRN Via [facility] DSME TYPE 2 DIABETES [id number] 12/14/2016 06:53:00 017 12:40:00 DIS Outpatient MAIA REYES MD [facility] SDC SCALP LESION [id number] 12/11/2016 13:39:00 017 14:20:00 DIS Outpatient MAIA REYES MD [facility] PREOP SCALP LESION [id number] 11/06/2016 13:01:00 23:59:59 CLS Outpatient CELINE BINGHAM APRN [facility] RT FATIGUE,SOB [id number] 10/19/2016 14:24:00 017 23:59:59 CLS Outpatient ANNA CABAN MD [facility] RAD FATIGUE,LE EDEMA,SOB [id number] 02/28/2016 08:59:00 016 23:59:59 CLS Outpatient CELINE BINGHAM APRN [facility] RAD ABNORMAL FINDIN G ON XRAY, AORTA CALCIFICATION [id number] 02/21/2016 08:37:00 016 23:59:59 CLS Outpatient CELINE BINGHAM APRN [facility] RAD LOW BACK PAIN [id number] 02/14/2016 14:01:00 016 23:59:59 CLS Outpatient CELINE BINGHAM APRN [facility] RAD ABNORMAL LUNG S OUNDS [id number] 04/12/2015 19:12:00 20:55:00 DIS Emergency CARMEN GRIMM APRN [facility] ER FALL;L RIB PAIN [id number] 02/09/2014 09:43:00 12:27:00 DIS Outpatient ISABEL FINN MD [facility] CR AMI,STENT,LAD,STAN [id number] 01/22/2014 14:50:00 23:59:59 CLS Outpatient ISABEL FINN MD [facility] CARD SYNCOPE [id number] 01/18/2014 09:37:00 12:46:00 DIS Emergency SHANTHI PRECIADO MD [facility] ER MULTIPLE COMPLAINTS [id number] 11/28/2013 11:25:00 00:01:00 DIS Outpatient ISABEL FINN MD [facility] CR AMI STENT [id number] 08/25/2013 11:25:00 13:44:00 DIS Emergency MUSA CASILLAS, CHETAN K Vi a [facility] ER CONSTIPATION [id number] 08/16/2013 19:58:00 20:57:00 DIS Emergency RADHIKA TRENT MD [facility] ER LOWER BACK PAIN [id number] 03/24/2019 09:47:00 Document Registration [id number] 04/17/2018 16:06:00 Document Registration [id number] 01/14/2014 09:00:00 Document Registration [id number] 07/06/2012 13:52:00 Document Registration [id number] 03/29/2012 07:48:00 Document Registration [id number] 03/28/2012 07:26:00 Document Registration [id number] 12/07/2010 08:58:00 Document Registration
== END 2019-09-01 12:45 | disposition short-term general hospital (02) ==
LOC: EDUNIT# 10:18 → ER 10:19
DX: S06.9X0A Unspecified intracranial injury without loss of consciousness, initial encounter (principal); S01.81XA Laceration without foreign body of other part of head, initial encounter; S00.431A Contusion of right ear, initial encounter; I10 Essential (primary) hypertension; E78.00 Pure hypercholesterolemia, unspecified; E11.40 Type 2 diabetes mellitus with diabetic neuropathy, unspecified; Z87.891 Personal history of nicotine dependence; Z79.82 Long term (current) use of aspirin; Z85.828 Personal history of other malignant neoplasm of skin; Z23 Encounter for immunization; Z79.84 Long term (current) use of oral hypoglycemic drugs; W01.198A Fall on same level from slipping, tripping and stumbling with subsequent striking against other object, initial encounter; Y92.009 Unspecified place in unspecified non-institutional (private) residence as the place of occurrence of the external cause
CPT/HCPCS: 12052; 36415; 70450; 72125; 80053; 85025; 85610; 90715

== ENCOUNTER → 2020-03-11 | Outpatient (CLI) | payer MEDICARE ==
[~2020-03-11] MED LIST changes: +AMLO-250 PO; +AMLO-251 PO; -AMLO10TA7 PO; -AMLO5TAB9 PO; +ASPI-1238 PO; -ASPI-983 PO
== END ==
LOC: CARD 08:44
PROVIDERS: ATTEND Internal Medicine Cardiovascular Disease
DX: I49.1 Atrial premature depolarization (principal); I07.1 Rheumatic tricuspid insufficiency
CPT/HCPCS: 93306

== ENCOUNTER → 2020-06-28 | Outpatient (CLI) | payer MEDICARE ==
[~2020-06-28] MED LIST changes: -LISI-552 PO; +LISI20TA26 PO
--- NOTE | 2020-06-28 16:12 | Diagnostic Imaging Report ---
EXAMINATION: Chest 2 view HISTORY: Cough. COMPARISON: 08/25/2019. FINDINGS: There are patchy interstitial and airspace opacities in both lungs. No pleural effusion or pneumothorax. Heart size is normal. IMPRESSION: 1. Mild patchy interstitial and airspace opacities throughout both lungs which may represent edema or pneumonia. Dictated by: Dictated on workstation # [id number]
== END ==
LOC: RAD 15:32
PROVIDERS: ATTEND Internal Medicine
DX: J84.9 Interstitial pulmonary disease, unspecified (principal)
CPT/HCPCS: 71046

== ENCOUNTER 2020-07-04 21:55 | Inpatient (IN) | payer MEDICARE ==
[~2020-07-04] VITALS: Ht 177.8 cm; Wt 64.1 kg
[2020-07-04] MEDS ORDERED: LACTATED RINGERS 1,000 ML IV ONE (22:15)
[2020-07-04] MEDS ORDERED: cefTRIAXone FOR IV USE 1,000 MG in WATER (STERILE) FOR INJECTION 10 ML IV ONE (22:15)
[2020-07-04] MEDS ORDERED: metroNIDAZOLE 500MG/100ML IVPB 100 ML IV ONE (22:15)
--- NOTE | 2020-07-04 22:18 | ED Abdominal Pain ---
General Stated Complaint: STOMACH PAIN,SHOULDER PAIN,NOT ABLE TO EAT Source of Information: Patient, Family Exam Limitations: No Limitations History of Present Illness Date Seen by Provider: Jul 04, 2020 Time Seen by Provider: 22:00 Initial Comments Patient to the ER by private conveyance with chief complaint of low abdominal pain bilaterally not radiating starting this morning. He took some Tums that did not help. He rates it as a 4-5 out of 10. He has a history of diverticulit is. He had a colonoscopy a year and a half ago. He has plans to get an EGD with Dr. Santoro because he is had some difficulty with swallowing lately. This week he was diagnosed with pneumonia by chest x-ray at Dr. Caban's office. No Covid or influenza swabs. He has had chills all day today. He is on antibiotics. He had a bowel movement earlier today which was normal, formed. Allergies and Home Medications Allergies Coded Allergies: No Known Drug Allergies (Unverified , 04/22/19) Home Medications Amlodipine Besylate 10 Mg Tablet, 10 MG PO DAILY, (Reported) Aspirin 81 Mg Tablet.dr, 81 MG PO DAILY, (Reported) Betamethasone/Propylene Glyc 15 Gm Cream..g., TOP MoWeFr, (Reported) Carvedilol 12.5 Mg Tablet, 12.5 MG PO BID, (Reported) Hydrochlorothiazide 12.5 Mg Capsule, 12.5 MG PO DAILY, (Reported) Lisinopril 20 Mg Tablet, 20 MG PO DAILY, (Reported) Metformin HCl 1,000 Mg Tablet, 1,000 MG PO BID, (Reported) Metronidazole 500 Mg Tablet, 500 MG PO TID Prescribed by: PAWAN ANDRES on 03/22/19 1431 Multivit-Min/Hrb Cb121 1 Each Capsule, 2 CAP PO DAILY, (Reported) Multivitamin 1 Each Capsule, 1 CAP PO DAILY, (Reported) [place]-3/Dha/Epa/Fish Oil 1 Each Capsule.dr, 1,200 MG PO DAILY, (Reported) Omeprazole 40 Mg Capsule.dr, 40 MG PO DAILY, (Reported) Rosuvastatin Calcium 5 Mg Tablet, 5 MG PO DAILY, (Reported) Ubidecarenone 100 Mg Capsule, 100 MG PO DAILY, (Reported) Patient Home Medication List Home Medication List Reviewed: Yes Review of Systems Review of Systems Constitutional: No chills, No diaphoresis EENTM: No Blurred Vision, No Double Vision Respiratory: Cough, Shortness of Air Cardiovascular: Denies Chest Pain, Denies Lightheadedness Gastrointestinal: See HPI; Denies Abdomen Distended; Abdominal Pain; Denies Constipated, Denies Diarrhea, Denies Nausea Genitourinary: Denies Burning, Denies Discharge Musculoskeletal: No back pain, No joint pain All Other Systems Reviewed Negative Unless Noted: Yes Past Qndpmfs-Zlapvu-Sqsgrp Hx Patient Social History Alcohol Use: Occasionally Uses Alcohol Beverage of Choice: Wine Drug of Choice: Denies Smoking Status: Former Smoker Type Used: Pipe Former Smoker, Quit: Dec 11, 1977 2nd Hand Smoke Exposure: No Recent Hopitalizations: No Immunizations Up To Date Tetanus Booster (TDap): Unknown Date of Pneumonia Vaccine: Mar 29, 2016 Date of Influenza Vaccine: Jan 08, 2019 Seasonal Allergies Seasonal Allergies: No Past Medical History Surgeries: Yes (CYST REMOVED FROM BACK OF NECK, heart cath, colonoscopy) Tonsillectomy, Vasectomy Respiratory: No Currently Using CPAP: No Currently Using BIPAP: No Cardiac: Yes (STENT PLACED x2) High Cholesterol, Hypertension, Irregular Heartbeat Neurological: Yes Neuropathy Reproductive Disorders: No Sexually Transmitted Disease: No HIV/AIDS: No Genitourinary: No Gastrointestinal: Yes Gastrointestinal Bleed, Diverticulosis Musculoskeletal: Yes Arthritis Endocrine: Yes Diabetes, Non-Insulin dep HEENT: Yes (GLASSES) Cataract Loss of Vision: Denies Hearing Impairment: Denies Cancer: Yes Skin Psychosocial: No Integumentary: Yes (SCALP LESION) Blood Disorders: No Adverse Reaction/Blood Tranf: No (HAS HAD BLOOD WITH NO REACTION) Family Medical History No Pertinent Family Hx Physical Exam Vital Signs Capillary Refill : Height/Weight/BMI Height: 5'8.00" Weight: 163lbs. 0.0oz. 73.135010cy; 24.00 BMI Method:Stated General Appearance: WD/WN, mild distress HEENT: PERRL/EOMI, pharynx normal Neck: full range of motion, normal inspection Respiratory: lungs clear, normal breath sounds, no respiratory distress, no accessory muscle use Cardiovascular: normal peripheral pulses, regular rate, rhythm Peripheral Pulses: 2+ Radial Pulses (R), 2+ Radial Pulses (L) Gastrointestinal: normal bowel sounds, non tender, soft Extremities: normal range of motion, non-tender, normal inspection, normal capillary refill Neurologic/Psychiatric: no motor/sensory deficits, alert, normal mood/affect, oriented x 3, other (Hard of hearing) Skin: normal color, warm/dry Focused Exam Lactate Level 07/04/20 22:10: Lactic Acid Level 1.89 Lactic Acid Level Laboratory Tests Test 07/04/20 22:10 Lactic Acid Level 1.89 MMOL/L (0.50-2.00) Procedures/Interventions Suture Size: 5-0 Progress/Results/Core Measures Results/Orders Lab Results Laboratory Tests Test 07/04/20 22:10 07/04/20 22:20 07/04/20 22:28 Range/Units White Blood Count 9.7 4.3-11.0 10^3/uL Red Blood Count 4.07 L 4.30-5.52 10^6/uL Hemoglobin 12.1 L 13.3-17.7 g/dL Hematocrit 37 L 40-54 % Mean Corpuscular Volume 91 80-99 fL Mean Corpuscular Hemoglobin 30 25-34 pg Mean Corpuscular Hemoglobin Concent 33 32-36 g/dL Red Cell Distribution Width 14.6 H 10.0-14.5 % Platelet Count 227 130-400 10^3/uL Mean Platelet Volume 10.7 9.0-12.2 fL Immature Granulocyte % (Auto) 1 % Neutrophils (%) (Auto) 67 42-75 % Lymphocytes (%) (Auto) 15 12-44 % Monocytes (%) (Auto) 11 0-12 % Eosinophils (%) (Auto) 6 0-10 % Basophils (%) (Auto) 1 0-10 % Neutrophils # (Auto) 6.5 1.8-7.8 10^3/uL Lymphocytes # (Auto) 1.5 1.0-4.0 10^3/uL Monocytes # (Auto) 1.1 H 0.0-1.0 10^3/uL Eosinophils # (Auto) 0.5 H 0.0-0.3 10^3/uL Basophils # (Auto) 0.1 0.0-0.1 10^3/uL Immature Granulocyte # (Auto) 0.1 0.0-0.1 10^3/uL Prothrombin Time 14.1 12.2-14.7 SEC INR Comment 1.1 0.8-1.4 Activated Partial Thromboplast Time 36 H 24-35 SEC Blood Gas Puncture Site RT RADIAL Blood Gas Patient Temperature 36.4 Arterial Blood pH 7.43 7.37-7.43 Arterial Blood Partial Pressure CO2 40 35-45 MMHG Arterial Blood Partial Pressure O2 107 H 79-93 MMHG Arterial Blood HCO3 26 23-27 MMOL/L Arterial Blood Total CO2 27.5 21.0-31.0 MMOL/L Arterial Blood Oxygen Saturation 99 94-100 % Arterial Blood Base Excess 2.2 -2.5-2.5 MMOL/L Tree Test YES-POS Blood Gas Ventilator Setting NO Blood Gas Inspired Oxygen ROOM AIR Sodium Level 132 L 135-145 MMOL/L Potassium Level 4.8 3.6-5.0 MMOL/L Chloride Level 94 L 98-107 MMOL/L Carbon Dioxide Level 24 21-32 MMOL/L Anion Gap 14 5-14 MMOL/L Blood Urea Nitrogen 26 H 7-18 MG/DL Creatinine 1.21 0.60-1.30 MG/DL Estimat Glomerular Filtration Rate 57 BUN/Creatinine Ratio 21 Glucose Level 94 70-105 MG/DL Lactic Acid Level 1.89 0.50-2.00 MMOL/L Calcium Level 9.9 8.5-10.1 MG/DL Corrected Calcium 10.0 8.5-10.1 MG/DL Total Bilirubin 0.5 0.1-1.0 MG/DL Aspartate Amino Transf (AST/SGOT) 16 5-34 U/L Alanine Aminotransferase (ALT/SGPT) 13 0-55 U/L Alkaline Phosphatase 51 40-136 U/L Total Protein 7.2 6.4-8.2 GM/DL Albumin 3.9 3.2-4.5 GM/DL Coronavirus 2019 (VIRGEN) Negative Negative Urine Color YELLOW Urine Clarity CLEAR Urine pH 6.0 5-9 Urine Specific Clear 1.025 H 1.016-1.022 Urine Protein NEGATIVE NEGATIVE Urine Glucose (UA) NEGATIVE NEGATIVE Urine Ketones NEGATIVE NEGATIVE Urine Nitrite NEGATIVE NEGATIVE Urine Bilirubin NEGATIVE NEGATIVE Urine Urobilinogen 0.2 < = 1.0 MG/DL Urine Leukocyte Esterase NEGATIVE NEGATIVE Urine RBC (Auto) NEGATIVE NEGATIVE Urine RBC NONE /HPF Urine WBC NONE /HPF Urine Squamous Epithelial Cells 0-2 /HPF Urine Crystals NONE /LPF Urine Bacteria NEGATIVE /HPF Urine Casts NONE /LPF Urine Mucus NEGATIVE /LPF Urine Culture Indicated NO Micro Results Microbiology 07/04/20 Influenza Types A,B Antigen (SEGUN) - Final, Complete My Orders Orders - LUCY TURNER Cbc With Automated Diff (07/04/20 22:14) Comprehensive Metabolic Panel (07/04/20 22:14) Blood Culture (07/04/20 22:14) Sputum Culture (07/04/20 22:14) Urinalysis (07/04/20 22:14) Urine Culture (07/04/20 22:14) Protime With Inr (07/04/20 22:14) Partial Thromboplastin Time (07/04/20 22:14) Chest 1 View, Ap/Pa Only (07/04/20 22:14) Ed Iv/Invasive Line Start (07/04/20 22:14) Ed Iv/Invasive Line Start (07/04/20 22:14) Vital Signs Adult Sepsis Patie Q15M (07/04/20 22:14) O2 (07/04/20 22:14) Remove Rings In Anticipation O (07/04/20 22:14) Lactic Acid Analyzer (07/04/20 22:14) Lactated Ringers (Lr 1000 Ml Iv Solution (07/04/20 22:15) Ceftriaxone For Iv Use (Rocephin For I (07/04/20 22:15) Metronidazole 500mg/100ml Ivpb (Flagyl 5 (07/04/20 22:15) Arterial Blood Gas (07/04/20 22:14) Covid 19 Inhouse Test (07/04/20 22:18) Influenza A And B Antigens (07/04/20 22:18) Ct Abdomen/Pelvis W (07/04/20 22:18) Ed Iv/Invasive Line Start (07/04/20 22:18) Ns Iv 500 Ml (Sodium Chloride 0.9%) (07/04/20 22:30) Iohexol Injection (Omnipaque 350 Mg/Ml 1 (07/04/20 23:45) Received Contrast (Hold Metformin- Contr (07/04/20 23:45) Sodium Chloride Flush (Catheter Flush Sy (07/04/20 23:45) Ns (Ivpb) (Sodium Chloride 0.9% Ivpb Bag (07/04/20 23:45) Medications Given in ED Current Medications Medications Dose Ordered Sig/Ameya Route Start Time Stop Time Status Last Admin Dose Admin Ceftriaxone Sodium 1000 mg/ Sterile Water 10 ml @ 200 mls/hr ONCE ONCE IV 07/04/20 22:15 07/04/20 22:17 DC 07/04/20 23:58 200 MLS/HR Iohexol 100 ml ONCE ONCE IV 07/04/20 23:45 07/04/20 23:46 DC 07/04/20 23:37 85 ML Lactated Ringer's 1,000 ml @ 0 mls/hr Q0M ONCE IV 07/04/20 22:15 07/04/20 22:17 DC 07/04/20 23:58 999 MLS/HR Metronidazole 100 ml @ 100 mls/hr ONCE ONCE IV 07/04/20 22:15 07/04/20 23:14 DC 07/04/20 23:58 100 MLS/HR Sodium Chloride 10 ml NEEDED PRN IV 07/04/20 23:45 07/04/20 23:37 10 ML Sodium Chloride 100 ml ONCE ONCE IV 07/04/20 23:45 07/04/20 23:46 DC 07/04/20 23:37 80 ML Sodium Chloride 500 ml @ 0 mls/hr Q0M ONCE IV 07/04/20 22:30 07/04/20 22:31 DC 07/04/20 23:58 500 MLS/HR Progress Progress Note #1: Time: 22:43 Progress Note Chest x-ray from the fifth has mild patchy opacities bilaterally which could be consistent with Covid so we have ordered a COVID-19 swab. He was quite hypoxic in the low 80s on arrival so we put him on 3 L and that brought him up to 98%. ABG obtained after he was on oxygen shows good oxygenation 107 PaO2. No CO2 issues. We got labs and blood culture. He does not have a significant white count. We ordered 1-1/2 L of fluid but if his Covid is positive we will probably cut that back a little bit. Because he is having abdominal pain diverticulitis is also a possibility or could be related to the antibiotics that he recently started. We are going to go ahead and get a CT of his abdomen and pelvis. He rates his pain as a 4 out of 10 and does not want anything for it at this moment. Progress Note #2: Time: 23:19 Progress Note Chest x-ray is largely unchanged from previous. Because of his hypoxia and curb 65 score of 2 points we have offered him an inpatient stay. The patient is heading to get a CT of his abdomen and pelvis now. Curb 65: 2 points; Moderate risk group: 6.8% 30-day mortality. Consider inpatient treatment or outpatient with close followup. Diagnostic Imaging Diagonstic Imaging: Xray Plain Films/CT/US/NM/MRI: chest Comments Stable chest x-ray with bilateral patchy infiltrates. Reviewed: Reviewed by Me Diagonstic Imaging: CT Plain Films/CT/US/NM/MRI: abdomen, pelvis Comments No acute appendicitis. Redemonstrated diffuse colonic diverticulosis greatest in the sigmoid colon. Wall thickening with mild adjacent infiltration in the proximal to mid sigmoid colon consistent with diverticulitis, similar to prior studies. Reviewed: Reviewed by Me Departure Communication (Admissions) Time/Spoke to Admitting Phy: 00:20 Discussed the case with Dr. Montoya and she would like the patient PUI and she agrees with antibiotic selection. Impression Primary Impression: Pneumonia Qualified Codes: J18.9 - Pneumonia, unspecified organism Additional Impression: Acute respiratory failure with hypoxia Disposition: ADMITTED INPATIENT Condition: Stable Admissions Decision to Admit Reason: Admit from ER (General) Decision to Admit/Date: Jul 04, 2020 Time/Decision to Admit Time: 23:00 Departure-Patient Inst. Referrals: ANNA CABAN MD (PCP/Family) Primary Care Physician LUCY TURNER Jul 04, 2020 22:18
[2020-07-04 22:27] LABS: ABG BASE EXCESS 2.2 MMOL/L (-2.5-2.5); ABG OXYGEN SATURATION 99 % (94-100); ABG PCO2 40 MMHG (35-45); ABG PH 7.43 (7.37-7.43); ABG PO2 107 MMHG (79-93); ABG TCO2 27.5 MMOL/L (21.0-31.0); ALLENS TEST YES-POS; INSPIRED O2 ROOM AIR; PATIENT TEMP 36.4; VENTILATOR NO
[2020-07-04 22:29] LABS: BASOPHILS # (AUTO) 0.1 10^3/uL (0.0-0.1); BASOPHILS % (AUTO) 1 % (0-10); EOSINOPHILS # (AUTO) 0.5 10^3/uL (0.0-0.3); EOSINOPHILS % (AUTO) 6 % (0-10); HEMATOCRIT 37 % (40-54); HEMOGLOBIN 12.1 g/dL (13.3-17.7); LYMPHOCYTES # (AUTO) 1.5 10^3/uL (1.0-4.0); LYMPHOCYTES % (AUTO) 15 % (12-44); MEAN CORPUSCULAR HEMOGLOBIN 30 pg (25-34); MEAN CORPUSCULAR HGB CONC 33 g/dL (32-36); MEAN CORPUSCULAR VOLUME 91 fL (80-99); MEAN PLATELET VOLUME 10.7 fL (9.0-12.2); MONOCYTES # (AUTO) 1.1 10^3/uL (0.0-1.0); MONOCYTES % (AUTO) 11 % (0-12); NEUTROPHILS # (AUTO) 6.5 10^3/uL (1.8-7.8); NEUTROPHILS % (AUTO) 67 % (42-75); PLATELET COUNT 227 10^3/uL (130-400); WHITE BLOOD COUNT 9.7 10^3/uL (4.3-11.0)
[2020-07-04] MEDS ORDERED: NS IV 500 ML 500 ML IV ONE (22:30)
[2020-07-04 22:37] LABS: INR 1.1 (0.8-1.4); PROTHROMBIN TIME PATIENT 14.1 SEC (12.2-14.7)
[2020-07-04 22:38] LABS: BILIRUBIN,URINE NEGATIVE (NEGATIVE); CLARITY,URINE CLEAR; COLOR,URINE YELLOW; GLUCOSE, URINE (UA) NEGATIVE (NEGATIVE); KETONES,URINE NEGATIVE (NEGATIVE); LEUKOCYTE ESTERASE ,URINE NEGATIVE (NEGATIVE); NITRITE,URINE NEGATIVE (NEGATIVE); PROTEIN,URINE NEGATIVE (NEGATIVE)
[2020-07-04 22:41] LABS: ALBUMIN 3.9 GM/DL (3.2-4.5); POTASSIUM 4.8 MMOL/L (3.6-5.0)
[2020-07-04 22:42] LABS: CALCIUM 9.9 MG/DL (8.5-10.1)
[2020-07-04 22:44] LABS: TOTAL PROTEIN 7.2 GM/DL (6.4-8.2)
[2020-07-04 22:45] LABS: BILIRUBIN,TOTAL 0.5 MG/DL (0.1-1.0)
[2020-07-04 22:47] LABS: CREATININE SERUM 1.21 MG/DL (0.60-1.30)
[2020-07-04 22:51] LABS: BACTERIA,URINE NEGATIVE /HPF; SQUAMOUS EPITHELIAL CELL,UR 0-2 /HPF
[2020-07-04] MEDS ORDERED: NS 100 ML (IVPB) BAG IV ONE (23:45)
[2020-07-04] MEDS ORDERED: IOHEXOL 350 MG/ML 100 ML (OMNIPAQUE 350) VIAL IV ONE (23:45)
[2020-07-04] MEDS ORDERED: HOLD METFORMIN - RECEIVED CONTRAST 20 ML VIAL IV SCH (23:45)
[2020-07-04] MEDS ORDERED: CATHETER FLUSH 10 ML SYR IV PRN (23:45)
[2020-07-05] MEDS ORDERED: LACTATED RINGERS 1,000 ML IV ONE (01:17)
[2020-07-05 01:20] VITALS: BP 125/60
[2020-07-05] MEDS ORDERED: AZITHROMYCIN 250 MG TAB (ZITHROMAX) PO SCH (01:27)
[2020-07-05] MEDS ORDERED: ACETAMINOPHEN 325 MG TABLET PO PRN (01:30)
[2020-07-05] MEDS ORDERED: fentaNYL INJ 100 MCG/2 ML AMP IVP PRN (01:30)
[2020-07-05] MEDS ORDERED: ONDANSETRON 4 MG/2 ML (SDV) Z0FRAN IVP PRN (01:30)
[2020-07-05] MEDS: LACTATED RINGERS 1,000 ML IV SCH ×2 (01:32→09:26)
[2020-07-05 02:10] VITALS: BP 125/60
[2020-07-05] MEDS ORDERED: RT-ALBUTEROL/IPRATROPIUM 3 ML (DUONEB) VIAL INH PRN (02:15)
[2020-07-05 04:59] VITALS: BP 150/73
[2020-07-05] MEDS: inSUlin ASPART (NovoLOG) 1 UNIT/0.01 ML (CHARGE PER UNIT) SC SCH ×3 (05:15→16:03)
[2020-07-05 05:57] LABS: BASOPHILS % (AUTO) 0 % (0-10); EOSINOPHILS # (AUTO) 0.4 10^3/uL (0.0-0.3); EOSINOPHILS % (AUTO) 4 % (0-10); HEMATOCRIT 32 % (40-54); HEMOGLOBIN 10.4 g/dL (13.3-17.7); LYMPHOCYTES # (AUTO) 1.3 10^3/uL (1.0-4.0); LYMPHOCYTES % (AUTO) 12 % (12-44); MEAN CORPUSCULAR HEMOGLOBIN 30 pg (25-34); MEAN CORPUSCULAR HGB CONC 33 g/dL (32-36); MEAN CORPUSCULAR VOLUME 91 fL (80-99); MEAN PLATELET VOLUME 10.6 fL (9.0-12.2); MONOCYTES % (AUTO) 10 % (0-12); NEUTROPHILS # (AUTO) 7.5 10^3/uL (1.8-7.8); NEUTROPHILS % (AUTO) 73 % (42-75); PLATELET COUNT 177 10^3/uL (130-400); WHITE BLOOD COUNT 10.3 10^3/uL (4.3-11.0)
--- NOTE | 2020-07-05 06:14 | Diagnostic Imaging Report ---
EXAMINATION: Chest 1 view HISTORY: Bilateral lower abdominal pain. Weakness. Sepsis. COMPARISON: 06/28/2020. FINDINGS: The lung volumes are normal. No focal consolidation is seen. Chronic scarring is seen throughout the lungs, greatest in the lung bases. No large pleural effusion or pneumothorax is seen. The cardiomediastinal silhouette is prominent. There is calcified aortic atherosclerotic plaque. No acute osseous abnormality is seen. IMPRESSION: 1. Chronic fibrotic changes throughout the lungs without focal consolidation or mass. 2. Mild cardiomegaly. No overt pulmonary edema. Dictated by: Dictated on workstation # [id number]
[2020-07-05 06:15] LABS: ALANINE AMINOTRANSFERASE 11 U/L (0-55); ALBUMIN 3.2 GM/DL (3.2-4.5); ALKALINE PHOSPHATASE 42 U/L (40-136); BILIRUBIN,TOTAL 0.4 MG/DL (0.1-1.0); BUN/CREATININE RATIO 21; CALCIUM 8.8 MG/DL (8.5-10.1); CARBON DIOXIDE 24 MMOL/L (21-32); CHLORIDE 97 MMOL/L (98-107); CREATININE SERUM 0.91 MG/DL (0.60-1.30); GFR ESTIMATED > 60; GLUCOSE 107 MG/DL (70-105); POTASSIUM 4.3 MMOL/L (3.6-5.0); SODIUM 129 MMOL/L (135-145); TOTAL PROTEIN 5.8 GM/DL (6.4-8.2)
--- NOTE | 2020-07-05 06:25 | Diagnostic Imaging Report ---
EXAMINATION: CT Abdomen and Pelvis with intravenous contrast. TECHNIQUE: Multiple contiguous axial images were obtained through the abdomen and pelvis after the uneventful administration of intravenous contrast. All CT scans use one or more of the following dose optimizing techniques: automated exposure control, MA and/or KvP adjustment based on a patient size and exam type, or iterative reconstruction. HISTORY: Bilateral lower abdominal pain. Weakness. COMPARISON: 03/19/2019. FINDINGS: The heart is prominent. Chronic scarring is seen in the lung bases bilaterally. No focal consolidation. The liver, spleen, pancreas, adrenal glands, and kidneys demonstrate no acute abnormalities. The gallbladder is mildly distended. No intra or extrahepatic biliary dilation is seen. There is no pathologically enlarged mesenteric or retroperitoneal adenopathy. The bowel loops are nondilated. The appendix is visualized in the right lower quadrant and has a normal appearance. Diverticulosis of the colon is seen, greatest in the sigmoid colon. There is no free fluid or free air. No acute osseous abnormalities. There is calcified aortic and iliac atherosclerotic plaque without aneurysm. Small fat-containing left inguinal hernia is noted. Ureters and bladder are grossly normal. There is no free air, loculated collection, or adenopathy in the pelvis. IMPRESSION: 1. Diverticulosis without CT evidence of acute diverticulitis. No free fluid or free air. The preliminary report described wall thickening and inflammation involving the sigmoid colon which is felt to represent an overcall. Dictated by: Dictated on workstation # [id number]
[2020-07-05 08:00] VITALS: BP 129/62
[2020-07-05] MEDS ORDERED: metroNIDAZOLE 500 MG/100 ML IVPB (PRE-MIX) IV SCH (09:00)
[2020-07-05] MEDS ORDERED: LACTOBACILLUS ACIDOPHILUS (PROBIOTIC) CAPSULE PO SCH (09:00)
[2020-07-05 12:00] VITALS: BP 166/68
[2020-07-05] MEDS ORDERED: LEVO750T39 PO (13:50)
[2020-07-05 16:25] VITALS: BP 161/74
[2020-07-05] MEDS ORDERED: cefTRIAXone 1,000 MG/SWFI 10 ML IV PUSH IV SCH ×2 (21:00)
[2020-07-06] MEDS ORDERED: AZITHROMYCIN 250 MG TAB (ZITHROMAX) PO SCH (09:00)
--- NOTE | 2020-07-23 07:51 | Short Stay Summary-Hospitalist ---
History of Present Illness HPI/Chief Complaint Antolin Reyes is an 89 year old male who presented with abdominal pain. He has a history of diverticulitis. He was also having trouble with nausea and anorexia. His lab and imaging workup revealed no acute abdominal pathology, but did show diverticulosis. He had been diagnosed with pneumonia as an outpatient and had been on antibiotics. His workup showed no evidence of ongoing pneumonia and his antibiotics were discontinued. His symptoms improved and he was discharged home in stable condition. He required oxygen which appeared to be a chronic issue. Hequalified for home oxygen at 2 L continuously. Source: patient Exam Limitations: no limitations Date Seen 07/05/20 Time Seen by a Provider: 10:00 Attending Physician Pawan Andres MD PCP Roger Huang MD Referring Physician Date of Admission Jul 05, 2020 at 00:27 Home Medications & Allergies Home Medications Reviewed patient Home Medication Reconciliation performed by pharmacy medication reconciliations player piano technician and/or nursing. Patients Allergies have been reviewed. Allergies Allergies Coded Allergies No Known Drug Allergies (Unverified04/22/19) Past Vrqhvqo-Zrjdrq-Idxvvw Hx Past Med/Social Hx: Reviewed Nursing Past Med/Soc Hx Patient Social History Alcohol Use: Occasionally Uses Alcohol Beverage of Choice: Wine Recreational Drug Use: No Drug of Choice: Denies Smoking Status: Former Smoker Former Smoker, Quit: Dec 11, 1977 Type Used: Pipe 2nd Hand Smoke Exposure: No Recent Foreign Travel: No Contact w/other who traveled: No Recent Hopitalizations: No Recent Infectious Disease Expo: No Immunizations Up To Date Tetanus Booster (TDap): Unknown Date of Pneumonia Vaccine: Mar 29, 2016 Date of Influenza Vaccine: Dec 25, 2019 Seasonal Allergies Seasonal Allergies: No Past Medical History Surgeries: Tonsillectomy, Vasectomy Currently Using CPAP: No Currently Using BIPAP: No Cardiac: High Cholesterol, Hypertension, Irregular Heartbeat Neurological: Neuropathy Reproductive: No Sexually Transmitted Disease: No HIV/AIDS: No Gastrointestinal: Gastrointestinal Bleed, Diverticulosis Musculoskeletal: Arthritis Endocrine: Diabetes, Non-Insulin dep HEENT: Cataract Loss of Vision: Denies Hearing Impairment: Denies Cancer: Skin History of Blood Disorders: No Adverse Reaction to Blood Butts: No (HAS HAD BLOOD WITH NO REACTION) Family History No Pertinent Family Hx Review of Systems Constitutional: no symptoms reported, see HPI EENTM: no symptoms reported Respiratory: no symptoms reported Cardiovascular: no symptoms reported Gastrointestinal: abdominal pain Genitourinary: no symptoms reported Musculoskeletal: no symptoms reported Skin: no symptoms reported Psychiatric/Neurological: No Symptoms Reported Physical Exam Physical Exam Vital Signs Capillary Refill : Less Than 3 Seconds Height, Weight, BMI Height: 5'8.00" Weight: 163lbs. 0.0oz. 73.509124eq; 20.27 BMI Method:Stated General Appearance: No Apparent Distress, Thin HEENT: PERRL/EOMI, Pharynx Normal Respiratory: Lungs Clear, Normal Breath Sounds, No Respiratory Distress Cardiovascular: Regular Rate, Rhythm, No Edema, No Murmur Gastrointestinal: Normal Bowel Sounds, Non Tender, Soft Extremity: Normal Inspection, Non Tender, No Pedal Edema Neurologic/Psychiatric: Alert, Oriented x3, No Motor/Sensory Deficits, Normal Mood/Affect Skin: Normal Color, Warm/Dry Results Results/Procedures Labs Patient resulted labs reviewed. Imaging: Reviewed Imaging Report Short Stay Diagnosis Discharge Diagnosis-Short Stay Admission Diagnosis Pneumonia Final Discharge Diagnosis Abdominal pain Conclusion Plan Pneumonia No evidence of ongoing pneumonia Stop taking antibiotics Chronic respiratory failure with hypoxia Home oxygen study revealed 2 L continuous need Abdominal pain Transient, resolved, no further workup or treatment needed at this time Diagnosis/Problems Diagnosis/Problems (1) Abdominal pain Status: Acute (2) Diverticulosis Status: Chronic (3) Chronic respiratory failure with hypoxia Status: Acute PAWAN ANDRES MD Jul 23, 2020 07:51
== END 2020-07-05 17:41 | disposition home or self-care (01) | DRG 392 ==
LOC: EDUNIT# 21:55 → ER 21:58 → 4TH 07-05 00:27
PROVIDERS: ADMIT Family Medicine; ATTEND Internal Medicine
DX: R10.32 Left lower quadrant pain (principal); J96.11 Chronic respiratory failure with hypoxia; R10.31 Right lower quadrant pain; K57.90 Diverticulosis of intestine, part unspecified, without perforation or abscess without bleeding; I10 Essential (primary) hypertension; E11.40 Type 2 diabetes mellitus with diabetic neuropathy, unspecified; E78.00 Pure hypercholesterolemia, unspecified; M19.91 Primary osteoarthritis, unspecified site; Z20.822 Contact with and (suspected) exposure to COVID-19; H26.9 Unspecified cataract; Z87.891 Personal history of nicotine dependence; Z95.5 Presence of coronary angioplasty implant and graft; Z79.84 Long term (current) use of oral hypoglycemic drugs; Z79.82 Long term (current) use of aspirin
CPT/HCPCS: 36415; 71045; 74177; 80053; 81000; 82805; 82962; 83605; 84145; 85025; 85610; 85730; 87040; 87088; 87635; 87804; 94761; 96374; 96375

== ENCOUNTER → 2020-07-09 | Outpatient (CLI) | payer MEDICARE ==
[~2020-07-09] MED LIST changes: +LEVO750T39 PO
--- NOTE | 2020-07-09 11:09 | Diagnostic Imaging Report ---
INDICATION: Dysphagia. Study was performed in conjunction with speech pathology. Video fluoroscopy was performed during swallowing of barium in multiple consistencies. Total of 1 minute and 15 seconds of fluoroscopic time were utilized. Patient ingested thin liquid with a spoon and straw. Patient also ingested puree as well as mechanical soft and meat consistency as well as a cracker consistency. Oral phase unremarkable. There is normal epiglottic tilt and laryngeal elevation. No penetration or aspiration was observed. There was moderate vallecular residue noted with multiple consistencies. This did improve with chin tuck maneuvers. IMPRESSION: No evidence of penetration or aspiration. There was moderate vallecular residue noted. Dictated by: Dictated on workstation # [id number]
== END ==
LOC: RAD 09:45
PROVIDERS: ATTEND Internal Medicine
DX: R13.10 Dysphagia, unspecified (principal)
CPT/HCPCS: 74230

== ENCOUNTER → 2020-07-21 | Outpatient (CLI) | payer MEDICARE ==
[~2020-07-21] MED LIST changes: +CATHETER FLUSH 10 ML SYR IV PRN; +HOLD METFORMIN - RECEIVED CONTRAST 20 ML VIAL IV SCH; +IOHEXOL 350 MG/ML 100 ML (OMNIPAQUE 350) VIAL IV ONE; +NS 100 ML (IVPB) BAG IV ONE
--- NOTE | 2020-07-21 14:24 | Diagnostic Imaging Report ---
EXAMINATION: CT chest with intravenous contrast. TECHNIQUE: Multiple contiguous axial images were obtained through the chest after the uneventful administration of intravenous contrast. All CT scans use one or more of the following dose optimizing techniques: automated exposure control, MA and/or KvP adjustment based on patient size and exam type or iterative reconstruction. HISTORY: Shortness of breath and chest pain. COMPARISON: 04/02/2015. FINDINGS: There has been progression of moderate peripheral reticulations with a basilar predominance and traction bronchiectasis. There is mild honeycombing in the bases that has developed compared to the prior exam. No groundglass. There is no edema or pneumonia. No pleural effusion. No pneumothorax. No suspicious nodules. There is no axillary or supraclavicular lymphadenopathy. There is no mediastinal lymphadenopathy. Heart size is normal. There are moderate coronary artery calcifications. No pericardial effusion. Aorta is normal in caliber. Limited views of the upper abdomen are unremarkable. There are no suspicious osseous lesions. IMPRESSION: 1. Progression of moderate peripheral reticulations with basilar predominance and traction bronchiectasis and honeycombing. This is a typical CT pattern of usual interstitial pneumonia according to Fleischner guidelines. Dictated by: Dictated on workstation # [id number]
== END ==
LOC: RAD 11:26
PROVIDERS: ATTEND Internal Medicine
DX: J84.10 Pulmonary fibrosis, unspecified (principal); J47.9 Bronchiectasis, uncomplicated; J98.4 Other disorders of lung
CPT/HCPCS: 71260

== ENCOUNTER 2020-07-23 05:29 | Outpatient (RCR) | payer MEDICARE ==
[~2020-07-23] VITALS: Ht 172 cm; Wt 65.0 kg
[~2020-07-23 05:29] MED LIST changes: -CATHETER FLUSH 10 ML SYR IV PRN; -HOLD METFORMIN - RECEIVED CONTRAST 20 ML VIAL IV SCH; -IOHEXOL 350 MG/ML 100 ML (OMNIPAQUE 350) VIAL IV ONE; -NS 100 ML (IVPB) BAG IV ONE
== END 2020-07-23 09:19 | disposition home or self-care (01) ==
LOC: PREOP 05:29
PROVIDERS: ATTEND Surgery
DX: Z01.812 Encounter for preprocedural laboratory examination (principal); R13.10 Dysphagia, unspecified; Z20.822 Contact with and (suspected) exposure to COVID-19
CPT/HCPCS: 87635

== ENCOUNTER 2020-07-27 09:31 | Day surgery (SDC) | payer MEDICARE ==
[2020-07-27] MEDS ORDERED: LACTATED RINGERS 1,000 ML IV STA (09:33)
--- NOTE | 2020-07-27 09:43 | Progress Note-Pre Operative ---
Pre-Operative Progress Note H&P Reviewed The H&P was reviewed, patient examined and no changes noted. Date Seen by Provider: July 27, 2020 Time Seen by Provider: 09:43 Date H&P Reviewed: July 27, 2020 Time H&P Reviewed: 09:43 Pre-Operative Diagnosis: dysphagia JANICE SANCHEZ DO July 27, 2020 09:43
[2020-07-27] MEDS ORDERED: HURRICAINE EXT TUBE (BENZOCAINE) XX PRN (09:45)
== END 2020-07-27 10:00 | disposition home or self-care (01) ==
LOC: ENDO 09:31
PROVIDERS: ATTEND Surgery
DX: R13.10 Dysphagia, unspecified (principal); Z53.8 Procedure and treatment not carried out for other reasons

== ENCOUNTER → 2020-07-30 | Outpatient (CLI) | payer MEDICARE ==
--- NOTE | 2020-07-30 09:38 | Diagnostic Imaging Report ---
INDICATION: Pneumonia. Time of exam: 9:26 AM Correlation is made with prior chest from 07/04/2020. Heart size is stable. There are generalized interstitial changes in both lungs which is largely chronic. Minimal superimposed infiltrate cannot be entirely excluded. No parenchymal consolidation is seen. There is no effusion or pneumothorax identified. IMPRESSION: Chronic interstitial changes, similar to examination from one month earlier. Minimal superimposed pneumonia cannot be entirely excluded. No other abnormality is seen. Dictated by: Dictated on workstation # [id number]
--- NOTE | 2020-07-30 12:37 | Diagnostic Imaging Report ---
PROCEDURE: US Gallbladder. TECHNIQUE: Multiple real-time grayscale images were obtained over the right upper quadrant in various projections. INDICATION: Right upper quadrant pain. Liver measures 13.9 cm in size. No discrete liver mass is detected. Portal vein is patent and shows normal direction of flow. Gallbladder is without stones or sludge. There is no wall thickening or biliary ductal dilatation. Pancreas is unremarkable apart from small calcifications within the pancreas. Aorta and IVC are obscured. Right kidneys without calculi or hydronephrosis. There is no ascites. IMPRESSION: Somewhat limited study due to patient body habitus and overlying bowel gas. No significant abnormality is seen. Dictated by: Dictated on workstation # [id number]
== END ==
LOC: RAD 08:45
PROVIDERS: ATTEND Physician Assistant
DX: J18.9 Pneumonia, unspecified organism (principal); R10.11 Right upper quadrant pain
CPT/HCPCS: 71046; 76705

== ENCOUNTER 2020-08-03 12:42 | Outpatient (RCR) | payer MEDICARE ==
[2020-08-17] MEDS ORDERED: IPRA4AER IH (12:09)
[2020-08-17] MEDS ORDERED: OMEP40CA27 PO (12:17)
[2020-08-17] MEDS ORDERED: HYDR12.56 PO (12:17)
[2020-08-17] MEDS ORDERED: [UNRECOGNIZED DRUG - CODE] IM (12:17)
[2020-08-17] MEDS ORDERED: CLOP75TA28 PO (12:17)
[2020-08-17] MEDS ORDERED: METF-399 PO (12:17)
[2020-08-17] MEDS ORDERED: MULT-1136 PO (12:17)
== END 2020-08-03 13:45 | disposition home or self-care (01) ==
PROVIDERS: ATTEND Surgery
DX: R13.10 Dysphagia, unspecified (principal)

== ENCOUNTER 2020-08-18 05:31 | Outpatient (RCR) | payer MEDICARE ==
[~2020-08-18] VITALS: Ht 172.7 cm; Wt 65.8 kg
[~2020-08-18 05:31] MED LIST changes: +CLOP75TA28 PO; +HYDR12.56 PO; +IPRA4AER IH; +MULT-1136 PO; +[UNRECOGNIZED DRUG - CODE] IM
== END 2020-08-18 08:40 | disposition home or self-care (01) ==
LOC: PREOP 05:31
PROVIDERS: ATTEND Surgery
DX: Z01.812 Encounter for preprocedural laboratory examination (principal); R13.10 Dysphagia, unspecified; R10.13 Epigastric pain; Z20.822 Contact with and (suspected) exposure to COVID-19
CPT/HCPCS: 87635

== ENCOUNTER 2020-08-20 12:32 | Day surgery (SDC) | payer MEDICARE ==
[~2020-08-20] VITALS: Ht 172 cm; Wt 65.8 kg
[~2020-08-20 12:32] MED LIST changes: +LACTATED RINGERS 1,000 ML IV ONE
[2020-08-20] MEDS ORDERED: LACTATED RINGERS 1,000 ML IV STA (12:33)
[2020-08-20] MEDS ORDERED: HURRICAINE EXT TUBE (BENZOCAINE) XX PRN (12:45)
[2020-08-20 12:55] VITALS: BP 173/77
--- NOTE | 2020-08-20 13:01 | Progress Note-Pre Operative ---
Pre-Operative Progress Note H&P Reviewed The H&P was reviewed, patient examined and no changes noted. Date Seen by Provider: August 20, 2020 Time Seen by Provider: 13:01 Date H&P Reviewed: August 20, 2020 Time H&P Reviewed: 13:01 Pre-Operative Diagnosis: dysphagia, epigastric abd pain JANICE SANCHEZ DO August 20, 2020 13:01
[2020-08-20] MEDS ORDERED: proPOfol 200 MG/20 ML (DIPRIVAN) VIAL IV ONE (13:28)
[2020-08-20 14:15] VITALS: BP 105/59
[2020-08-20 14:20] VITALS: BP 109/55
[2020-08-20 14:25] VITALS: BP 109/55
--- NOTE | 2020-08-20 14:45 | Anesthesia-General Post-Op ---
MAC Patient Condition Mental Status/LOC: Same as Preop Cardiovascular: Satisfactory Nausea/Vomiting: Absent Respiratory: Satisfactory Pain: Controlled Complications: Absent Post Op Complications Complications None Follow Up Care/Instructions Patient Instructions None needed. Anesthesiology Discharge Order Discharge Order Patient is doing well, no complaints, stable vital signs, no apparent adverse anesthesia problems. No complications reported per nursing. DAVID SU CRNA August 20, 2020 14:45
[2020-08-20 14:48] VITALS: BP 105/60
--- NOTE | 2020-08-20 14:52 | Discharge Inst-Simple/Standard ---
Discharge Inst-Standard Discharge Medications New, Converted or Re-Newed RX: RX on Chart Patient Instructions/Follow Up Plan of Care/Instructions/FU: 2 weeks ya Activity as Tolerated: Yes Discharge Diet: Regular Diet JANICE SANCHEZ DO August 20, 2020 14:52
--- NOTE | 2020-08-21 02:18 | OPERATIVE REPORT ---
DATE OF SERVICE: 08/20/2020 PREOPERATIVE DIAGNOSIS: Dysphagia. POSTOPERATIVE DIAGNOSES: Hiatal hernia, Olson's esophagus. PROCEDURE: EGD with biopsy. SURGEON: Janice Santoro DO ANESTHESIA: Per ULTRASOUND SUPERVISOR. ESTIMATED BLOOD LOSS: None. COMPLICATIONS: None. INDICATIONS: The patient is an 89-year-old male with dysphagia symptoms. He understands risks and benefits of procedure. Consent was signed in the chart. DESCRIPTION OF PROCEDURE: The patient was taken to the endoscopy suite, placed in left lateral recumbent position. Timeout was performed. Scope was inserted in mouth, down the esophagus, stomach and into the duodenum without difficulty. There were no polyps, masses or ulcerations within the duodenum. Scope was slowly retracted back into the stomach where it was further insufflated. Slight erythematous changes were present. Biopsy of the antrum was obtained. No polyps, masses or ulcerations. Scope was retroflexed noting hiatal hernia, no other pathology. Scope was returned to its normal position, slowly withdrawn to distal esophagus, which had changes consistent with Olson's esophagus. Biopsies were obtained. Scope was then slowly retracted back until completely removed, noting no other pathology. The patient tolerated procedure well without any complications. He was taken to the recovery room in stable condition. RECOMMENDATIONS: The patient had to followup on pathology in a couple of weeks. Any issues before that be seen at that time. Job ID: [id number] DocumentID: [id number] Dictated Date: 08/20/2020 21:25:31 Family Support Specialist Date: 08/21/2020 02:18:00 Dictated By: JANICE SANTORO DO
== END 2020-08-20 15:04 | disposition home or self-care (01) ==
LOC: ENDO 12:32
PROVIDERS: ATTEND Surgery
DX: K29.50 Unspecified chronic gastritis without bleeding (principal); K22.70 Barrett's esophagus without dysplasia; K44.9 Diaphragmatic hernia without obstruction or gangrene; I10 Essential (primary) hypertension; I25.10 Atherosclerotic heart disease of native coronary artery without angina pectoris; E11.40 Type 2 diabetes mellitus with diabetic neuropathy, unspecified; K21.9 Gastro-esophageal reflux disease without esophagitis; E78.2 Mixed hyperlipidemia; I25.2 Old myocardial infarction; Z79.899 Other long term (current) drug therapy; Z79.84 Long term (current) use of oral hypoglycemic drugs; Z87.891 Personal history of nicotine dependence
CPT/HCPCS: 82947

== ENCOUNTER 2020-11-25 14:30 | Outpatient (RCR) | payer MEDICARE ==
[~2020-11-25 14:30] MED LIST changes: -LACTATED RINGERS 1,000 ML IV ONE; -OMEP40CA27 PO; +OMEP40CA6 PO
== END 2020-11-29 | disposition home or self-care (01) ==
PROVIDERS: ATTEND Internal Medicine Critical Care Medicine
DX: J84.112 Idiopathic pulmonary fibrosis (principal); I10 Essential (primary) hypertension; E11.9 Type 2 diabetes mellitus without complications

== ENCOUNTER 2020-12-16 17:09 | Outpatient (RCR) | payer MEDICARE | END 2020-12-23 14:10 | disposition home or self-care (01) | PROVIDERS: ATTEND Internal Medicine Critical Care Medicine | DX: J84.112 Idiopathic pulmonary fibrosis (principal); R09.02 Hypoxemia; I10 Essential (primary) hypertension; E11.9 Type 2 diabetes mellitus without complications; Z95.5 Presence of coronary angioplasty implant and graft ==